=== PATIENT | female | born 1965 | race Caucasian/White ===

== ENCOUNTER 2019-07-21 07:40 | Outpatient (CLI) | payer OTHER, SELFPAY ==
[2019-07-21 08:31] LABS: Basophils Percent Auto 0.5 % (0.2-1.2); Eosinophils Absolute Auto 0.3 K/mm3 (0-0.3); Eosinophils Percent Auto 5.2 % (0-4.4); Hematocrit 37.4 % (37.0-47.0); Hemoglobin 12.2 g/dL (12.0-15.0); Immature Granulocyte Absolute 0.01 K/mm3 (0.00-0.031); Immature Granulocyte Percent A 0.2 % (0-0.5); Lymphocytes Absolute Auto 1.69 K/mm3 (0.9-3.2); Lymphocytes Percent Auto 25.9 % (18.3-44.2); Mean Corpuscular HGB Conc 32.6 g/dl (32-36); Mean Corpuscular Hemoglobin 31.2 pg (26-34); Mean Corpuscular Volume 95.7 fl (80-100); Mean Platelet Volume 10.3 fl (7.4-10.4); Monocytes Absolute Auto 0.5 K/mm3 (0.1-0.6); Monocytes Percent Auto 7.5 % (2.6-8.5); Neutrophils Percent Auto 60.7 % (45.5-73.1); Platelet Count Result 235 k/mm3 (150-375); Red Blood Count 3.91 M/mm3 (4.2-5.4); Red Cell Distribution Width 13.1 % (11.5-14.5); White Blood Count 6.5 K/mm3 (4.5-10.0)
[2019-07-21 08:37] LABS: Add Urine Microscopic? YES; Appearance Urine Cloudy (Clear); Bacteria Urine Trace /hpf; Bilirubin Urine Negative (Negative); Blood Urine Negative (Negative); Color Urine Straw (Yellow); Glucose Urine UA Negative (Negative); Ketones Urine Negative (Negative); Leukocyte Esterase Ur Trace LEU/UL (Negative); Nitrate Urine Negative (Negative); Protein Urine Negative (Negative); Squamous Epithelial Cell Urine Many /hpf (Few); Urobilinogen Urine Negative mg/dL (<2.0)
[2019-07-21 08:40] LABS: Hemoglobin A1C 5.8 % (<5.7)
[2019-07-21 08:45] LABS: Rheumatoid Factor < 8.6 IU/ML (<12)
[2019-07-21 08:49] LABS: Alanine Aminotransferase 16 U/L (4-35); Albumin Level 4.4 g/dL (3.5-5.1); Alkaline Phosphatase 70 U/L (38-126); Aspartate Amino Transferase 31 U/L (14-36); Bilirubin,Total 0.4 mg/dL (0.2-1.3); Blood Urea Nitrogen 24 mg/dL (7-17); CRP < 0.5 mg/dL (<1.0); Calcium 8.8 mg/dL (8.4-10.2); Carbon Dioxide 29 mmol/L (22-30); Chloride 99 mmol/L (98-107); Cholesterol 225 mg/dL (0-200); Estimated Glomerular Filt Rate > 60; Glucose 97 mg/dL (65-105); HDL Direct 69 mg/dL; Sodium 133 mmol/L (137-145); Triglycerides 69 mg/dL (<150); Uric Acid 4.3 mg/dL (2.5-7.5)
[2019-07-21 08:54] LABS: LDL Cholesterol Direct 139 mg/dL
[2019-07-21 08:55] LABS: Specific Grav Ur 1.004 (1.001-1.035)
[2019-07-21 09:13] LABS: Thyroid Stimulating Hormone 0.027 uIU/mL (0.465-4.680); Total Triiodothyronine (T3) 1.04 NG/ML (0.97-1.69)
[2019-07-21 10:02] LABS: Erythrocyte Sedimentation Rate 33 mm/hr (0-20)
[2019-07-23 10:31] LABS: Anti Cyclic Citrullinated Pept <16 Units (<20)
== END 2019-07-21 07:41 | disposition home or self-care (01) ==
PROVIDERS: PCP Physician Assistant; Visit Provider Physician Assistant
DX: E03.8 Other specified hypothyroidism (principal); M25.50 Pain in unspecified joint; Z78.0 Asymptomatic menopausal state; Z79.899 Other long term (current) drug therapy; Z13.220 Encounter for screening for lipoid disorders; Z13.1 Encounter for screening for diabetes mellitus
CPT/HCPCS: 36415; 80053; 80061; 81001; 82306; 83036; 84439; 84443; 84480; 84550; 85025; 85652; 86038; 86140; 86200; 86430

== ENCOUNTER 2019-09-09 09:08 | Outpatient (CLI) | payer OTHER, SELFPAY ==
[2019-09-09 09:40] LABS: Anion Gap 11.9 mmol/L (7-16); Blood Urea Nitrogen 20 mg/dL (7-17); Calcium 9.2 mg/dL (8.4-10.2); Carbon Dioxide 26 mmol/L (22-30); Chloride 102 mmol/L (98-107); Estimated Glomerular Filt Rate > 60; Glucose 107 mg/dL (65-105); Potassium 4.9 mmol/L (3.4-5.0); Sodium 135 mmol/L (137-145)
== END 2019-09-09 09:09 | disposition home or self-care (01) ==
PROVIDERS: PCP Physician Assistant; Visit Provider Physician Assistant
DX: E87.1 Hypo-osmolality and hyponatremia (principal)
CPT/HCPCS: 36415; 80048

== ENCOUNTER 2020-02-17 06:42 | Outpatient (CLI) | payer OTHER, SELFPAY ==
[2020-02-17 07:32] LABS: Basophils Percent Auto 0.4 % (0.2-1.2); Eosinophils Absolute Auto 0.2 K/mm3 (0-0.3); Eosinophils Percent Auto 4.6 % (0-4.4); Hematocrit 32.7 % (37.0-47.0); Hemoglobin 10.8 g/dL (12.0-15.0); Immature Granulocyte Absolute 0.01 K/mm3 (0.00-0.031); Immature Granulocyte Percent A 0.2 % (0-0.5); Lymphocytes Absolute Auto 1.44 K/mm3 (0.9-3.2); Lymphocytes Percent Auto 27.6 % (18.3-44.2); Mean Corpuscular Hemoglobin 31.9 pg (26-34); Mean Corpuscular Volume 96.5 fl (80-100); Mean Platelet Volume 9.8 fl (7.4-10.4); Monocytes Absolute Auto 0.4 K/mm3 (0.1-0.6); Neutrophils Absolute Auto 3.1 K/mm3 (1.3-6.7); Neutrophils Percent Auto 59.2 % (45.5-73.1); Platelet Count Result 224 k/mm3 (150-375); Red Blood Count 3.39 M/mm3 (4.2-5.4); Red Cell Distribution Width 13.1 % (11.5-14.5); White Blood Count 5.2 K/mm3 (4.5-10.0)
[2020-02-17 07:53] LABS: Alanine Aminotransferase 26 U/L (4-35); Albumin Level 3.9 g/dL (3.5-5.1); Alkaline Phosphatase 68 U/L (38-126); Anion Gap 5 mmol/L (8-16); Aspartate Amino Transferase 37 U/L (14-36); Bilirubin,Total 0.4 mg/dL (0.2-1.3); Blood Urea Nitrogen 16 mg/dL (7-17); CRP < 0.5 mg/dL (<1.0); Calcium 8.9 mg/dL (8.4-10.2); Carbon Dioxide 28 mmol/L (22-30); Chloride 104 mmol/L (98-107); Cholesterol 206 mg/dL (0-200); Estimated Glomerular Filt Rate > 60; Glucose 93 mg/dL (65-105); HDL Direct 58 mg/dL; Potassium 4.2 mmol/L (3.4-5.0); Sodium 137 mmol/L (137-145); Triglycerides 93 mg/dL (<150)
[2020-02-17 07:54] LABS: Hemoglobin A1C 5.3 % (<5.7)
[2020-02-17 07:57] LABS: Rheumatoid Factor < 8.6 IU/ML (<12)
[2020-02-17 08:02] LABS: LDL Cholesterol Direct 126 mg/dL
[2020-02-17 08:21] LABS: Free T4 Free Thyroxine 1.93 ng/mL (0.78-2.19); Thyroid Stimulating Hormone < 0.015 uIU/mL (0.465-4.680)
[2020-02-17 08:23] LABS: Erythrocyte Sedimentation Rate 45 mm/hr (0-20); Iron 59 ug/dL (37-170); Percent Iron Saturation 20 % (20-50)
[2020-02-19 13:30] LABS: Thyroid Stimulating Immunoglob <89 % baseline (<140)
[2020-02-20 02:12] LABS: Insulin Level Total 3.2 uIU/mL (<=19.6); Thyroid Peroxidase Antibodies 1 IU/mL (<9)
[2020-02-20 09:36] LABS: Anti Cyclic Citrullinated Pept <16 Units (<20)
[2020-02-20 14:57] LABS: DHEA-Sulfate 106 mcg/dL (8-188)
[2020-02-21 12:00] LABS: Testosterone Free 0.9 pg/mL (0.1-6.4); Testosterone Total 11 ng/dL (2-45)
[2020-02-21 12:21] LABS: Anti Nuclear Antibody Titer 1:40 (Negative)
== END 2020-02-17 06:43 | disposition home or self-care (01) ==
PROVIDERS: PCP Physician Assistant; Visit Provider Internal Medicine Endocrinology, Diabetes & Metabolism
DX: E06.3 Autoimmune thyroiditis (principal); R73.01 Impaired fasting glucose; L65.9 Nonscarring hair loss, unspecified; M19.90 Unspecified osteoarthritis, unspecified site
CPT/HCPCS: 36415; 80053; 80061; 82607; 82627; 82728; 82746; 83036; 83525; 83540; 83550; 84402; 84403; 84439; 84443; 84445; 84481; 85025; 85652; 86038; 86039; 86140; 86200; 86376; 86430

== ENCOUNTER 2020-02-18 06:45 | Outpatient (CLI) | payer OTHER, SELFPAY ==
[2020-02-18 08:56] LABS: Cortisol Random 0.91 ug/dL
== END 2020-02-18 06:46 | disposition home or self-care (01) ==
PROVIDERS: PCP Physician Assistant; Visit Provider Internal Medicine Endocrinology, Diabetes & Metabolism
DX: R63.5 Abnormal weight gain (principal)
CPT/HCPCS: 36415; 82533

== ENCOUNTER 2020-07-23 10:01 | Outpatient (CLI) | payer OTHER, SELFPAY ==
[2020-07-23 11:55] LABS: Alanine Aminotransferase 16 U/L (4-35); Albumin Level 4.4 g/dL (3.5-5.1); Alkaline Phosphatase 66 U/L (38-126); Anion Gap 8 mmol/L (8-16); Aspartate Amino Transferase 29 U/L (14-36); Bilirubin,Total 0.2 mg/dL (0.2-1.3); Blood Urea Nitrogen 21 mg/dL (7-17); Calcium 9.5 mg/dL (8.4-10.2); Carbon Dioxide 28 mmol/L (22-30); Chloride 104 mmol/L (98-107); Estimated Glomerular Filt Rate 58; Glucose 82 mg/dL (65-105); Potassium 4.8 mmol/L (3.4-5.0); Sodium 140 mmol/L (137-145)
[2020-07-23 12:51] LABS: Thyroid Stimulating Hormone < 0.015 uIU/mL (0.465-4.680)
[2020-07-23 13:25] LABS: Folic Acid 5.8 ng/mL (2.76->20)
[2020-07-23 14:27] LABS: Free T4 Free Thyroxine 1.78 ng/mL (0.78-2.19)
[2020-07-26 01:33] LABS: Thyroid Peroxidase Antibodies 2 IU/mL (<9)
[2020-07-27 20:53] LABS: Triiodothyronine T3 Free 2.9 pg/mL (2.3-4.2)
[2020-07-30 12:33] LABS: T3 Reverse 31 ng/dL (8-25)
== END 2020-07-23 10:02 | disposition home or self-care (01) ==
PROVIDERS: Internal Medicine Endocrinology, Diabetes & Metabolism; PCP Physician Assistant; Visit Provider Physician Assistant
DX: E06.3 Autoimmune thyroiditis (principal)
CPT/HCPCS: 36415; 80053; 82607; 82746; 84439; 84443; 84481; 84482; 86376

== ENCOUNTER 2020-12-29 06:53 | Outpatient (CLI) | payer OTHER, SELFPAY ==
[2020-12-29 07:38] LABS: Basophils Percent Auto 0.6 % (0.2-1.2); Eosinophils Absolute Auto 0.2 K/mm3 (0-0.3); Eosinophils Percent Auto 3.6 % (0-4.4); Hematocrit 34.3 % (37.0-47.0); Hemoglobin 11.5 g/dL (12.0-15.0); Immature Granulocyte Absolute 0.01 K/mm3 (0.00-0.031); Immature Granulocyte Percent A 0.2 % (0-0.5); Lymphocytes Absolute Auto 1.51 K/mm3 (0.9-3.2); Lymphocytes Percent Auto 31.7 % (18.3-44.2); Mean Corpuscular HGB Conc 33.5 g/dl (32-36); Mean Corpuscular Hemoglobin 31.3 pg (26-34); Mean Corpuscular Volume 93.5 fl (80-100); Mean Platelet Volume 10.1 fl (7.4-10.4); Monocytes Absolute Auto 0.4 K/mm3 (0.1-0.6); Neutrophils Absolute Auto 2.6 K/mm3 (1.3-6.7); Neutrophils Percent Auto 54.9 % (45.5-73.1); Platelet Count Result 252 k/mm3 (150-375); Red Blood Count 3.67 M/mm3 (4.2-5.4); Red Cell Distribution Width 13.2 % (11.5-14.5); White Blood Count 4.8 K/mm3 (4.5-10.0)
[2020-12-29 07:52] LABS: Alanine Aminotransferase 20 U/L (4-35); Albumin Level 4.3 g/dL (3.5-5.1); Alkaline Phosphatase 77 U/L (38-126); Anion Gap 10 mmol/L (8-16); Aspartate Amino Transferase 30 U/L (14-36); Bilirubin,Total 0.4 mg/dL (0.2-1.3); Blood Urea Nitrogen 22 mg/dL (7-17); Calcium 9.2 mg/dL (8.4-10.2); Carbon Dioxide 24 mmol/L (22-30); Chloride 105 mmol/L (98-107); Cholesterol 207 mg/dL (0-200); Estimated Glomerular Filt Rate 52; Glucose 108 mg/dL (65-110); HDL Direct 59 mg/dL; Potassium 4.6 mmol/L (3.4-5.0); Sodium 139 mmol/L (137-145); Triglycerides 96 mg/dL (<150)
[2020-12-29 07:54] LABS: Add Urine Microscopic? YES; Appearance Urine Cloudy (Clear); Bilirubin Urine Negative (Negative); Blood Urine Negative (Negative); Color Urine Yellow (Yellow); Glucose Urine UA Negative (Negative); Ketones Urine Negative (Negative); Leukocyte Esterase Ur Negative LEU/UL (Negative); Mucus Urine Few /lpf; Nitrate Urine Negative (Negative); Protein Urine Negative (Negative); RBC Urine 0-2 /hpf (0-2); Specific Grav Ur 1.025 (1.001-1.035); Squamous Epithelial Cell Urine Many /hpf (Few); Urobilinogen Urine Negative mg/dL (<2.0); WBC Urine 0-3 /hpf
[2020-12-29 08:03] LABS: LDL Cholesterol Direct 125 mg/dL
[2020-12-29 08:20] LABS: Thyroid Stimulating Hormone 0.058 uIU/mL (0.465-4.680)
[2020-12-29 08:55] LABS: Hemoglobin A1C 5.5 % (<5.7)
[2020-12-29 09:27] LABS: Free T4 Free Thyroxine 1.35 ng/mL (0.78-2.19)
[2020-12-31 05:41] LABS: Insulin Level Total 10.2 uIU/mL (<=19.6)
[2021-01-01 15:54] LABS: Triiodothyronine T3 Free 3.3 pg/mL (2.3-4.2)
[2021-01-01 19:21] LABS: Testosterone Free 1.8 pg/mL (0.1-6.4); Testosterone Total 12 ng/dL (2-45)
[2021-01-07 09:26] LABS: DHEA-Sulfate 100 mcg/dL (8-188)
== END 2020-12-29 06:54 | disposition home or self-care (01) ==
PROVIDERS: PCP Physician Assistant; Referring Provider Physician Assistant; Visit Provider Internal Medicine Endocrinology, Diabetes & Metabolism
DX: R73.01 Impaired fasting glucose (principal); Z13.220 Encounter for screening for lipoid disorders; Z13.1 Encounter for screening for diabetes mellitus; Z51.81 Encounter for therapeutic drug level monitoring; Z79.899 Other long term (current) drug therapy; L68.0 Hirsutism; E89.0 Postprocedural hypothyroidism
CPT/HCPCS: 36415; 80053; 80061; 81001; 82627; 83036; 83525; 84402; 84403; 84439; 84443; 84481; 85025

== ENCOUNTER 2021-02-02 00:21 | Day surgery (SDC) | payer OTHER, SELFPAY ==
[2021-01-20 14:23] VITALS: BMI 40.9
--- NOTE | 2021-02-01 13:18 | PM.HPGS ---
History of Present Illness History of Present Illness Consent: Risks, benefits, and alternatives have been discussed and questions answered. Patient agrees to proceed with procedure. Chief complaint: neoplasm screening Narrative: Kristel Conner is a 55 year old female who was referred for colon cancer screening Review of Systems Review of Systems: All systems reviewed & are unremarkable except as noted in HPI and below PMFSH Social History Social History Smoking status: Former smoker Tobacco type: cigarettes Drinks per week: 2 Substance use: never Substance use type: does not use Living arrangements: with family Spiritual care concerns: No Meds Home Medications and Allergies Home Medications Medication Instructions Recorded Confirmed Type alprazolam 0.5 mg PO DAILY 01/20/21 01/20/21 History levothyroxine 125 mcg PO DAILY 01/20/21 01/20/21 History lisinopril 20 mg PO DAILY 01/20/21 01/20/21 History metoprolol tartrate 25 mg PO BID 01/20/21 01/20/21 History Allergies Allergy/AdvReac Type Severity Reaction Status Date / Time epinephrine Allergy Severe VOMITING, Verified 02/02/21 07:19 SYNCOPE Sulfa (Sulfonamide Allergy Mild TONGUE Verified 02/02/21 07:19 Antibiotics) SWELLS,CAN'T BREATH codeine Allergy Unknown NAUSEA,TING Verified 02/02/21 07:19 LING,HEADAC HE NSAIDS (Non-Steroidal Allergy Unknown Other Verified 02/02/21 07:19 Anti-Inflamma Exam Const: General: alert Orientation/consciousness: patient oriented x3 Resp: Auscultation: clear to auscultation bilaterally Cardio: Rhythm: regular rhythm GI: GI Palp: Yes Soft to palpation and No Tenderness to palpation present (GI) Neuro: General: patient oriented x3 Assessment and Plan Assessment and plan (1) Colon cancer screening: Code(s): Z12.11 - Encounter for screening for malignant neoplasm of colon Status: Acute Assessment and Plan: Colonoscopy with possible biopsy or polypectomy or cautery or injection of substances.
[2021-02-02 07:20] VITALS: BP 152/100; PULSE 99; RESP 18; TEMP 36.2; O2SAT 97
[2021-02-02] MEDS: LACTATED RINGERS 1,000 ML 150 ML IV CONT (07:39)
--- NOTE | 2021-02-02 07:59 | P.PNAN_ITS ---
Anes - Initial Pre Proc Eval Procedure: Operation Date: 02/02/21 08:30 Proposed Procedures p Screening Colonoscopy - Indio Pereyra MD Date/Time: 02/02/21 07:59 Surgeon: Indio Pereyra MD Pre Op Diagnosis: neoplasm screening Patient Data Age: 55 Gender: F Height: 1.78 m Weight: 136 kg Last Vital Signs Temp 97.2 F L 02/02/21 07:20 Pulse 99 02/02/21 07:20 Resp 18 02/02/21 07:20 BP 152/100 H 02/02/21 07:20 Pulse Ox 97 02/02/21 07:20 Allergies Allergy/AdvReac Type Severity Reaction Status Date / Time epinephrine Allergy Severe VOMITING, Verified 02/02/21 07:19 SYNCOPE Sulfa (Sulfonamide Allergy Mild TONGUE Verified 02/02/21 07:19 Antibiotics) SWELLS,CAN'T BREATH codeine Allergy Unknown NAUSEA,TING Verified 02/02/21 07:19 LING,HEADAC HE NSAIDS (Non-Steroidal Allergy Unknown Other Verified 02/02/21 07:19 Anti-Inflamma Home Medications Medication Instructions Recorded Confirmed Type alprazolam 0.5 mg PO DAILY 01/20/21 01/20/21 History levothyroxine 125 mcg PO DAILY 01/20/21 01/20/21 History lisinopril 20 mg PO DAILY 01/20/21 01/20/21 History metoprolol tartrate 25 mg PO BID 01/20/21 01/20/21 History Patient hx anesthesia problems: none Family hx anesthesia problems: none Results Review: All pre-operative results and documents have been reviewed as part of the pre-operative evaluation. [facility] Social History Social History (System 06/19/19 @ 11:54 by Breonna Grimaldo) Smoking status: Former smoker Tobacco type: cigarettes Drinks per week: 2 Substance use: never Substance use type: does not use Living arrangements: with family Spiritual care concerns: No Anes - Eval Final PreProcedure Day of Procedure 02/02/21 07:59 Patient weight: morbidly obese Heart: regular rate and rhythm Lungs: clear to auscultation Airway: Mallampati scale class III Neurological: alert and oriented Last oral intake: >/= 8 hours ASA classification: III Emergent: no Anesthetic plan: proceed Anesthesia type and monitoring: general GIVS and standard monitoring Results Review: All pre-operative results and documents have been reviewed as part of the pre-operative evaluation. Informed Consent: The patient's anesthetic plan and its attendant risks and benefits were discussed with the patient/family/POA. Questions were solicited and answers provided to the satisfaction of the patient/family/POA.
[2021-02-02] MEDS: SIMETHICONE ORAL SUSPENSION 20 MG/0.3 ML 30 ML BOTTLE 0.6 ML IRRIGATION (08:36)
[2021-02-02 08:45] VITALS: BP 88/49; PULSE 62; RESP 15; O2SAT 95
[2021-02-02 08:55] VITALS: BP 100/67; PULSE 60; RESP 19; O2SAT 98
[2021-02-02 09:05] VITALS: BP 118/68; PULSE 61; RESP 22; O2SAT 100
== END 2021-02-02 09:15 | disposition home or self-care (01) ==
PROVIDERS: PCP Physician Assistant; Visit Provider Internal Medicine Gastroenterology
PROC: 0DJD8ZZ Inspection of Lower Intestinal Tract, Via Natural or Artificial Opening Endoscopic (ICD-10-PCS; CPT 45378; principal; 2021-02-02 08:30)
DX: Z12.11 Encounter for screening for malignant neoplasm of colon (principal); K57.30 Diverticulosis of large intestine without perforation or abscess without bleeding
CPT/HCPCS: 45378; J2704; J7120

== ENCOUNTER 2021-02-08 14:10 | Outpatient (CLI) | payer OTHER, SELFPAY ==
--- NOTE | ~2021-02-08 | MM_ITS ---
EXAMINATION: MM screening pili BI w iliana HISTORY: Screening TECHNIQUE: Craniocaudal and mediolateral oblique 3-D tomosynthesis images were obtained and synthetic 2-D images were generated. CAD analysis was submitted and interpreted. COMPARISON: No prior mammogram is available for comparison at this institution. BREAST PARENCHYMAL COMPOSITION: There are scattered areas of fibroglandular density. FINDINGS: There is no evidence of suspicious mass, calcification, or architectural distortion to sugg est malignancy in either breast. There has been no suspicious interval change. IMPRESSION: 1. No mammographic evidence of malignancy. 2. Recommend routine screening mammography in one year. BI-RADS Category 1: Negative Reviewed, dictated and finalized at location A. S HANDLER
== END 2021-02-08 14:11 | disposition home or self-care (01) ==
LOC: ANHIMG 14:13
PROVIDERS: PCP Physician Assistant; Visit Provider Physician Assistant
DX: Z12.31 Encounter for screening mammogram for malignant neoplasm of breast (principal)
CPT/HCPCS: 77063; 77067

== ENCOUNTER 2022-01-11 11:14 | Emergency (ER) | payer OTHER, SELFPAY ==
[2022-01-11] VITALS (7 sets, daily range): BP systolic 105–143; BP diastolic 50–84; PULSE 77–94; RESP 16–20; TEMP 36.7–37.1; O2SAT 98–99
--- NOTE | ~2022-01-11 | CT_ITS ---
EXAMINATION: CTA chest PE protocol DATE: 01/11/2022 16:38 INDICATION: Shortness of breath, pleuritic chest pain. Superficial vein clot left lower extremity. TECHNIQUE: Computed tomography angiography (CTA) of the chest was performed with 100 mL Omnipaque-350 intravenous contrast timed to evaluate the pulmonary arteries. Coronal maximum intensity projection 3D-reconstructions were created by the technologist. Automated exposure control and iterative reconst ruction technique were employed. Exam dose: 1026.33 mGy-cm total exam DLP. COMPARISON: None. FINDINGS: There is diagnostic contrast enhancement of the pulmonary arteries and no evidence of pulmo nary embolism. No thoracic aortic aneurysm or dissection. Normal heart size. No hilar or mediastinal mass lesion or lymphadenopathy. Normal heart size. No pericardial or pleural effusion. No pulmonary infiltrate or consolidation or pulmonary mass lesion. Small soft tissue mass of each limb of the right adrenal gland, likely a small adrenal adenomas. Status post cholecystectomy. Included skeletal structures are unremarkable other than degenerative disc disease in the lower cervi sheri spine.. IMPRESSION: No evidence of pulmonary embolism Reviewed, dictated and finalized at Location [facility]. Reviewed, dictated and finalized at location A. ROAD CAR INSPECTOR
--- NOTE | ~2022-01-11 | XR_ITS ---
EXAMINATION: XR chest 1V 01/11/2022 13:03 INDICATION: Redness of breath PROCEDURE: AP view of the chest COMPARISON: Comparison to multiple prior studies sequentially, with oldest reviewed study dated 04/2008. FINDINGS: The lungs are clear. The cardiomediastinal silhouette is within normal limits. There are no pleural effusions. There is no pneumothorax suspected. IMPRESSION: 1: NO ACUTE CARDIOPULMONARY DISEASE. Reviewed, dictated and finalized at location A. ATIONS AND INTELLIGENCE ASSISTANT
--- NOTE | ~2022-01-11 | US_ITS ---
EXAMINATION: US venous doppler [facility] DATE: 01/11/2022 15:40 INDICATION: LLE PAIN AND SWELLING X 4DAYS . TECHNIQUE: Grayscale images without and with compression and Doppler images of the left lower extremi ty veins were obtained. COMPARISON: None FINDINGS: The distal greater saphenous vein below the level of the knee is dilated, noncompressible, and contai ns no flow. The left common femoral vein, profunda femoral vein, femoral vein, popliteal vein, perone al vein, posterior tibial veins, and gastrocnemius vein are patent. IMPRESSION: 1. Superficial venous thrombosis involving the distal greater saphenous vein, below the level of the knee. 2. No other areas thrombosis detected in the left lower extremity. Results reported telephonically to STEPHAN Guo by Dr. Draper at 3:45 PM on 01/11/2022. Reviewed, dictated and finalized at location K. LOGY PROFESSOR
--- NOTE | 2022-01-11 12:11 | ECG_ITS ---
Measurements Intervals [place] Rate: 81 P: 62 MD: 194 QRS: 36 QRSD: 95 T: 33 QT: 359 QTc: 419 Interpretive Statements SINUS RHYTHM LOW QRS VOLTAGE IN PRECORDIAL LEADS INCOMPLETE RIGHT BUNDLE BRANCH BLOCK CANNOT RULE OUT SEPTAL INFARCT, AGE INDETERMINATE BORDERLINE ST-T WAVE ABNORMALITY- INFERIOR LEADS ABNORMAL ECG NO PREVIOUS ECG AVAILABLE FOR COMPARISON Electronically Signed On 01-11-2022 12:41:02 ANIMAL CARE SPECIALIST by Uvaldo Torres D.O.
[2022-01-11 12:44] LABS: Basophils Percent Auto 0.3 % (0.2-1.2); Eosinophils Absolute Auto 0.1 K/mm3 (0-0.3); Eosinophils Percent Auto 1.2 % (0-4.4); Hematocrit 36.4 % (37.0-47.0); Hemoglobin 12.1 g/dL (12.0-15.0); Immature Granulocyte Absolute 0.02 K/mm3 (0.00-0.031); Immature Granulocyte Percent A 0.3 % (0-0.5); Lymphocytes Absolute Auto 0.93 K/mm3 (0.9-3.2); Lymphocytes Percent Auto 14.3 % (18.3-44.2); Mean Corpuscular HGB Conc 33.2 g/dl (32-36); Mean Corpuscular Hemoglobin 32.2 pg (26-34); Mean Corpuscular Volume 96.8 fl (80-100); Mean Platelet Volume 9.7 fl (7.4-10.4); Monocytes Absolute Auto 0.8 K/mm3 (0.1-0.6); Monocytes Percent Auto 12.5 % (2.6-8.5); Neutrophils Absolute Auto 4.6 K/mm3 (1.3-6.7); Neutrophils Percent Auto 71.4 % (45.5-73.1); Platelet Count Result 262 k/mm3 (150-375); Red Blood Count 3.76 M/mm3 (4.2-5.4); Red Cell Distribution Width 13.2 % (11.5-14.5); White Blood Count 6.5 K/mm3 (4.5-10.0)
[2022-01-11 12:50] LABS: Alanine Aminotransferase 24 U/L (6-35); Albumin Level 4.5 g/dL (3.5-5.1); Alkaline Phosphatase 84 U/L (38-126); Anion Gap 9 mmol/L (8-16); Aspartate Amino Transferase 33 U/L (14-36); Bilirubin,Total 0.7 mg/dL (0.2-1.3); Blood Urea Nitrogen 19 mg/dL (7-17); Calcium 9.2 mg/dL (8.4-10.2); Carbon Dioxide 23 mmol/L (22-30); Chloride 101 mmol/L (98-107); Estimated CRCL calculation 81 ml/min; Estimated Glomerular Filt Rate 51; Glucose 114 mg/dL (65-110); Potassium 3.9 mmol/L (3.4-5.0); Sodium 133 mmol/L (137-145)
[2022-01-11 13:16] LABS: Influenza A QL RT-PCR Negative (Negative); Influenza B QL RT-PCR Negative (Negative); RSV RNA, RT-PCR Negative (Negative); SARS-CoV-2 RNA PCR Negative
[2022-01-11] MEDS: ONDANSETRON INJ 4 MG/2 ML VIAL IV PUSH (16:17)
[2022-01-11] MEDS: SODIUM CHLORIDE 0.9% IV 1,000 ML 999 ML IV CONT (16:18)
--- NOTE | 2022-01-11 16:25 | ED.EXTPRO ---
HPI - Extremity Problem General Chief complaint: Extremity Problem,Nontraumatic Stated complaint: Left leg swelling/pain/numbness Time Seen by Provider: 01/11/22 14:45 Source: patient Mode of arrival: ambulatory Limitations: no limitations History of Present Illness HPI Narrative: Patient is a 56-year-old female who presents the ED with multiple complaints. Patient reports she woke up day morning with several symptoms, including pain, swelling, and redness to her LLE, medial knee, as well as mild SOB, pain in midsternal chest with deep breaths, muscle aches, headaches, nausea, decreased appetite, cough, congestion, subjective fevers. She denies history of similar symptoms. She denies sick contacts. Denies recent long distance travel, hormonal control use, history of blood clots, CP at rest. No abdominal pain, vomiting, diarrhea, urinary sx's. Related Data Home Medications Medication Instructions Recorded Confirmed alprazolam 0.5 mg tablet 0.5 mg PO DAILY 01/20/21 01/20/21 levothyroxine 150 mcg tablet 125 mcg PO DAILY 01/20/21 01/20/21 lisinopril 20 mg tablet 20 mg PO DAILY 01/20/21 01/20/21 metoprolol tartrate 25 mg tablet 25 mg PO BID 01/20/21 01/20/21 Allergies Allergy/AdvReac Type Severity Reaction Status Date / Time epinephrine Allergy Severe VOMITING, Verified 02/02/21 07:19 SYNCOPE Sulfa (Sulfonamide Allergy Mild TONGUE Verified 02/02/21 07:19 Antibiotics) SWELLS,CAN'T BREATH codeine Allergy Unknown NAUSEA,TING Verified 02/02/21 07:19 LING,HEADAC HE NSAIDS (Non-Steroidal Allergy Unknown Other Verified 02/02/21 07:19 Anti-Inflamma Review of Systems Review of Systems: CONSTITUTIONAL: Reports subjective fevers, decreased appetite. ENT: Reports congestion. CARDIOVASCULAR: Reports CP with deep breathing. Denies palpitations. RESPIRATORY: Reports cough, dyspnea. GASTROINTESTINAL: Reports nausea. Denies abdominal pain, vomiting, or diarrhea. GENITOURINARY: Denies dysuria or hematuria. SKIN: Reports redness and swelling to left lower extremity. MUSCULOSKELETAL: Reports left lower extremity pain, myalgias. NEUROLOGIC: Reports headache. Denies numbness or weakness. All systems reviewed & are unremarkable except as noted in HPI and below PMFSH Past Medical History Medical History Anxiety HTN (hypertension) Hypothyroidism Psoriatic arthritis Surgical History Surgical History History of colonoscopy Social History Social History Smoking status: Former smoker Tobacco type: cigarettes Drinks per week: 2 Substance use: never Substance use type: does not use Spiritual care concerns: No Exam Narrative: GENERAL: Well appearing, morbidly obese, non-toxic, in no acute distress. HEAD: Normocephalic, atraumatic. EENT: PERRLA/EOMI, conjunctiva clear, minimal posterior pharynx erythema, no tonsillar hypertrophy or exudate. Uvula midline. Maintaining secretions. NECK: Supple. No adenopathy, no masses. RESPIRATORY: Airway patent, respirations nonlabored. Clear to auscultation bilaterally, no rales, rhonchi, wheezing. CARDIOVASCULAR: Regular rate and rhythm without murmurs, rubs, or gallops. Pedal pulses 2+ and equal bilaterally. ABDOMINAL: Soft, no appreciable tenderness to palpation. Nondistended, no hepatosplenomegaly. Normoactive BS. MUSCULOSKELETAL: Moves all extremities. Strength/ROM intact without gross deformities. SKIN: Warm, dry, normal color. No rashes. Patient with hand sized area of redness, warmth, tenderness to palpation to left medial lower leg, just below level of knee joint. No tenderness, warmth, or redness of anterior knee. NEURO: A&O X3. Speech clear. Cranial nerves II-XII grossly intact. No ataxic movements. PSYCHIATRIC: Appropriate mood and affect. Normal interaction. Co
[2022-01-11 16:30] LABS: Appearance Urine Cloudy (Clear); Bilirubin Urine 2+ (Negative); Blood Urine Negative (Negative); Color Urine Amber (Yellow); Glucose Urine UA Negative (Negative); Ketones Urine Trace mg/dL (Negative); Leukocyte Esterase Ur 1+ LEU/UL (Negative); Nitrate Urine Negative (Negative); Protein Urine 2+ mg/dL (Negative); Specific Grav Ur >= 1.030 (1.001-1.035)
[2022-01-11 16:33] LABS: Bacteria Urine Trace /hpf; Mucus Urine Heavy /lpf; Squamous Epithelial Cell Urine Many /hpf (Few); WBC Urine 0-3 /hpf
[2022-01-11 16:47] LABS: Prothrombin Time 13.2 Seconds (11.1-14.7)
[2022-01-11 16:48] LABS: Partial Thromboplastin Time 29.7 SECONDS (22.3-36.8)
[2022-01-11 17:11] LABS: Troponin I < 0.012 ng/mL (0.000-0.034)
[2022-01-11 17:27] LABS: Add Urine Microscopic? YES
--- NOTE | 2022-01-11 19:12 | PC.NURSE ---
no iv fluids d/t infiltrated iv
== END 2022-01-11 19:14 | disposition home or self-care (01) ==
PROVIDERS: Emergency Medicine; Emergency Provider Physician Assistant; PCP Physician Assistant
DX: J06.9 Acute upper respiratory infection, unspecified (principal); I82.812 Embolism and thrombosis of superficial veins of left lower extremity; E86.0 Dehydration; I45.10 Unspecified right bundle-branch block; Z20.822 Contact with and (suspected) exposure to COVID-19; F41.9 Anxiety disorder, unspecified; I10 Essential (primary) hypertension; E03.9 Hypothyroidism, unspecified; L40.50 Arthropathic psoriasis, unspecified
CPT/HCPCS: 36415; 71045; 71275; 80053; 81001; 81025; 84484; 85025; 85610; 85730; 87086; 87088; 87637; 93005; 93971; 96361; 96374; 99284; J2405; J7030; Q9967

== ENCOUNTER 2022-01-16 15:30 | Outpatient (CLI) | payer OTHER, SELFPAY ==
[2022-01-16 16:26] LABS: Hematocrit 33.3 % (37.0-47.0); Hemoglobin 11.3 g/dL (12.0-15.0); Mean Corpuscular HGB Conc 33.9 g/dl (32-36); Mean Corpuscular Hemoglobin 32.4 pg (26-34); Mean Corpuscular Volume 95.4 fl (80-100); Mean Platelet Volume 9.7 fl (7.4-10.4); Platelet Count Result 302 k/mm3 (150-375); Red Blood Count 3.49 M/mm3 (4.2-5.4); White Blood Count 6.3 K/mm3 (4.5-10.0)
[2022-01-16 16:48] LABS: Alanine Aminotransferase 27 U/L (6-35); Albumin Level 4.4 g/dL (3.5-5.1); Alkaline Phosphatase 80 U/L (38-126); Anion Gap 12 mmol/L (8-16); Aspartate Amino Transferase 36 U/L (14-36); Bilirubin,Total 0.6 mg/dL (0.2-1.3); Blood Urea Nitrogen 13 mg/dL (7-17); Calcium 8.6 mg/dL (8.4-10.2); Carbon Dioxide 24 mmol/L (22-30); Chloride 101 mmol/L (98-107); Cholesterol 232 mg/dL (0-200); Estimated Glomerular Filt Rate 51; Glucose 98 mg/dL (65-110); HDL Direct 44 mg/dL; Potassium 3.8 mmol/L (3.4-5.0); Sodium 137 mmol/L (137-145); Triglycerides 95 mg/dL (<150)
[2022-01-16 17:00] LABS: LDL Cholesterol Direct 131 mg/dL
[2022-01-16 17:57] LABS: Hemoglobin A1C 5.6 % (<5.7)
[2022-01-16 18:23] LABS: Free T4 Free Thyroxine 1.17 ng/mL (0.78-2.19)
[2022-01-16 18:43] LABS: Folic Acid 5.6 ng/mL (2.76->20)
[2022-01-19 12:41] LABS: Insulin Level Total 11.7 uIU/mL (<=19.6)
[2022-01-20 05:51] LABS: Triiodothyronine T3 Free 1.4 pg/mL (2.3-4.2)
== END 2022-01-16 15:31 | disposition home or self-care (01) ==
LOC: ANHLAB 15:35
PROVIDERS: PCP Physician Assistant; Visit Provider Physician Assistant
DX: E03.9 Hypothyroidism, unspecified (principal); R73.03 Prediabetes; E78.5 Hyperlipidemia, unspecified; Z79.899 Other long term (current) drug therapy; Z68.42 Body mass index [BMI] 45.0-49.9, adult
CPT/HCPCS: 36415; 80053; 80061; 82607; 82746; 83036; 83525; 84439; 84443; 84481; 85027

== ENCOUNTER 2022-01-19 10:42 | Emergency (ER) | payer OTHER, SELFPAY ==
[2022-01-19] VITALS (37 sets, daily range): BP systolic 98–139; BP diastolic 53–83; PULSE 76–98; RESP 12–21; TEMP 36.6; O2SAT 95–100
--- NOTE | 2022-01-19 12:47 | ECG_ITS ---
Measurements Intervals [place] Rate: 80 P: 55 DE: 199 QRS: 41 QRSD: 95 T: -2 QT: 358 QTc: 415 Interpretive Statements SINUS RHYTHM LOW QRS VOLTAGE IN PRECORDIAL LEADS [QRS DEFLECTION < 1.0 mV IN CHEST LEADS] NONSPECIFIC T-WAVE ABNORMALITY ANTEROSEPTAL MYOCARDIAL INFARCTION , OLD COMPARED TO ECG 01/11/2022 12:17:08 NO SIGNIFICANT CHANGES Electronically Signed On 01-20-2022 7:39:17 WEB OPERATIONS SPECIALIST by Nikhil Martinez M.D.
[2022-01-19 14:02] LABS: Basophils Percent Auto 0.2 % (0.2-1.2); Eosinophils Percent Auto 0.1 % (0-4.4); Hematocrit 35.1 % (37.0-47.0); Hemoglobin 11.5 g/dL (12.0-15.0); Immature Granulocyte Absolute 0.06 K/mm3 (0.00-0.031); Immature Granulocyte Percent A 0.7 % (0-0.5); Lymphocytes Percent Auto 8.8 % (18.3-44.2); Mean Corpuscular HGB Conc 32.8 g/dl (32-36); Mean Corpuscular Hemoglobin 31.5 pg (26-34); Mean Corpuscular Volume 96.2 fl (80-100); Mean Platelet Volume 9.9 fl (7.4-10.4); Monocytes Absolute Auto 1.2 K/mm3 (0.1-0.6); Monocytes Percent Auto 13.1 % (2.6-8.5); Neutrophils Absolute Auto 7.1 K/mm3 (1.3-6.7); Neutrophils Percent Auto 77.1 % (45.5-73.1); Platelet Count Result 311 k/mm3 (150-375); Red Blood Count 3.65 M/mm3 (4.2-5.4); Red Cell Distribution Width 13.2 % (11.5-14.5); White Blood Count 9.1 K/mm3 (4.5-10.0)
[2022-01-19 14:17] LABS: Alanine Aminotransferase 31 U/L (6-35); Albumin Level 4.6 g/dL (3.5-5.1); Alkaline Phosphatase 78 U/L (38-126); Anion Gap 10 mmol/L (8-16); Aspartate Amino Transferase 45 U/L (14-36); Bilirubin,Total 0.8 mg/dL (0.2-1.3); Blood Urea Nitrogen 12 mg/dL (7-17); Calcium 8.9 mg/dL (8.4-10.2); Carbon Dioxide 27 mmol/L (22-30); Chloride 95 mmol/L (98-107); Estimated CRCL calculation 98 ml/min; Estimated Glomerular Filt Rate > 60; Glucose 116 mg/dL (65-110); Potassium 4.2 mmol/L (3.4-5.0); Sodium 132 mmol/L (137-145)
[2022-01-19 14:28] LABS: Troponin I < 0.012 ng/mL (0.000-0.034)
--- NOTE | 2022-01-19 15:25 | ED.GENADULT ---
HPI - General Adult General Chief complaint: Extremity Problem,Nontraumatic Stated complaint: L LEG PAIN, DIZZINESS Time Seen by Provider: 01/19/22 12:08 Source: patient Mode of arrival: wheelchair Limitations: no limitations History of Present Illness HPI narrative: 56-year-old with a history of hypertension, anxiety, psoriatic arthritis here with complaints of passing out spells. Patient states that she has been having near syncopal episodes every time she stands for long period of time. She states that she was scheduled to get a Holter monitor this morning was on her way to the cardiology office passed out. She also complains of left leg pain and swelling. Patient was here in the ER few days ago had an ultrasound which showed superficial thrombophlebitis she also complains of numbness to the right leg. She denies any palpitations or chest pain prior to the event. Has constant headache. No history of nausea or vomiting. Onset (ago): month(s) Relieving factors: rest Exacerbating factors: other (Prolonged standing) Associated symptoms: denies other symptoms Related Data Home Medications Medication Instructions Recorded Confirmed alprazolam 0.5 mg tablet 0.5 mg PO DAILY 01/20/21 01/20/21 levothyroxine 150 mcg tablet 125 mcg PO DAILY 01/20/21 01/20/21 lisinopril 20 mg tablet 20 mg PO DAILY 01/20/21 01/20/21 metoprolol tartrate 25 mg tablet 25 mg PO BID 01/20/21 01/20/21 Allergies Allergy/AdvReac Type Severity Reaction Status Date / Time epinephrine Allergy Severe VOMITING, Verified 02/02/21 07:19 SYNCOPE Sulfa (Sulfonamide Allergy Mild TONGUE Verified 02/02/21 07:19 Antibiotics) SWELLS,CAN'T BREATH codeine Allergy Unknown NAUSEA,TING Verified 02/02/21 07:19 LING,HEADAC HE NSAIDS (Non-Steroidal Allergy Unknown Other Verified 02/02/21 07:19 Anti-Inflamma Review of Systems Review of Systems: All systems reviewed & are unremarkable except as noted in HPI and below Constitutional: Constitutional: Reports no additional constitutional complaints Eyes: Eyes: Reports no additional eye complaints ENT: Reports system reviewed and no additional complaints, except as documented Cardiovascular: Cardiovascular: Reports as per HPI Respiratory: Respiratory: Reports no additional respiratory complaints Gastrointestinal: Gastrointestinal: Reports no additional gastrointestinal complaints Musculoskeletal: Musculoskeletal: Reports no additional musculoskeletal complaints Integumentary/Breasts: Skin/Breast: Reports system reviewed and no additional complaints, except as docu Neurologic: Reports as per [facility] Past Medical History Medical History Anxiety HTN (hypertension) Hypothyroidism Psoriatic arthritis Surgical History Surgical History History of colonoscopy Social History Social History Smoking status: Former smoker Tobacco type: cigarettes Drinks per week: 2 Substance use: never Substance use type: does not use Spiritual care concerns: No Exam Narrative: GENERAL: Well-appearing, well-nourished, and in no acute distress. HEAD: Normocephalic, atraumatic. EYES: PERRLA and EOMI. NECK: Supple. CHEST: Clear to auscultation. No respiratory distress. HEART: Regular rate and rhythm. No murmur heard. Normal peripheral pulses. ABDOMEN: Soft, nontender, nondistended, normal active bowel sounds. EXTREMITIES: Normal range of motion. No edema. SKIN: Warm, dry, no rash. NEURO: No focal deficits. Alert and oriented x3. PSYCH: Normal mood and affect. Course Course Emergency Course: Patient is not orthostatic here in the ER. Do EKG and cardiac work-up both were normal. Recommended her to follow-up with line tester. Discussed findings with patient and family Vital Signs Vital signs: Vital Signs Temperature
== END 2022-01-19 15:35 | disposition home or self-care (01) ==
PROVIDERS: Emergency Provider Family Medicine; PCP Physician Assistant
DX: R55 Syncope and collapse (principal); R42 Dizziness and giddiness; I10 Essential (primary) hypertension; L40.50 Arthropathic psoriasis, unspecified; E03.9 Hypothyroidism, unspecified; F41.9 Anxiety disorder, unspecified; Z87.891 Personal history of nicotine dependence; R94.31 Abnormal electrocardiogram [ECG] [EKG]
CPT/HCPCS: 36415; 80053; 84484; 85025; 93005; 99284

== ENCOUNTER 2022-01-23 10:49 | Inpatient (IN) | payer OTHER, SELFPAY ==
[2022-01-23] VITALS (7 sets, daily range): BP systolic 85–146; BP diastolic 54–78; PULSE 82–100; RESP 18–20; TEMP 36.6–37.1; O2SAT 96–99; BMI 47.8
--- NOTE | ~2022-01-23 | US_ITS ---
EXAMINATION: US renal BI DATE: 01/24/2022 09:46 INDICATION: Renal insufficiency TECHNIQUE: Multiple ultrasound grayscale images of the kidneys were obtained. COMPARISON: None. FINDINGS: The right kidney measures 11.6 x 4.9 x 5.4 cm. The left kidney measures 11.0 x 6.0 x 5.9 cm. The kidn eys demonstrate normal echogenicity. There is no hydronephrosis in either kidney. No stones identifi ed. The bladder is normal. IMPRESSION: 1. Normal kidneys without hydronephrosis. Reviewed, dictated and finalized at location A. FINISHER TAILOR
--- NOTE | ~2022-01-23 | US_ITS ---
EXAMINATION: US carotid duplex BI DATE: 01/24/2022 12:01 INDICATION: Syncope TECHNIQUE: Grayscale, color Doppler, and pulsed Doppler images of the cervical carotid arteries were obtained. The degree of vessel stenosis is placed in one of the following categories: normal, <50%, 5 0-69%, >=70% but less than near-occlusion, near-occlusion, or total occlusion. Note that percent sten osis relative to normal distal artery lumen diameter is indirectly measured from velocity measurement s as described by Alexander, et al. Radiology 2003; [id number]:[id number]. COMPARISON: None. FINDINGS: RIGHT: The right common carotid artery (CCA) peak systolic velocity (PSV) is 82 cm/s. The right internal car otid artery (ICA) PSV is 88 cm/s. The right ICA end-diastolic velocity (EDV) is 35 cm/s. The right IC A/CCA PSV ratio is 1.1. Grayscale and color Doppler images yield an estimate of <50% diameter reducti on from plaque in the ICA. The external carotid artery (ECA) PSV is 65 cm/s. There is antegrade flow in the right vertebral artery. LEFT: The left CCA PSV is 84 cm/s. The left ICA PSV is 66 cm/s. The left ICA EDV is 77 cm/s. The left ICA/C CA PSV ratio is 0.8. Grayscale and color Doppler images yield an estimate of <50% diameter reduction from plaque in the ICA. The ECA PSV is 77 cm/s. There is antegrade flow in the left vertebral artery. IMPRESSION: 1. <50% stenosis in the right internal carotid artery. 2. <50% stenosis in the left internal carotid artery. Reviewed, dictated and finalized at location A. K REPAIR WORKER
--- NOTE | ~2022-01-23 | NM_ITS ---
EXAMINATION: NM pulmonary perfusion DATE: 01/23/2022 15:48 INDICATION: Excessive deep venous thrombosis TECHNIQUE: 5.5 mCi Tc-99m MAA by intravenous route. Scintigraphic images of the chest were obtained. COMPARISON: 01/11/2022 FINDINGS: There are couple small perfusion defects along the right lung base. Large perfusion defect involving the anteromedial basal segment of the left lower lobe There is relatively homogeneous perfusion throu ghout the lungs. No discrete ventilation and perfusion mismatch is identified. IMPRESSION: 1. Intermediate probability for pulmonary embolism. Reviewed, dictated and finalized at location A. FORM SOFTWARE ENGINEER
--- NOTE | ~2022-01-23 | XR_ITS ---
EXAMINATION: XR chest 2V Exam Date/Time: 01/23/2022 15:45 SAUSAGE TIER HISTORY: for VQ study, HX HTN Comparison: 01/11/2022. RESULT: Lines, tubes, and devices: An electronic device overlies the chest. Lungs and pleura: Clear. Cardiomediastinal silhouette: Stable. Other: No acute osseous or upper abdominal finding. IMPRESSION: No acute cardiopulmonary process. Reviewed, dictated and finalized at location K. AGE TIER
--- NOTE | ~2022-01-23 | US_ITS ---
EXAMINATION: US venous doppler [facility] DATE: 01/23/2022 13:46 INDICATION: Left lower limb pain and swelling TECHNIQUE: Grayscale ultrasound images without and with compression and Doppler ultrasound images of the left lower extremity veins were obtained. COMPARISON: 01/11/2022 FINDINGS: There is new extensive noncompressible deep venous thrombosis beginning approximately at the left com mon femoral vein and extending more distally in the visualized portions of the left profunda (deep) f emoral vein, femoral vein, popliteal vein, peroneal veins, posterior tibial veins, lesser saphenous v ein and greater saphenous vein outflow are patent. IMPRESSION: 1. Extensive deep venous thrombosis throughout the veins of the left lower limb beginning distally a t the posterior tibial and peroneal veins at the calf extending proximally to the left common femoral vein. Reviewed, dictated and finalized at location A. IONEER AUTOMOBILE IMPRESSION: 1. Extensive deep venous thrombosis throughout the veins of the left lower mckeon b beginning distally at the posterior tibial and peroneal veins at the calf ext ending proximally to the left common femoral vein.
--- NOTE | 2022-01-23 12:04 | ED.EXTPRO ---
HPI - Extremity Problem General Chief complaint: Extremity Problem,Nontraumatic Stated complaint: leg swelling/cellulitis Time Seen by Provider: 01/23/22 11:25 History of Present Illness HPI Narrative: 56-year-old female presented to the emergency department for evaluation of worsening left lower leg swelling. Patient states when she was here on the for lower leg pain and was found to have a superficial venous thrombosis. Patient then had onset of lower leg swelling and presented to the ed on 01/19. Return to the ED today for further evaluation due to worsening leg pain and swelling. Patient states that when she ambulates the pain is a 7 out of 10. At rest she denies any significant pain. Patient states she has also been having time for frequent episodes of syncope. Related Data Home Medications Medication Instructions Recorded Confirmed alprazolam 0.5 mg tablet 0.5 mg PO DAILY 01/20/21 01/20/21 levothyroxine 150 mcg tablet 125 mcg PO DAILY 01/20/21 01/20/21 lisinopril 20 mg tablet 20 mg PO DAILY 01/20/21 01/20/21 metoprolol tartrate 25 mg tablet 25 mg PO BID 01/20/21 01/20/21 Allergies Allergy/AdvReac Type Severity Reaction Status Date / Time epinephrine Allergy Severe VOMITING, Verified 01/23/22 11:37 SYNCOPE Sulfa (Sulfonamide Allergy Mild TONGUE Verified 01/23/22 11:37 Antibiotics) SWELLS,CAN'T BREATH codeine Allergy Unknown NAUSEA,TING Verified 01/23/22 11:37 LING,HEADAC HE NSAIDS (Non-Steroidal Allergy Unknown Other Verified 01/23/22 11:37 Anti-Inflamma Review of Systems Review of Systems: CONSTITUTIONAL: Denies fever, chills, or sweats. EYES: Denies visual changes, redness, or discharge. ENT: Denies rhinorrhea, congestion, sore throat, or otalgia. CARDIOVASCULAR: See HPI RESPIRATORY: Denies cough or dyspnea. GASTROINTESTINAL: Denies abdominal pain, nausea, vomiting, or diarrhea. GENITOURINARY: Denies dysuria or hematuria. SKIN: Denies rash or itching. MUSCULOSKELETAL: See HPI NEUROLOGIC: Denies headache, numbness, or weakness. [facility] Past Medical History Medical History Anxiety HTN (hypertension) Hypothyroidism Psoriatic arthritis Surgical History Surgical History History of colonoscopy Social History Social History Smoking status: Former smoker Tobacco type: cigarettes Drinks per week: 2 Substance use: never Substance use type: does not use Spiritual care concerns: No Exam Narrative: APPEARANCE: Well appearing, no pain, no distress, well-nourished. HEAD: normocephalic, atraumatic. EYES: PERRLA/EOMI, conjunctivae clear. NOSE: Normal no drainage NECK: Supple. No adenopathy, no masses. RESPIRATORY: Airway patent, respirations nonlabored. Clear to auscultation bilaterally, no rales, rhonchi, wheezing. CARDIOVASCULAR: Regular rate and rhythm without murmurs rubs or gallops. ABDOMINAL: Soft, nontender, nondistended, normal bowel sounds MUSCULOSKELETAL: Palpable pulse on the left lower extremity. Patient does have popliteal tenderness and left-sided medial thigh tenderness on the affected leg. NEURO: Alert. Cranial nerves II through XII intact. Grossly intact SKIN: Warm, dry. Normal Color Course Course Emergency Course: Ultrasound showed extensive DVT of the left lower extremity. Patient reports a adverse reaction to IV contrast and patient declined the CT scan. VQ scan was ordered. Due to the extensive nature of the DVT and her pain along with her reports of intermittent syncope patient was started on heparin bolus and infusion and admitted. Case was discussed with the hospitalist and patient was stable at time of admission. VQ scan showed intermittent probability for PE Vital Signs Vital signs: Vital Signs Temperature 97.8 F 01/23/22 11:31 Pulse Rate 82 01/23/22 11:31 Respir
[2022-01-23 12:46] LABS: INR 1.1
[2022-01-23 12:47] LABS: Partial Thromboplastin Time 25.7 SECONDS (22.3-36.8)
[2022-01-23] MEDS: fentaNYL CITRATE INJ (*CRX) 100 MCG/2 ML VIAL 50 MCG IV PUSH ×2 (12:50→18:49)
[2022-01-23 14:47] LABS: Basophils Percent Auto 0.3 % (0.2-1.2); Eosinophils Absolute Auto 0.3 K/mm3 (0-0.3); Eosinophils Percent Auto 2.6 % (0-4.4); Hematocrit 30.8 % (37.0-47.0); Hemoglobin 10.1 g/dL (12.0-15.0); Immature Granulocyte Absolute 0.17 K/mm3 (0.00-0.031); Immature Granulocyte Percent A 1.4 % (0-0.5); Lymphocytes Absolute Auto 1.37 K/mm3 (0.9-3.2); Lymphocytes Percent Auto 10.9 % (18.3-44.2); Mean Corpuscular HGB Conc 32.8 g/dl (32-36); Mean Corpuscular Hemoglobin 32.1 pg (26-34); Mean Corpuscular Volume 97.8 fl (80-100); Mean Platelet Volume 9.5 fl (7.4-10.4); Monocytes Absolute Auto 1.6 K/mm3 (0.1-0.6); Monocytes Percent Auto 12.8 % (2.6-8.5); Platelet Count Result 343 k/mm3 (150-375); Red Blood Count 3.15 M/mm3 (4.2-5.4); Red Cell Distribution Width 13.8 % (11.5-14.5); White Blood Count 12.5 K/mm3 (4.5-10.0)
[2022-01-23 14:58] LABS: Anion Gap 8 mmol/L (8-16); Blood Urea Nitrogen 23 mg/dL (7-17); Calcium 8.7 mg/dL (8.4-10.2); Carbon Dioxide 30 mmol/L (22-30); Chloride 93 mmol/L (98-107); Estimated CRCL calculation 82 ml/min; Estimated Glomerular Filt Rate 51; Glucose 96 mg/dL (65-110); Potassium 3.7 mmol/L (3.4-5.0); Sodium 131 mmol/L (137-145)
[2022-01-23 16:46] LABS: Influenza A QL RT-PCR Negative (Negative); Influenza B QL RT-PCR Negative (Negative); SARS-CoV-2 RNA PCR Negative
[2022-01-23] MEDS: HEPARIN SOD/D5W 100 UNITS/ML 25,000 UNITS/250 ML BAG 15 UNITS IV CONT (16:55)
[2022-01-23] MEDS: HEPARIN SODIUM 5,000 UNITS/ML VIAL 8000 UNITS IV PUSH (16:56)
--- NOTE | 2022-01-23 17:14 | PC.NURSE ---
heart healthy dinner tray ordered
--- NOTE | 2022-01-23 18:33 | PC.NURSE ---
This patient, Kristel Conner, was admitted to IMU Room 206-02. Patient/family oriented to hospital policies and general routines including ID bracelet, bed and alarms, visiting hours, pain management, procedures, bathroom and other care routines, personal items, smoking policy, room service/diet, and visiting hours. Information on how to activate the Rapid Response Team has been discussed. Patient/Family are encouraged to report perceived risks to care and to ask questions if they do not understand what they are told or what they should do.
--- NOTE | 2022-01-23 20:00 | PM.IMHP ---
H&P: HPI History of Present Illness Date/Time: 01/23/22 20:00 Chief Complaint: Left leg swelling. Narrative: This is a pleasant 56-year-old female with psoriatic arthritis, hypertension, hypothyroidism, depression, and anxiety who presented to the emergency department for evaluation of left leg pain. She was seen emergency department on 01/11/2022 for evaluation of pain and swelling to the left lower leg and mild shortness of breath with pleuritic pain. Left lower extremity venous Doppler ultrasound showed a superficial venous thrombosis involving the distal greater saphenous vein with no other areas of thrombosis detected. Chest CTA was negative for pulmonary embolism. She was discharged home with instructions to trial NSAIDs and use warm compresses. She was also encouraged to elevate the affected extremity and wear compression stockings as needed. She continued to have increasing pain and swelling in that left leg and she was re-evaluated in the ER on 01/19/2022 for evaluation of near-syncope and syncope. She was diagnosed with postural dizziness with near-syncope and followed up with her primary care provider; she is now being evaluated for possible POTS and has an event monitor in place. She was not reimaged at that time. She returns to the ER today for worsening swelling and pain and continued near syncopal episodes. Repeat venous Doppler ultrasound showed an extensive DVT throughout the veins of the left lower limb beginning distally at the posterior tibial and peroneal veins at the calf and extending proximally to the left common femoral vein. Patient declined repeat CTA of the chest as she had flushing and nausea with the contrast media. V/Q scan was ordered and was read as intermediate probability. She is being admitted in this setting to IMU for close monitoring and she has been started on a heparin drip. She has no prior history of blood clots but reports that her mother has had several DVTs. She is not on hormones and has no known history of malignancy. No recent travel. Lifestyle is sedentary; she spends 8 to 11 hours a day at a desk while at work. Review of Systems Review of Systems: Twelve systems were reviewed. She has a history of falls, as some which seems to be related to near-syncope or syncopal episodes. Likely she has not sustained any injuries. She is currently wearing an event monitor as detailed above. She has not had chest pain. She does frequently get lightheaded and feelings of racing heart. Except as documented, all other systems were reviewed and are negative. [facility] Past Medical History Medical History (Updated 01/23/22 @ 23:51 by Sharyn Alatorre PA-C) Anxiety Chronic anemia Graves disease Status post radioactive iodine ablation. Hypertension Hypothyroidism Psoriatic arthritis Surgical History Surgical History (Updated 01/23/22 @ 23:46 by Sharyn Alatorre PA-C) History of colonoscopy History of laparoscopic cholecystectomy Family History Family History (Updated 01/23/22 @ 23:46 by Sharyn Alatorre PA-C) Mother Deep venous thrombosis Social History Social History (Updated 01/23/22 @ 23:47 by Sharyn Alatorre PA-C) Social History: Surrogate medical decision maker: Roddy Conner, spouse. Code status: Full code. Smoking status: Never smoker Tobacco type: cigarettes Second hand tobacco smoke exposure: No Alcohol intake: current Drinks per week: 5 Substance use: current Substance use type: marijuana Last use: 01/22/22 Lack of Transportation: No Lack of Food: Never True Current Housing: I Have Housing Concerned About Future Housing: No Difficulty Paying Gas/Electric Bills: No Difficulty Paying for Meds: No Currently Unemployed: No Education: High School Diploma/GED Difficulty w/ Childcare or Family Care: No Additional living arrangements comments: Lives in [place] with spouse. 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
[2022-01-23 23:10] LABS: Partial Thromboplastin Time 68.1 SECONDS (22.3-36.8)
[2022-01-23] MEDS: HEPARIN SODIUM 5,000 UNITS/ML VIAL 4000 UNITS IV PUSH (23:24)
[2022-01-24] VITALS (16 sets, daily range): BP systolic 103–130; BP diastolic 61–81; PULSE 72–95; RESP 12–20; TEMP 36.3–37.1; O2SAT 96–100
[2022-01-24] MEDS: METOPROLOL TARTRATE 25 MG TABLET PO ×3 (00:13→21:35)
[2022-01-24] MEDS: ALPRAZolam (*CRX) 0.5 MG TABLET PO ×2 (00:14→21:35)
[2022-01-24] MEDS: ACETAMINOPHEN 325 MG TABLET 650 MG PO ×3 (03:05→19:13)
[2022-01-24 03:10] LABS: Creatinine Urine 77.9 mg/dL
[2022-01-24 03:14] LABS: Sodium Urine Random 13 meq/L
[2022-01-24 05:49] LABS: Basophils Percent Auto 0.3 % (0.2-1.2); Eosinophils Absolute Auto 0.4 K/mm3 (0-0.3); Eosinophils Percent Auto 3.3 % (0-4.4); Hematocrit 28.7 % (37.0-47.0); Hemoglobin 9.6 g/dL (12.0-15.0); Immature Granulocyte Percent A 1.7 % (0-0.5); Lymphocytes Absolute Auto 2.24 K/mm3 (0.9-3.2); Lymphocytes Percent Auto 18.9 % (18.3-44.2); Mean Corpuscular HGB Conc 33.4 g/dl (32-36); Mean Corpuscular Hemoglobin 32.4 pg (26-34); Mean Platelet Volume 9.7 fl (7.4-10.4); Monocytes Absolute Auto 1.7 K/mm3 (0.1-0.6); Monocytes Percent Auto 14.6 % (2.6-8.5); Neutrophils Absolute Auto 7.3 K/mm3 (1.3-6.7); Neutrophils Percent Auto 61.2 % (45.5-73.1); Platelet Count Result 366 k/mm3 (150-375); Red Blood Count 2.96 M/mm3 (4.2-5.4); Red Cell Distribution Width 13.8 % (11.5-14.5); White Blood Count 11.9 K/mm3 (4.5-10.0)
[2022-01-24 05:56] LABS: Partial Thromboplastin Time 68.8 SECONDS (22.3-36.8)
[2022-01-24 06:02] LABS: Alanine Aminotransferase 30 U/L (6-35); Albumin Level 3.5 g/dL (3.5-5.1); Alkaline Phosphatase 95 U/L (38-126); Anion Gap 9 mmol/L (8-16); Aspartate Amino Transferase 38 U/L (14-36); Bilirubin,Total 0.6 mg/dL (0.2-1.3); Blood Urea Nitrogen 19 mg/dL (7-17); Calcium 8.3 mg/dL (8.4-10.2); Carbon Dioxide 27 mmol/L (22-30); Chloride 98 mmol/L (98-107); Estimated CRCL calculation 98 ml/min; Estimated Glomerular Filt Rate > 60; Glucose 113 mg/dL (65-110); Magnesium 2.2 mg/dL (1.6-2.3); Potassium 3.7 mmol/L (3.4-5.0); Sodium 134 mmol/L (137-145)
[2022-01-24] MEDS: HEPARIN SODIUM 5,000 UNITS/ML VIAL 4000 UNITS IV PUSH (06:23)
[2022-01-24] MEDS: LEVOTHYROXINE SODIUM 125 MCG TABLET PO (06:24)
[2022-01-24 06:50] LABS: Free T4 Free Thyroxine Reflex 1.63 ng/dL (0.78-2.19)
[2022-01-24 07:40] LABS: Total Triiodothyronine (T3) 0.55 NG/ML (0.97-1.69)
[2022-01-24] MEDS: HEPARIN SOD/D5W 100 UNITS/ML 25,000 UNITS/250 ML BAG 19 UNITS IV CONT (08:35)
[2022-01-24] MEDS: VENLAFAXINE HCL XR 37.5 MG CAP PO (08:40)
[2022-01-24] MEDS: lisinopriL 20 MG TABLET PO (08:40)
--- NOTE | 2022-01-24 09:56 | PM.IMPN ---
Progress Note: A&P Assessment and Plan (1) Left leg DVT: Code(s): I82.402 - Acute embolism and thrombosis of unspecified deep veins of left lower extremity Status: Acute Assessment and Plan: Venous Doppler: Extensive DVT throughout the veins of the left lower limb beginning distally at the posterior tibial and peroneal veins at the calf extending proximally to the left common femoral vein V/Q scan: Intermediate probability for PE Chest x-ray: No acute cardiopulmonary process Patient unable to have CTA conducted changed patient's anticoagulant to Eliquis 10 b.i.d. Bedrest Fall precautions PT/OT consulted Analgesics given for pain. (2) Near syncope: Code(s): R55 - Syncope and collapse Status: Acute Assessment and Plan: Echocardiogram ordered Ultrasound carotid bilateral: Less than 50% stenosis bilaterally Orthostatics q.d. (3) Renal insufficiency: Code(s): N28.9 - Disorder of kidney and ureter, unspecified Status: Acute Assessment and Plan: Renal function elevated but stable on admission Renal ultrasound: Normal kidneys without hydronephrosis or stones. BUN and creatinine levels are trending down (4) Hyponatremia: Code(s): E87.1 - Hypo-osmolality and hyponatremia Status: Acute Assessment and Plan: Patient has been hyponatremic in the past. TSH, urine and serum osmolalities, urine creatinine and urine sodium have been ordered. FENA is 0.1% (5) Hypothyroidism: Code(s): E03.9 - Hypothyroidism, unspecified Status: Acute Assessment and Plan: Continue Synthroid (6) Hypertension: Code(s): I10 - Essential (primary) hypertension Status: Acute Assessment and Plan: Continue home meds Time Spent With Patient Time with patient: Greater than 35 minutes Subjective Date/time seen: 01/24/22 09:56 Interval history: 57-year-old female with a history of hypertension and hypothyroidism. Patient diagnosed with left lower extremity DVT. Patient is still having pain behind her knee associated with the DVT. Patient states that she has been feeling faint more frequently and this is been going on for couple months. Patient is also receiving workup for syncope. 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 Patient denies shortness of breath, chest pain, fever, nausea, vomiting, cough and urinary symptoms. Review of Systems Review of Systems: All systems reviewed & are unremarkable except as noted in HPI and below Exam Narrative: GENERAL: Comfortable, no acute distress, obese HENMT: moist mucous membranes EYES: EOM intact b/l NECK: no lymphadenopathy RESPIRATORY: clear to auscultation CARDIO: RRR GI: soft, nontender, bowel sounds present SKIN: no rashes EXTREMITIES: Left lower extremity edema, mild bruising behind/to the side of left knee, no redness or pallor posterior tibial and dorsalis pedis pulses +2 bilaterally Objective Data Vital Signs Vital Signs: Vital Signs - 24 hr 01/23/22 11:31 01/23/22 12:45 01/23/22 17:36 Temperature 97.8 F Pulse Rate 82 82 82 Respiratory Rate 18 18 18 Blood Pressure 85/54 L 120/63 127/72 Pulse Oximetry 98 99 99 Oxygen Delivery Room Air 01/23/22 20:19 01/23/22 20:00 01/23/22 20:00 Temperature 98.8 F Pulse Rate 100 100 96 Respiratory Rate 20 20 Blood Pressure 146/78 H Pulse Oximetry 97 97 Oxygen Delivery Room Air 01/23/22 22:00 01/23/22 23:45 01/24/22 00:13 Temperature 98.5 F Pulse Rate 90 84 90 Respiratory Rate 19 Blood Pressure 128/71 Pulse Oximetry 96 Oxygen Delivery 01/24/22 00:00 01/24/22 00:00 01/24/22 02:00 Temperature Pulse Rate 91 91 78 Respiratory Rate 18 Blood Pressure Pulse Oximetry 97 Oxygen Delivery Room Air 01/24/22 04:00 01/24/22 04:00 01/24/22 05:14 Temperature 98.5 F Pulse Rate 87 75 Respiratory Rate 20 Blood Pressure 130/74 Pulse Oximetry 100 Oxygen Delivery Room Air 01/24
[2022-01-24] MEDS: PANTOPRAZOLE 40 MG TABLET PO ×2 (11:20→21:35)
[2022-01-24] MEDS: ONDANSETRON INJ 4 MG/2 ML VIAL IV PUSH (12:29)
[2022-01-24 12:38] LABS: Partial Thromboplastin Time 99.3 SECONDS (22.3-36.8)
[2022-01-24] MEDS: PERFLUTREN LIPID MICROSPHERES 1.5 ML VIAL DILUTED TO 10 ML TOTAL VOLUME IV PUSH (14:30)
[2022-01-24] MEDS: APIXABAN 5 MG TABLET 10 MG PO (21:36)
--- NOTE | 2022-01-24 23:55 | ECHO_ITS ---
Patient Info Name: Kristel Conner Age: 56 years : 1965 Gender: Female Ht: 70 in Wt: 333 lbs BSA: 2.81 m2 HR: 87 bpm BP: 130 / 74 mmHg Heart Rhythm: Sinus Rhythm Technical Quality: Fair Exam Date: 01/24/2022 1:31 PM Exam Location: [facility] Pulmonary Patient Status: Inpatient Admit Date: 01/23/2022 Staff Ordering Physician: Sharyn Alatorre PA-C Mangle Operator Garments: Frida Rushing RDCS Attending Provider: Marion Bustos MD Referring Physician: Landry SALAS; Exam Type: CA echo dop bubble study w con Study Info Indications - near syncope R00.0 - Tachycardia, unspecified R55 - Syncope and collapse - PE, Complete two-dimentional, color flow and Doppler transthoracic echocardiogram is performed with agitated saline and with contrast to opacify the left ventricle and to improve the delineation of the left ventricle endocardial borders. Contrast/Agitated Saline Contrast/Ag. Saline: Definity Amount: 3.00 ml Administered By: Allegra Bustos RDCS Existing IV Access: Yes IV Access Condition: patent with no signs of infiltration Contrast/Ag. Saline: Agitated Saline Amount: 20.00 ml Administered By: Allegra Bustos RDCS Existing IV Access: Yes IV Access Condition: patent with no signs of infiltration Summary 1. Left ventricular systolic function is normal, estimated at 65-70%. 2. Right ventricular systolic function is normal. 3. Intact interatrial septum visualized by color flow and agitated saline imaging. Negative Bubble study. 4. No significant valvular disease. Left Ventricle Left ventricular chamber dimension is normal. Left ventricular systolic function is normal, estimated at 65-70%. There is no increased left ventricular wall thickness. The left ventricular diastolic function is normal. Right Ventricle Right ventricular chamber dimension is normal. Right ventricular systolic function is normal. Left Atria Left atrial chamber dimension is normal. Right Atria Right atrial chamber dimension is normal. Atrial Septum Intact interatrial septum visualized by color flow and agitated saline imaging. Negative Bubble study. Aortic Valve The aortic valve is probable trileaflet. There is no aortic valve stenosis. There is no aortic valve regurgitation. Pulmonic Valve The pulmonic valve is not well visualized. Mitral Valve The mitral valve has normal leaflets. There is no mitral valve stenosis. There is trace mitral valve regurgitation. Tricuspid Valve The tricuspid valve leaflets are normal. There is trace tricuspid valve regurgitation. Pericardium/Pleural There is no pericardial effusion. Aorta The aortic root size at the sinus of Valsalva is normal. Left Ventricular Outflow Tract Name Value Normal LVOT 2D LVOT Diameter 2.1 cm LVOT Doppler LVOT Peak Gradient 3 mmHg LVOT Mean Gradient 2 mmHg LVOT VTI 13 cm LVOT VTI/AV VTI Ratio 0
[2022-01-25] VITALS (12 sets, daily range): BP systolic 108–127; BP diastolic 48–64; PULSE 74–100; RESP 12–18; TEMP 36.1–37.1; O2SAT 95–98
[2022-01-25] MEDS: ACETAMINOPHEN 325 MG TABLET 650 MG PO ×2 (04:31→11:29)
[2022-01-25 04:33] LABS: Hematocrit 29.1 % (37.0-47.0); Hemoglobin 9.4 g/dL (12.0-15.0); Mean Corpuscular HGB Conc 32.3 g/dl (32-36); Mean Corpuscular Hemoglobin 31.6 pg (26-34); Mean Platelet Volume 9.6 fl (7.4-10.4); Platelet Count Result 379 k/mm3 (150-375); Red Blood Count 2.97 M/mm3 (4.2-5.4); White Blood Count 8.5 K/mm3 (4.5-10.0)
[2022-01-25] MEDS: LEVOTHYROXINE SODIUM 125 MCG TABLET PO (04:38)
[2022-01-25 04:54] LABS: Alanine Aminotransferase 29 U/L (6-35); Albumin Level 3.5 g/dL (3.5-5.1); Alkaline Phosphatase 86 U/L (38-126); Anion Gap 6 mmol/L (8-16); Aspartate Amino Transferase 39 U/L (14-36); Bilirubin,Total 0.4 mg/dL (0.2-1.3); Blood Urea Nitrogen 15 mg/dL (7-17); Calcium 8.3 mg/dL (8.4-10.2); Carbon Dioxide 30 mmol/L (22-30); Chloride 97 mmol/L (98-107); Estimated CRCL calculation 98 ml/min; Estimated Glomerular Filt Rate > 60; Glucose 106 mg/dL (65-110); Potassium 3.7 mmol/L (3.4-5.0); Sodium 133 mmol/L (137-145)
[2022-01-25] MEDS: METOPROLOL TARTRATE 25 MG TABLET PO ×2 (08:32→21:00)
[2022-01-25] MEDS: APIXABAN 5 MG TABLET 10 MG PO ×2 (08:32→22:20)
[2022-01-25] MEDS: lisinopriL 20 MG TABLET PO (08:32)
[2022-01-25] MEDS: VENLAFAXINE HCL XR 37.5 MG CAP PO (08:32)
--- NOTE | 2022-01-25 10:45 | PM.IMPN ---
Progress Note: A&P Assessment and Plan (1) Left leg DVT: Qualifiers: Affected thrombotic vein of extremity: unspecified lower extremity proximal vein Code(s): I82.402 - Acute embolism and thrombosis of unspecified deep veins of left lower extremity Status: Acute Assessment and Plan: Patient presented to the emergency with complaints of left lower extremity pain and swelling. Venous Doppler: Extensive DVT throughout the veins of the left lower limb beginning distally at the posterior tibial and peroneal veins at the calf extending proximally to the left common femoral vein V/Q scan: Intermediate probability for PE. Patient unable to have CTA conducted due to allergy Chest x-ray: No acute cardiopulmonary process Started on heparin drip on admission transitioned to Eliquis 10 mg b.i.d. x7 days then transition to 5 mg b.i.d. started 01/24 2100 Patient has been on anticoagulation since 01/23 and will begin to mobilize Fall precautions PT/OT consulted for safety evaluation Analgesics given for pain. Ensure cancer screening is up-to-date. Mammogram 02/08/2021 birads 1. Colonoscopy 02/02/2021 with evidence of diverticulosis but no polyps. Patient does have family member with prior history of DVT. Will check hypercoagulation panel - protein C & S, antithrombin III, factor V leiden, and prothrombin gene analysis). (2) Near syncope: Code(s): R55 - Syncope and collapse Status: Acute Assessment and Plan: Echocardiogram with normal LV systolic and diastolic function, EF 65%, negative bubble study. Ultrasound carotid bilateral: Less than 50% stenosis bilaterally Orthostatics q.d. - pending Outpatient POTS work up in process. Fall precautions. (3) Renal insufficiency: Code(s): N28.9 - Disorder of kidney and ureter, unspecified Status: Acute Assessment and Plan: Renal function- BUN 23, creatinine 1.1. GFR 51; likely secondary to NSAID use. Renal ultrasound: Normal kidneys without hydronephrosis or stones. BUN and creatinine within normal limits (4) Hyponatremia: Code(s): E87.1 - Hypo-osmolality and hyponatremia Status: Acute Assessment and Plan: Patient has been hyponatremic in the past. TSH, urine and serum osmolalities, urine creatinine and urine sodium have been ordered. FENA is 0.1% Sodium 133 currently. Neuro intact. (5) Hypothyroidism: Qualifiers: Hypothyroidism type: other Qualified Code(s): E03.8 - Other specified hypothyroidism Code(s): E03.9 - Hypothyroidism, unspecified Status: Chronic Assessment and Plan: History of Graves disease status post radioactive iodine ablation. TSH 7, free T4 within limits. Continue Synthroid at current dose (6) Hypertension: Qualifiers: Hypertension type: primary hypertension Qualified Code(s): I10 - Essential (primary) hypertension Code(s): I10 - Essential (primary) hypertension Status: Chronic Assessment and Plan: Chronic, BP 109/48. Continue home meds with hold parameters (7) Anxiety: Code(s): F41.9 - Anxiety disorder, unspecified Status: Chronic Assessment and Plan: chronic, continue venlafaxine and alprazolam at HS (8) Psoriatic arthritis: Code(s): L40.50 - Arthropathic psoriasis, unspecified Status: Chronic Assessment and Plan: Chronic, psoriasis patch noted left plantar surface. Start Eucerin cream b.i.d. Plan Code status: full code Disposition: Inpatient, Med/surg with telemetry Discharge plan: home when medically stable. Time Spent With Patient Time with patient: 25 - 35 minutes Subjective Date/time seen: 01/25/22 10:45 Reports persistent pain and swelling to left leg. She has tried to elevate her leg but has intermittent tingling to her feet. No chest pain, SOB or palpitations. She has not had a BM since prior to admission. No epistaxis, hemoptysis or hemateme
[2022-01-25] MEDS: SENNA/DOCUSATE SODIUM TABLET 1 TAB PO (13:11)
[2022-01-25] MEDS: EUCERIN CREAM 120 GM JAR 1 APPLIC TOPICAL (13:11)
[2022-01-25] MEDS: HYDROcodone/acetaminophen (*CRX) 5-325 MG TABLET 1 TAB PO ×2 (17:17→22:19)
[2022-01-25] MEDS: PANTOPRAZOLE 40 MG TABLET PO (20:51)
[2022-01-25] MEDS: ALPRAZolam (*CRX) 0.5 MG TABLET PO (22:20)
--- NOTE | 2022-01-25 23:20 | PC.NURSE ---
This patient, Kristel Conner, was transferred to [[id number]] on 01/25/22 at 2320. Personal belongings sent with patient. Report given to [Pedro]. Appropriate documentation sent with patient.
[2022-01-26 06:42] LABS: Hematocrit 29.6 % (37.0-47.0); Hemoglobin 9.4 g/dL (12.0-15.0); Mean Corpuscular HGB Conc 31.8 g/dl (32-36); Mean Corpuscular Hemoglobin 32.4 pg (26-34); Mean Corpuscular Volume 102.1 fl (80-100); Mean Platelet Volume 10.1 fl (7.4-10.4); Platelet Count Result 366 k/mm3 (150-375)
[2022-01-26] MEDS: LEVOTHYROXINE SODIUM 125 MCG TABLET PO (06:46)
[2022-01-26 06:56] LABS: Anion Gap 4 mmol/L (8-16); Blood Urea Nitrogen 12 mg/dL (7-17); Calcium 8.1 mg/dL (8.4-10.2); Carbon Dioxide 31 mmol/L (22-30); Chloride 95 mmol/L (98-107); Estimated CRCL calculation 110 ml/min; Estimated Glomerular Filt Rate > 60; Glucose 100 mg/dL (65-110); Potassium 3.8 mmol/L (3.4-5.0); Sodium 130 mmol/L (137-145)
[2022-01-26 07:03] VITALS: BP 129/64; PULSE 86; RESP 16; TEMP 35.8; O2SAT 94
[2022-01-26 07:57] LABS: Iron 25 ug/dL (37-170)
[2022-01-26 08:06] LABS: Percent Iron Saturation 14 % (20-50)
[2022-01-26] MEDS: HYDROcodone/acetaminophen (*CRX) 5-325 MG TABLET 1 TAB PO (08:10)
[2022-01-26] MEDS: APIXABAN 5 MG TABLET 10 MG PO (08:13)
[2022-01-26] MEDS: SENNA/DOCUSATE SODIUM TABLET 1 TAB PO (08:13)
[2022-01-26 08:14] VITALS: PULSE 86
[2022-01-26] MEDS: METOPROLOL TARTRATE 25 MG TABLET PO (08:14)
[2022-01-26] MEDS: lisinopriL 20 MG TABLET PO (08:14)
[2022-01-26] MEDS: PANTOPRAZOLE 40 MG TABLET PO (08:14)
[2022-01-26] MEDS: EUCERIN CREAM 120 GM JAR 1 APPLIC TOPICAL (08:14)
[2022-01-26] MEDS: VENLAFAXINE HCL XR 37.5 MG CAP PO (08:14)
[2022-01-26 12:43] LABS: IFOB Positive Control Positive; Immunochemical Fecal Occult Bl Negative (N)
--- NOTE | 2022-01-26 13:08 | PM.DS ---
DS: Admitting Diagnosis Discharge Date 01/26/2022 1308 Admitting Diagnosis Left leg DVT Near syncope Chronic anemia History of falling Renal insufficiency Hyponatremia Hypothyroidism, chronic Psoriatic arthritis, chronic Anxiety, chronic Hypertension, chronic DS: Discharge Diagnosis Discharge Diagnosis (1) Left leg DVT: Qualifiers: Affected thrombotic vein of extremity: unspecified lower extremity proximal vein Code(s): I82.402 - Acute embolism and thrombosis of unspecified deep veins of left lower extremity Status: Acute Assessment and Plan: Patient presented to the emergency with complaints of left lower extremity pain and swelling. Venous Doppler: Extensive DVT throughout the veins of the left lower limb beginning distally at the posterior tibial and peroneal veins at the calf extending proximally to the left common femoral vein V/Q scan: Intermediate probability for PE. Patient unable to have CTA conducted due to allergy and did not want to undergo premedication for contrast exposure. Chest x-ray: No acute cardiopulmonary process Treated with heparin drip on admission transitioned to Eliquis 10 mg b.i.d. x7 days started 01/24 2100 [place] PO analgesics PRN for pain Fall precautions. PT/OT consulted for safety evaluation cancer screening is up-to-date. Mammogram 02/08/2021 birads 1. Colonoscopy 02/02/2021 with evidence of diverticulosis but no polyps. Patient does have family member with prior history of DVT. hypercoagulation panel pending - protein C & S, antithrombin III, factor V leiden, and prothrombin gene analysis). (2) Near syncope: Code(s): R55 - Syncope and collapse Status: Acute Assessment and Plan: Echocardiogram with normal LV systolic and diastolic function, EF 65%, negative bubble study. Ultrasound carotid bilateral: Less than 50% stenosis bilaterally Ambulating without dizziness. Outpatient POTS work up in process. Fall precautions. (3) Renal insufficiency: Code(s): N28.9 - Disorder of kidney and ureter, unspecified Status: Acute Assessment and Plan: Renal function- BUN 23, creatinine 1.1. GFR 51; likely secondary to NSAID use. Renal ultrasound: Normal kidneys without hydronephrosis or stones. BUN and creatinine within normal limits (4) Hyponatremia: Code(s): E87.1 - Hypo-osmolality and hyponatremia Status: Acute Assessment and Plan: Patient has been hyponatremic in the past. TSH, urine and serum osmolalities, urine creatinine and urine sodium have been ordered. FENA is 0.1% Sodium 130. Neuro intact. Patient is drinking plenty of fluids to assist with constipation (5) Hypothyroidism: Qualifiers: Hypothyroidism type: other Qualified Code(s): E03.8 - Other specified hypothyroidism Code(s): E03.9 - Hypothyroidism, unspecified Status: Chronic Assessment and Plan: History of Graves disease status post radioactive iodine ablation. TSH 7, free T4 within limits. Continue Synthroid at current dose (6) Hypertension: Qualifiers: Hypertension type: primary hypertension Qualified Code(s): I10 - Essential (primary) hypertension Code(s): I10 - Essential (primary) hypertension Status: Chronic Assessment and Plan: Chronic, BP 109/48. Continue home meds with hold parameters (7) Anxiety: Code(s): F41.9 - Anxiety disorder, unspecified Status: Chronic Assessment and Plan: chronic, continue venlafaxine and alprazolam at HS (8) Psoriatic arthritis: Code(s): L40.50 - Arthropathic psoriasis, unspecified Status: Chronic Assessment and Plan: Chronic, psoriasis patch noted left plantar surface. treated with Eucerin cream b.i.d. DS: Summary Hospital Course Reason for hospitalization: left leg swelling and pain Hospital Course: Kristel Conner is a 56-year-old female with psoriatic arthritis, hyp
[2022-01-27 23:02] LABS: Osmolality, Urine 327 mOsm/kg (50-1200)
[2022-01-28 20:44] LABS: Antithrombin III Activity 71 % normal (80-135)
[2022-02-02 19:27] LABS: Factor V (Leiden) Mutation POSITIVE
== END 2022-01-26 14:00 | disposition home or self-care (01) | DRG 300 ==
LOC: ANHED 14:36 → ANHIMU 17:25 → ANH3MEDSUR 01-26 09:57 → ANHIMU 01-27 12:27
PROVIDERS: Internal Medicine Critical Care Medicine; Physician Assistant; Admitting Provider Family Medicine; Emergency Provider Emergency Medicine; PCP Physician Assistant; Visit Provider Nurse Practitioner Family
DX: I82.412 Acute embolism and thrombosis of left femoral vein (principal); E87.1 Hypo-osmolality and hyponatremia; Z68.42 Body mass index [BMI] 45.0-49.9, adult; I82.442 Acute embolism and thrombosis of left tibial vein; I82.452 Acute embolism and thrombosis of left peroneal vein; D64.9 Anemia, unspecified; E66.9 Obesity, unspecified; E03.9 Hypothyroidism, unspecified; E05.00 Thyrotoxicosis with diffuse goiter without thyrotoxic crisis or storm; F41.9 Anxiety disorder, unspecified; F32.A Depression, unspecified; I10 Essential (primary) hypertension; K59.00 Constipation, unspecified; L40.50 Arthropathic psoriasis, unspecified; N28.9 Disorder of kidney and ureter, unspecified; R55 Syncope and collapse; Z87.891 Personal history of nicotine dependence; Z90.49 Acquired absence of other specified parts of digestive tract; Z20.822 Contact with and (suspected) exposure to COVID-19; Z91.81 History of falling
CPT/HCPCS: 36415; 71046; 76775; 78580; 80048; 80053; 81240; 81241; 82274; 82570; 83540; 83550; 83735; 83930; 83935; 84300; 84439; 84443; 84480; 85025; 85027; 85300; 85303; 85306; 85610; 85730; 87636; 93880; 93971; 96365; 96366; 96374; 96375; 96376; 97161; 97165; 99285; A9270; A9540; C8929; G0378; J1644; J2405; J3010; Q9957

== ENCOUNTER 2022-02-11 11:41 | Outpatient (CLI) | payer OTHER, SELFPAY ==
[2022-02-11 11:58] LABS: Basophils Percent Auto 0.2 % (0.2-1.2); Eosinophils Absolute Auto 0.1 K/mm3 (0-0.3); Eosinophils Percent Auto 2.3 % (0-4.4); Hematocrit 31.8 % (37.0-47.0); Hemoglobin 10.1 g/dL (12.0-15.0); Immature Granulocyte Absolute 0.01 K/mm3 (0.00-0.031); Immature Granulocyte Percent A 0.2 % (0-0.5); Lymphocytes Absolute Auto 1.55 K/mm3 (0.9-3.2); Mean Corpuscular HGB Conc 31.8 g/dl (32-36); Mean Corpuscular Hemoglobin 30.6 pg (26-34); Mean Corpuscular Volume 96.4 fl (80-100); Mean Platelet Volume 9.4 fl (7.4-10.4); Monocytes Absolute Auto 0.5 K/mm3 (0.1-0.6); Monocytes Percent Auto 10.9 % (2.6-8.5); Neutrophils Absolute Auto 2.5 K/mm3 (1.3-6.7); Neutrophils Percent Auto 53.4 % (45.5-73.1); Platelet Count Result 310 k/mm3 (150-375); Red Cell Distribution Width 14.6 % (11.5-14.5); White Blood Count 4.7 K/mm3 (4.5-10.0)
[2022-02-11 12:10] LABS: Alanine Aminotransferase 24 U/L (6-35); Albumin Level 4.2 g/dL (3.5-5.1); Alkaline Phosphatase 82 U/L (38-126); Anion Gap 8 mmol/L (8-16); Aspartate Amino Transferase 29 U/L (14-36); Bilirubin,Total 0.6 mg/dL (0.2-1.3); Blood Urea Nitrogen 10 mg/dL (7-17); Calcium 8.6 mg/dL (8.4-10.2); Carbon Dioxide 26 mmol/L (22-30); Chloride 106 mmol/L (98-107); Estimated Glomerular Filt Rate > 60; Glucose 115 mg/dL (65-110); Potassium 4.4 mmol/L (3.4-5.0); Sodium 140 mmol/L (137-145)
[2022-02-11 12:40] LABS: Thyroid Stimulating Hormone 0.791 uIU/mL (0.465-4.680)
[2022-02-11 13:18] LABS: Free T4 Free Thyroxine 1.85 ng/mL (0.78-2.19)
== END 2022-02-11 11:42 | disposition home or self-care (01) ==
LOC: ANHLAB 11:44
PROVIDERS: PCP Physician Assistant; Visit Provider Physician Assistant
DX: E03.9 Hypothyroidism, unspecified (principal); Z79.899 Other long term (current) drug therapy
CPT/HCPCS: 36415; 80053; 84439; 84443; 85025

== ENCOUNTER 2022-03-06 14:46 | Outpatient (CLI) | payer OTHER, SELFPAY ==
--- NOTE | ~2022-03-06 | MR_ITS ---
EXAMINATION: MR brain/brain stem wo/w con DATE: 03/06/2022 15:46 INDICATION: Near syncope. Migraine headache. TECHNIQUE: Magnetic resonance imaging (MRI) of the brain and brainstem was performed without and with 20 mL MultiHance intravenous contrast. COMPARISON: Brain MRI 05/24/2011, head CT 02/04/2007 FINDINGS: There are scattered areas of nonspecific increased T2-weighted signal intensity in the cere bral white matter, which is within normal limits for the patient's age. The ventricles are normal in size. There is mild mucosal thickening in the paranasal sinuses. The orbits are normal. The mastoid a ir cells are normal. IMPRESSION: 1. Normal aging brain. Reviewed, dictated and finalized at location A. ANT POWDER SUPERVISOR IMPRESSION: 1. Normal aging brain.
== END 2022-03-06 14:47 | disposition home or self-care (01) ==
PROVIDERS: PCP Physician Assistant; Visit Provider Physician Assistant
DX: R55 Syncope and collapse (principal)
CPT/HCPCS: 70553; A9577

== ENCOUNTER 2022-03-15 14:26 | Outpatient (CLI) | payer OTHER, SELFPAY ==
--- NOTE | ~2022-03-15 | US_ITS ---
EXAMINATION: US venous doppler [facility] DATE: 03/15/2022 15:14 INDICATION: Lower extremity pain and swelling. TECHNIQUE: Grayscale images without and with compression and Doppler images of the left lower extremi ty veins were obtained. COMPARISON: None FINDINGS: The left common femoral vein, profunda femoral vein, femoral vein, popliteal vein, posterior tibial v eins, gastrocnemius vein, and greater saphenous vein are patent. IMPRESSION: Peroneal veins not visualized, otherwise patent left lower extremity veins. No evidence of deep venou s thrombosis. Reviewed, dictated and finalized at location K. WORKING [employer]T [employer]ANDER IMPRESSION: Peroneal veins not visualized, otherwise patent left lower extremity veins. No evidence of deep venous thrombosis.
== END 2022-03-15 14:27 | disposition home or self-care (01) ==
PROVIDERS: PCP Physician Assistant; Visit Provider Physician Assistant
DX: I82.402 Acute embolism and thrombosis of unspecified deep veins of left lower extremity (principal)
CPT/HCPCS: 93971

== ENCOUNTER 2022-04-07 09:00 | Outpatient (RCR) | payer OTHER, SELFPAY | END 2022-06-21 12:42 | disposition home or self-care (01) | LOC: ANHPT 09:00 | PROVIDERS: PCP Physician Assistant; Visit Provider Physician Assistant | DX: I89.0 Lymphedema, not elsewhere classified (principal) | CPT/HCPCS: 99199 ==

== ENCOUNTER 2022-09-07 08:59 | Outpatient (CLI) | payer OTHER, SELFPAY ==
[2022-09-07 09:32] LABS: Basophils Percent Auto 0.4 % (0.2-1.2); Eosinophils Absolute Auto 0.2 K/mm3 (0-0.3); Eosinophils Percent Auto 3.3 % (0-4.4); Hematocrit 36.3 % (37.0-47.0); Hemoglobin 11.8 g/dL (12.0-15.0); Immature Granulocyte Absolute 0.01 K/mm3 (0.00-0.031); Immature Granulocyte Percent A 0.2 % (0-0.5); Lymphocytes Absolute Auto 1.45 K/mm3 (0.9-3.2); Lymphocytes Percent Auto 32.2 % (18.3-44.2); Mean Corpuscular HGB Conc 32.5 g/dl (32-36); Mean Corpuscular Hemoglobin 31.1 pg (26-34); Mean Corpuscular Volume 95.8 fl (80-100); Mean Platelet Volume 9.5 fl (7.4-10.4); Monocytes Absolute Auto 0.6 K/mm3 (0.1-0.6); Monocytes Percent Auto 12.2 % (2.6-8.5); Neutrophils Absolute Auto 2.3 K/mm3 (1.3-6.7); Neutrophils Percent Auto 51.7 % (45.5-73.1); Platelet Count Result 219 k/mm3 (150-375); Red Blood Count 3.79 M/mm3 (4.2-5.4); Red Cell Distribution Width 14.3 % (11.5-14.5); White Blood Count 4.5 K/mm3 (4.5-10.0)
[2022-09-07 09:43] LABS: Anion Gap 8 mmol/L (8-16); Blood Urea Nitrogen 17 mg/dL (7-17); Calcium 9.4 mg/dL (8.4-10.2); Carbon Dioxide 26 mmol/L (22-30); Chloride 102 mmol/L (98-107); Cholesterol 235 mg/dL (0-200); Estimated Glomerular Filt Rate 51; Glucose 99 mg/dL (65-110); HDL Direct 58 mg/dL; Potassium 4.7 mmol/L (3.4-5.0); Sodium 136 mmol/L (137-145); Triglycerides 105 mg/dL (<150)
[2022-09-07 09:55] LABS: LDL Cholesterol Direct 145 mg/dL
[2022-09-07 10:14] LABS: Thyroid Stimulating Hormone 0.282 uIU/mL (0.465-4.680)
[2022-09-07 10:33] LABS: Iron 66 ug/dL (37-170)
[2022-09-07 10:35] LABS: Hemoglobin A1C 5.8 % (<5.7)
[2022-09-07 10:44] LABS: Percent Iron Saturation 20 % (20-50)
[2022-09-07 10:49] LABS: Free T4 Free Thyroxine 1.93 ng/mL (0.78-2.19)
[2022-09-13 13:55] LABS: Thyroid Stimulating Immunoglob 104 % baseline (<140)
[2022-09-14 03:53] LABS: Thyroid Peroxidase Antibodies 1 IU/mL (<9)
== END 2022-09-07 09:00 | disposition home or self-care (01) ==
LOC: ANHLAB 09:01
PROVIDERS: PCP Nurse Practitioner Family; Visit Provider Internal Medicine
DX: D64.9 Anemia, unspecified (principal); I10 Essential (primary) hypertension; R73.09 Other abnormal glucose; Z13.6 Encounter for screening for cardiovascular disorders; E66.9 Obesity, unspecified; E03.9 Hypothyroidism, unspecified
CPT/HCPCS: 36415; 80048; 80061; 82728; 83036; 83540; 83550; 84439; 84443; 84445; 85025; 86376

== ENCOUNTER 2023-03-12 13:32 | Outpatient (CLI) | payer OTHER, SELFPAY ==
[2023-03-12 15:39] LABS: Free T4 Free Thyroxine 1.74 ng/mL (0.78-2.19)
== END 2023-03-12 13:33 | disposition home or self-care (01) ==
PROVIDERS: PCP Nurse Practitioner Family; Visit Provider Internal Medicine
DX: E03.8 Other specified hypothyroidism (principal)
CPT/HCPCS: 36415; 84439; 84443

== ENCOUNTER 2023-05-29 14:30 | Outpatient (RCR) | payer OTHER, SELFPAY ==
--- NOTE | 2023-04-11 16:21 | OPREHPOC ---
Outpatient Therapy Plan of Care This is a Multidisciplinary Plan of Care that may contain components documented by all disciplines (PT, OT, and ST.) PT Problem 1 PT Problem #1 Knowledge Deficit PT Goal 1 Goal 1* indep with HEP 2* education for compression garments and wearing schedule. PT Problem 2 PT Problem #2 Pain PT Goal 1 Goal 1* pt report pain rating at worst of 7/10 L LE 2* measure pt and work with pt to determine most appropriate compression garment, to assist to decrease L LE pain PT Problem 3 PT Problem #3 Impaired Strength PT Goal 1 Goal increase strength of LE's, to improve mobility skills: 1* pt perform mat exercises on R and L LE x 20 reps PT Problem 4 PT Problem #4 Impaired Functional Mobil PT Goal 1 Goal improve gait and balance skills: 1* 5 reps sit/stand time of 16 seconds with use of 1 UE and control motions 2* 2 minute walking test distance of 460' 3* no pain increase reported with 2 minute walking test
--- NOTE | 2023-04-11 16:22 | PTOPEVAL1 ---
Assessment and note entered by Татьяна Nobles, PT Evaluation Information Assessment Status Evaluation Diagnosis pain in joints/ legs, weakness Onset Jan 2022 Subjective Information hospitalized Jan 2022 due to blood clots in L LE and off work ~ 2 months due to pain/swelling; have had pain in L leg and numbness in toes; swelling in L leg; saw vascular surgeon -- was only told to wear compression socks, did not do any testing; have 15 -20 mmHg knee high socks; due to pain in leg, is not able to walk and fitness exercises, prior to DVTs, was walking up to 5 miles/day; history of L ankle pain and swelling- psoriatic arthritis and fell Nov 2021, due to POTS, carrying groceries; 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, 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, gets up from chair only to go to bathroom; at home--pain limits mobility and walking, home tasks; Reported Pain Level Pain Score Self Report Additional Pain Score Comments pain range in the past week 3-10/10; heavy entire leg, ache in leg; burning in feet; stabbing, excruciating pain; most pain ankle and toes increase pain: sit to stand, moving leg when on back in bed- most pain, knee hurts; decrease pain: change positions, heating pad not taking meds regularly, tylenol PRN; sleeping is disrupted due to overall body pain and joint pain; have pain in hips swelling of legs comes and goes; Assessment PT Clinical Summary Kristel has the diagnosis of joint pain and weakness. She reports most issues with pain in her legs and problems with walking, onset after having blood clots in L leg and swelling in L leg. 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 With the evaluation: most
--- NOTE | 2023-05-22 13:02 | PCPTNOTE ---
Pt canceled today due to dizziness.
--- NOTE | 2023-05-29 15:06 | PTOPDC ---
Assessment and note entered by Татьяна Nobles, PT Discharge Information Assessment Status Discharge Diagnosis pain in joints/ legs, weakness Onset Jan 2022 Subjective Information hospitalized Jan 2022 due to blood clots in L LE and off work ~ 2 months due to pain/swelling; have had pain in L leg and numbness in toes; swelling in L leg; saw vascular surgeon -- was only told to wear compression socks, did not do any testing; have 15 -20 mmHg knee high socks; due to pain in leg, is not able to walk and fitness exercises, prior to DVTs, was walking up to 5 miles/day; history of L ankle pain and swelling- psoriatic arthritis and fell Nov 2021, due to POTS, carrying groceries; 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 She called and canceled 1 appointment. Compared to the initial evaluation: pain from 3-10/10 to 2-7/10 in L leg; 2 minute walking test distance from 410' to 450', with reported increase in L LE pain; increase strength with sit/stand without use of UE's and time for 5 reps increase 1 second; increase strength of LE's with mat exercises. Education completed for HEP. The goals were partially met. Discharge PT services. She is to continue to increase activity and LE strength as tolerated. Plan of Care PT Services Indicated No
== END 2023-05-29 16:10 | disposition home or self-care (01) ==
LOC: ANHPT 14:30
PROVIDERS: PCP Nurse Practitioner Family; Visit Provider Nurse Practitioner Family
DX: M25.50 Pain in unspecified joint (principal); R53.1 Weakness
CPT/HCPCS: 97014; 97022; 97110; 97162; 97530; G0283

== ENCOUNTER 2023-07-11 06:13 | Outpatient (CLI) | payer OTHER, SELFPAY ==
[2023-07-11 09:05] LABS: Basophils Percent Auto 0.2 % (0.2-1.2); Eosinophils Absolute Auto 0.2 K/mm3 (0-0.3); Eosinophils Percent Auto 4.8 % (0-4.4); Immature Granulocyte Absolute 0.03 K/mm3 (0.00-0.031); Immature Granulocyte Percent A 0.7 % (0-0.5); Lymphocytes Absolute Auto 1.24 K/mm3 (0.9-3.2); Lymphocytes Percent Auto 28.6 % (18.3-44.2); Mean Corpuscular HGB Conc 32.4 g/dl (32-36); Mean Corpuscular Hemoglobin 31.3 pg (26-34); Mean Corpuscular Volume 96.6 fl (80-100); Mean Platelet Volume 10.4 fl (7.4-10.4); Monocytes Absolute Auto 0.6 K/mm3 (0.1-0.6); Monocytes Percent Auto 12.9 % (2.6-8.5); Neutrophils Absolute Auto 2.3 K/mm3 (1.3-6.7); Neutrophils Percent Auto 52.8 % (45.5-73.1); Platelet Count Result 214 k/mm3 (150-375); Red Blood Count 3.83 M/mm3 (4.2-5.4); Red Cell Distribution Width 13.4 % (11.5-14.5); White Blood Count 4.3 K/mm3 (4.5-10.0)
[2023-07-11 09:19] LABS: Iron 70 ug/dL (37-170)
[2023-07-11 09:20] LABS: Anion Gap 4 mmol/L (4-12); Blood Urea Nitrogen 15 mg/dL (7-17); Calcium 8.8 mg/dL (8.4-10.2); Carbon Dioxide 27 mmol/L (22-30); Chloride 106 mmol/L (98-107); Estimated Glomerular Filt Rate 57; Glucose 104 mg/dL (65-110); Hemoglobin A1C 5.6 % (<5.7); Potassium 4.3 mmol/L (3.4-5.0); Sodium 137 mmol/L (137-145); Uric Acid 6.2 mg/dL (2.5-7.5)
[2023-07-11 09:23] LABS: Appearance Urine Turbid (Clear); Bacteria Urine 4+ /hpf; Bilirubin Urine Negative (Negative); Blood Urine Negative (Negative); Color Urine Yellow (Yellow); Glucose Urine UA Negative (Negative); Ketones Urine Negative (Negative); Leukocyte Esterase Ur 3+ LEU/UL (Negative); Need Manual Microscopic Reviewed; Nitrate Urine Negative (Negative); Protein Urine Trace mg/dL (Negative); RBC Urine 0-2 /hpf (0-2); Specific Grav Ur 1.021 (1.001-1.035); Squamous Epithelial Cell Urine Many /hpf (Few); Urobilinogen Urine 0.2 mg/dL (<2.0); WBC Urine 21-50 /hpf (0-3); pH Urine 5.5 (5.0-9.0)
[2023-07-11 09:27] LABS: Add Urine Microscopic? YES
[2023-07-11 09:30] LABS: Percent Iron Saturation 24 % (20-50)
[2023-07-11 09:39] LABS: Free T4 Free Thyroxine 1.36 ng/mL (0.78-2.19)
[2023-07-11 09:54] LABS: Thyroid Stimulating Hormone 0.683 uIU/mL (0.465-4.680)
== END 2023-07-11 06:14 | disposition home or self-care (01) ==
PROVIDERS: Internal Medicine; PCP Nurse Practitioner Family; Visit Provider Nurse Practitioner Family
DX: D64.9 Anemia, unspecified (principal); R20.2 Paresthesia of skin; I10 Essential (primary) hypertension; R73.03 Prediabetes; E03.9 Hypothyroidism, unspecified
CPT/HCPCS: 36415; 80048; 81001; 82607; 82728; 83036; 83540; 83550; 84439; 84443; 84550; 85025

== ENCOUNTER 2023-09-17 14:16 | Outpatient (CLI) | payer OTHER, SELFPAY ==
--- NOTE | ~2023-09-17 | US_ITS ---
EXAMINATION: US venous doppler [facility] DATE: 09/17/2023 15:57 INDICATION: Left lower limb localized edema. TECHNIQUE: Grayscale ultrasound images without and with compression and Doppler ultrasound images of the left lower extremity veins were obtained. COMPARISON: Ultrasound 03/15/2022 FINDINGS: The visualized portions of left common femoral vein, profunda (deep) femoral vein, femoral vein, popl iteal vein, peroneal veins, posterior tibial veins, and greater saphenous vein outflow are patent. IMPRESSION: 1. No deep venous thrombosis. Reviewed, dictated and finalized at location A.
== END 2023-09-17 14:17 | disposition home or self-care (01) ==
PROVIDERS: PCP Nurse Practitioner Family; Visit Provider Nurse Practitioner Family
DX: R60.0 Localized edema (principal)
CPT/HCPCS: 93971

== ENCOUNTER 2023-10-24 12:36 | Outpatient (CLI) | payer OTHER, SELFPAY ==
[2023-10-24 13:16] LABS: Basophils Percent Auto 0.5 % (0.2-1.2); Eosinophils Absolute Auto 0.1 K/mm3 (0-0.3); Eosinophils Percent Auto 2.3 % (0-4.4); Hematocrit 35.9 % (37.0-47.0); Hemoglobin 11.7 g/dL (12.0-15.0); Immature Granulocyte Absolute 0.05 K/mm3 (0.00-0.031); Immature Granulocyte Percent A 1.2 % (0-0.5); Lymphocytes Absolute Auto 1.58 K/mm3 (0.9-3.2); Lymphocytes Percent Auto 37.1 % (18.3-44.2); Mean Corpuscular HGB Conc 32.6 g/dl (32-36); Mean Corpuscular Hemoglobin 30.5 pg (26-34); Mean Corpuscular Volume 93.7 fl (80-100); Mean Platelet Volume 9.8 fl (7.4-10.4); Monocytes Absolute Auto 0.7 K/mm3 (0.1-0.6); Monocytes Percent Auto 15.3 % (2.6-8.5); Neutrophils Absolute Auto 1.9 K/mm3 (1.3-6.7); Neutrophils Percent Auto 43.6 % (45.5-73.1); Platelet Count Result 216 k/mm3 (150-375); Red Blood Count 3.83 M/mm3 (4.2-5.4); Red Cell Distribution Width 13.6 % (11.5-14.5); White Blood Count 4.3 K/mm3 (4.5-10.0)
[2023-10-24 13:29] LABS: Alanine Aminotransferase 21 U/L (6-35); Albumin Level 4.5 g/dL (3.5-5.1); Alkaline Phosphatase 70 U/L (38-126); Anion Gap 11 mmol/L (4-12); Aspartate Amino Transferase 33 U/L (14-36); Bilirubin,Total 0.5 mg/dL (0.2-1.3); Blood Urea Nitrogen 11 mg/dL (7-17); Calcium 9.2 mg/dL (8.4-10.2); Carbon Dioxide 26 mmol/L (22-30); Chloride 101 mmol/L (98-107); Cholesterol 219 mg/dL (0-200); Estimated Glomerular Filt Rate 57; Glucose 94 mg/dL (65-110); HDL Direct 50 mg/dL; Sodium 138 mmol/L (137-145); Triglycerides 110 mg/dL (<150)
[2023-10-24 13:41] LABS: LDL Cholesterol Direct 132 mg/dL
[2023-10-24 14:10] LABS: Hepatitis B Surface Antigen Negative (Negative)
[2023-10-24 14:28] LABS: Hepatitis B Surface Anti Res Negative; Hepatitis C Virus Antibody Negative (Negative)
[2023-10-25 11:38] LABS: Hepatitis B Core Ab Total NON-REACTIVE (NON-REACTIVE)
[2023-10-26 18:53] LABS: NIL 0.01 IU/mL; Quantiferon TB Plus, 1T NEGATIVE (NEGATIVE); TB1-NIL 0.01 IU/mL
== END 2023-10-24 12:37 | disposition home or self-care (01) ==
LOC: ANHLAB 12:38
PROVIDERS: PCP Nurse Practitioner Family; Visit Provider Registered Nurse
DX: L40.0 Psoriasis vulgaris (principal)
CPT/HCPCS: 36415; 80048; 80061; 80076; 85025; 86480; 86704; 86706; 86803; 87340

== ENCOUNTER 2023-12-12 05:44 | Emergency (ER) | payer OTHER, SELFPAY ==
[2023-12-12] VITALS (14 sets, daily range): BP systolic 107–135; BP diastolic 62–91; PULSE 54–78; RESP 12–19; TEMP 36.3–36.4; O2SAT 98–100
--- NOTE | ~2023-12-12 | XR_ITS ---
Clinical Indication: Syncope, weakness PA and lateral views of the chest: Comparison: 01/23/2022 Findings: The lungs are clear, without evidence of focal consolidation or pleural effusion. Cardiome diastinal silhouette is within normal limits. Bones and soft tissues are unremarkable. Impression: Normal chest. Reviewed, dictated and finalized at [facility]. Impression: Normal chest.
--- NOTE | 2023-12-12 05:53 | ECG_ITS ---
Test Date: 2023-12-12 05:55:13 Measurements Intervals [place] Rate: 65 P: 55 OR: 228 QRS: 38 QRSD: 94 T: 10 QT: 398 QTc: 416 Interpretive Statements SINUS RHYTHM WITH FIRST DEGREE AV BLOCK LOW QRS VOLTAGE IN PRECORDIAL LEADS [QRS DEFLECTION < 1.0 mV IN CHEST LEADS] POSSIBLE RIGHT VENTRICULAR CONDUCTION DELAY [RSR (QR) IN V1/V2] SEPTAL MYOCARDIAL INFARCTION , PROBABLY OLD [40+ ms Q WAVE IN V1/V2] No previous ECG available for comparison Electronically Signed On 12-12-2023 14:44:13 CDT by Harinder Ram M.D.
[2023-12-12 06:20] LABS: Basophils Percent Auto 0.3 % (0.2-1.2); Eosinophils Absolute Auto 0.2 K/mm3 (0-0.3); Eosinophils Percent Auto 2.5 % (0-4.4); Hematocrit 38.4 % (37.0-47.0); Hemoglobin 12.9 g/dL (12.0-15.0); Immature Granulocyte Absolute 0.05 K/mm3 (0.00-0.031); Immature Granulocyte Percent A 0.8 % (0-0.5); Lymphocytes Absolute Auto 2.06 K/mm3 (0.9-3.2); Lymphocytes Percent Auto 34.4 % (18.3-44.2); Mean Corpuscular HGB Conc 33.6 g/dl (32-36); Mean Corpuscular Hemoglobin 30.7 pg (26-34); Mean Corpuscular Volume 91.4 fl (80-100); Monocytes Absolute Auto 0.9 K/mm3 (0.1-0.6); Neutrophils Absolute Auto 2.8 K/mm3 (1.3-6.7); Platelet Count Result 286 k/mm3 (150-375)
[2023-12-12 06:31] LABS: Alanine Aminotransferase 22 U/L (6-35); Albumin Level 4.6 g/dL (3.5-5.1); Alkaline Phosphatase 77 U/L (38-126); Anion Gap 13 mmol/L (4-12); Aspartate Amino Transferase 31 U/L (14-36); Bilirubin,Total 0.6 mg/dL (0.2-1.3); Blood Urea Nitrogen 13 mg/dL (7-17); Calcium 9.2 mg/dL (8.4-10.2); Carbon Dioxide 23 mmol/L (22-30); Chloride 104 mmol/L (98-107); Estimated CRCL calculation 70 ml/min; Estimated Glomerular Filt Rate 46; Glucose 131 mg/dL (65-110); Potassium 3.6 mmol/L (3.4-5.0); Sodium 140 mmol/L (137-145)
[2023-12-12] MEDS: SODIUM CHLORIDE 0.9% IV 1,000 ML 999 ML IV CONT (07:33)
--- NOTE | 2023-12-12 07:44 | ED_ITS ---
HPI - General Adult General Chief complaint: Syncope Stated complaint: Passing out Time Seen by Provider: 12/12/23 07:02 History of Present Illness HPI narrative: 58-year-old female present to the emergency department for evaluation after having a syncopal episode today. Patient reports he does have history of POTS and does have multiple near syncopal episodes. Patient is also recovering from COVID. Patient states that today is her 1st day back to work. Patient did have a feeling of lightheaded dizziness and did rest her head on her desk. She states after a few seconds a co-worker woke her up and said that she needed to get into the wheelchair. Patient is unsure if she had loss of conscious but states that she did not fall from her desk. At time of evaluation the emergency department patient denies any chest pain or shortness of breath states she does feel back at her baseline. Patient denies any current complaints at this time. Related Data Home Medications Medication Instructions Recorded Confirmed acetaminophen 500 mg tablet 1,000 mg PO DAILY 01/23/22 10/16/23 risankizumab-rzaa [Skyrizi] subcut 12/07/23 Allergies Allergy/AdvReac Type Severity Reaction Status Date / Time epinephrine Allergy Severe VOMITING, Verified 12/12/23 07:32 SYNCOPE Sulfa (Sulfonamide Allergy Mild TONGUE Verified 12/12/23 07:32 Antibiotics) SWELLS,CAN'T BREATH codeine Allergy Unknown NAUSEA,TING Verified 12/12/23 07:32 LING,HEADAC HE NSAIDS (Non-Steroidal Allergy Unknown Other Verified 12/12/23 07:32 Anti-Inflamma Review of Systems Review of Systems: All systems reviewed & are unremarkable except as noted in HPI and below PMFSH Past Medical History Medical History (Updated 12/12/23 @ 08:58 by Alonzo Johnson MD) Anemia Anxiety Bilateral leg paresthesia Cellulitis Chronic anemia Depression Edema of left lower leg Elevated glucose Encounter to establish care Eye pain Factor V Leiden mutation Generalized weakness Graves disease Status post radioactive iodine ablation. Hypertension Hypothyroidism Lesion of ear Loss of vision Multiple joint pain Pain in left lower leg Psoriasis Psoriatic arthritis Rash and nonspecific skin eruption Surgical History Surgical History History of colonoscopy History of laparoscopic cholecystectomy Family History Family History Mother Deep venous thrombosis Hypertension Anxiety Depression Cerebrovascular accident Heart disease Grandparent Diabetes mellitus Sibling Hypertension Depression Anxiety Heart disease Cerebrovascular accident Social History Social History Social History: Surrogate medical decision maker: Roddy Conner, spouse. Code status: Full code. Smoking status: Former smoker Second hand tobacco smoke exposure: No Alcohol intake: current Drinks per week: 5 Substance use: never Substance use type: does not use Last use: 01/22/22 Lack of Transportation: No Lack of Food: Never True Current Housing: I Have Housing Concerned About Future Housing: No Difficulty Paying Gas/Electric Bills: No Difficulty Paying for Meds: No Currently Unemployed: No Education: High School Diploma/GED Difficulty w/ Childcare or Family Care: No Living arrangements: with family Additional living arrangements comments: Lives in [place] with spouse. Additional occupation/education comments: Works in [employer] at [employer]. Spiritual care concerns: No Exam Narrative: APPEARANCE: Well appearing, no pain, no distress, well-nourished. HEAD: normocephalic, atraumatic. EYES: PERRLA/EOMI, conjunctivae clear. NOSE: Normal no drainage EARS:TMS clear with good light reflex. THROAT: Pharynx clear, no exudate. NECK: Supple. No adenopathy, no masses. RESPIRATORY: Airway patent, respirations nonlabored. Clear to auscultation bilaterally, no rales, rhonchi, wheezing. CARDIOVASCULAR: Regular rate and rhythm without murmurs rubs or gallops. ABDOMINAL: Soft, nontender, nondistended, normal bowel sounds MUSCULOSKELETAL: Moves all extremities. Strength/ROM intact, No edema, No calf tenderness. NEURO: Alert. Cranial nerves II through XII intact. Good gait. Good coordination SKIN: Warm, dry. Normal Color Course Course Emergency Course: Patient did feel improved and was discharged to home. Vital Signs Vital signs: Vital Signs Temperature 97.5 F L 12/12/23 05:48 Pulse Rate 71 12/12/23 05:48 Respiratory Rate 19 12/12/23 05:48 Blood Pressure 126/91 H 12/12/23 05:48 Pulse Oximetry 98 12/12/23 05:48 Oxygen Delivery Room Air 12/12/23 05:48 Temperature 97.4 F L 12/12/23 09:17 Pulse Rate 57 L 12/12/23 09:17 Respiratory Rate 14 12/12/23 09:17 Blood Pressure 133/68 12/12/23 09:17 Pulse Oximetry 100 12/12/23 09:17 Oxygen Delivery Room Air 12/12/23 05:48 Medical Decision Making MDM Narrative Medical decision making narrative: 50-year-old female presenting to the emergency department for evaluation for a syncopal episode. Patient does have history of POTS. Patient states she felt like she was going to pass out was unsure if she actually had loss of consciousness. At time of initial evaluation patient states that she did feel improved at time of repeat evaluation patient states he does feel back to her baseline. Patient is afebrile with no leukocytosis and hemoglobin of 12.9. No acute electrolyte abnormalities. Patient was treated with IV fluids. Chest x- ray shows no acute cardiopulmonary abnormality. EKG showed sinus arrhythmia. Patient is back to her baseline. Patient had no fall or injury from the episode today. Patient was encouraged close follow-up with her primary care physician. Differential Diagnosis Differential Diagnosis: Hypotension, syncope, near-syncope, pots Vital Signs Vital Signs: Vital Signs Temperature 97.5 F L 12/12/23 05:48 Pulse Rate 71 12/12/23 05:48 Respiratory Rate 19 12/12/23 05:48 Blood Pressure 126/91 H 12/12/23 05:48 Pulse Oximetry 98 12/12/23 05:48 Oxygen Delivery Room Air 12/12/23 05:48 Temperature 97.4 F L 12/12/23 09:17 Pulse Rate 57 L 12/12/23 09:17 Respiratory Rate 14 12/12/23 09:17 Blood Pressure 133/68 12/12/23 09:17 Pulse Oximetry 100 12/12/23 09:17 Oxygen Delivery Room Air 12/12/23 05:48 Lab Data Lab results reviewed: Yes I reviewed the patient's lab results. 12/12/23 05:56 12/12/23 05:56 Labs: Lab Results 12/12/23 Range/Units 05:56 WBC 6.0 (4.5-10.0) K/mm3 RBC 4.20 (4.2-5.4) M/mm3 Hgb 12.9 (12.0-15.0) g/dL Hct 38.4 (37.0-47.0) % MCV 91.4 (80-100) fl MCH 30.7 (26-34) pg MCHC 33.6 (32-36) g/dl RDW 13.0 (11.5-14.5) % Plt Count 286 (150-375) k/mm3 MPV 10.0 (7.4-10.4) fl Immature Gran % (Auto) 0.8 H (0-0.5) % Neut % (Auto) 47.0 (45.5-73.1) % Lymph % (Auto) 34.4 (18.3-44.2) % [place] % (Auto) 15.0 H (2.6-8.5) % Eos % (Auto) 2.5 (0-4.4) % Baso % (Auto) 0.3 (0.2-1.2) % Lymph # (Auto) 2.06 (0.9-3.2) K/mm3 [place] # (Auto) 0.9 H (0.1-0.6) K/mm3 Eos # (Auto) 0.2 (0-0.3) K/mm3 Baso # (Auto) 0.0 (0.0-0.1) K/mm3 Abs Immat Gran (auto) 0.05 H (0.00-0.031) K/mm3 Absolute Neuts (auto) 2.8 (1.3-6.7) K/mm3 Absolute Nucleated RBC 0.000 (0.0-0.012) K/mm3 Nucleated RBC % 0.0 (0.0-0.2) % Sodium 140 (137-145) mmol/L Potassium 3.6 (3.4-5.0) mmol/L Chloride 104 (98-107) mmol/L Carbon Dioxide 23 (22-30) mmol/L Anion Gap 13 H (4-12) mmol/L BUN 13 (7-17) mg/dL Creatinine 1.20 H (0.7-1.0) mg/dL Estim Creat Clear Calc 70 ml/min Estimated GFR 46 L (59 - ) Glucose 131 H (65-110) mg/dL Calcium 9.2 (8.4-10.2) mg/dL Total Bilirubin 0.6 (0.2-1.3) mg/dL AST 31 (14-36) U/L ALT 22 (6-35) U/L Alkaline Phosphatase 77 (38-126) U/L Total Protein 9.0 H (6.3-8.2) g/dL Albumin 4.6 (3.5-5.1) g/dL Imaging Data Radiologist's impression: Impressions Chest X-Ray 12/12/23 06:27 Impression: Normal chest. ECG Data EKG #1: EKG Interpretation: normal rate, sinus rhythm, no ectopy, non-specific ST changes, normal QRS and normal QT Discharge Plan Discharge Clinical Impression: Near syncope Patient Disposition: Home, Self-Care Condition: Stable Instructions: Antibiotic Form, Syncope (ED) Additional Instructions: Have close follow-up with your primary care physician. If you have any worsening symptoms then please call or return to the emergency department. Prescriptions: No Action clobetasol 0.05 % cream 1 applic topical BID Qty: 60 2RF acetaminophen 500 mg Tablet 1,000 mg PO DAILY ondansetron 4 mg tablet,disintegrating 4 mg PO Q8H PRN (Reason: nausea and vomiting) Qty: 20 0RF venlafaxine 37.5 mg capsule,extended release 24hr 37.5 mg PO DAILY Qty: 30 11RF lisinopril 20 mg tablet 20 mg PO DAILY Qty: 90 3RF metoprolol tartrate 50 mg tablet 50 mg PO Q12H Qty: 180 3RF liothyronine 5 mcg tablet 2.5 mcg PO BID Qty: 90 0RF Rx Instructions: 2.5 mcg twice daily levothyroxine [Tirosint] 125 mcg capsule 125 mcg PO DAILY Qty: 90 0RF alprazolam 0.5 mg tablet 0.5 mg PO HS Qty: 30 5RF Rx Instructions: takes at bedtime Eliquis 5 mg tablet See Rx Instructions .ROUTE .COMPLEX 30 Days Qty: 70 11RF Rx Instructions: Take 10 mg (2 tablets) by mouth twice daily for 5 more days (total 10 doses), then start 5 mg by mouth twice daily until stopped by your health care provider. Next dose 01/26/22 at 9 pm. risankizumab-rzaa [Skyrizi] subcut Follow-up/Referrals: Shiela Sneed NP [Primary Care Provider] - Stand Alone Forms: Work/School Release IP
== END 2023-12-12 09:19 | disposition home or self-care (01) ==
PROVIDERS: Emergency Medicine; Emergency Provider Emergency Medicine; PCP Nurse Practitioner Family
DX: R55 Syncope and collapse (principal); F41.8 Other specified anxiety disorders; I10 Essential (primary) hypertension; E03.9 Hypothyroidism, unspecified; E05.00 Thyrotoxicosis with diffuse goiter without thyrotoxic crisis or storm; D68.51 Activated protein C resistance; Z87.891 Personal history of nicotine dependence
CPT/HCPCS: 36415; 71046; 80053; 85025; 93005; 96360; 99284; J7030

== ENCOUNTER 2023-12-20 06:59 | Outpatient (CLI) | payer OTHER, SELFPAY ==
[2023-12-20 08:43] LABS: Cortisol Baseline 6.86 ug/dL
[2023-12-20 09:52] LABS: Free T4 Free Thyroxine 1.81 ng/mL (0.78-2.19)
== END 2023-12-20 07:00 | disposition home or self-care (01) ==
PROVIDERS: PCP Nurse Practitioner Family
DX: E03.9 Hypothyroidism, unspecified (principal)
CPT/HCPCS: 36415; 82533; 84439; 84443

== ENCOUNTER 2024-06-18 08:50 | Outpatient (CLI) | payer OTHER, SELFPAY ==
--- OUTSIDE RECORDS SUMMARY | 2024-06-18 09:06 | XMS_ITS | Encounter Summary ---
Author Organization [facility] Address [address] [place] [address] Care Team Providers Care Recruiting And Selection Consultant Name Role Phone Jhonny Garrett MD Primary Care Provider [phone] Encounter Details Date Type Department Care Team (Late st Contact Info) Description 10/05/1997 Outpatient Historical [facility] Alcocer Social History Tobacco Use Types Packs/Day Years Used Date Smoking Tobacco: Never Assessed Comments Unknown Sex and Gender Information Value Date Recorded Sex Assigned at Not on file Legal Sex Female 2:48 AM [employer] Gender Identity Not on file Sexual Orientation Not on file documented as of this encounter Plan of Treatment Not on file documented as of this encounter Visit Diagnoses Not on filedocumented in this encounter Care Teams Recruiting And Selection Consultant Relationship Specialty Start Date End Date Jhonny Garrett MD [address] [place] [id number] PCP - General Family Practice 03/12/23 documented as of this encounter
--- OUTSIDE RECORDS SUMMARY | 2024-06-18 09:06 | XMS_ITS | Patient Health Record ---
Author Organization [facility] Address [address] [facility] [address] [address] Care Team Providers Care Endoscopic Technician Name Role Phone LOUIE MENDENHALL Unavailable [phone] Allergies Allergen (clinical drug ingredient) Drug/Non Drug Allergy documented on EMR Reaction Allergy Type Onset Date Status Contrast Allergy PreMed Pack Unknown Drug Allergy Active Reason For Referral No Information Medications Medication SIG (Take, Route, Frequency, Duration) Notes Start Date End Date Status Lisinopril 20 MG Oral for 30 Days Active Venlafaxine HCl ER 37.5 MG Oral for 30 Days Active Semaglutide-Weight Management 1 MG/0.5ML 1 mg Subcutaneous weekly for [address] hamlin,deliver to pts home,2 cc of semaglutide,1 mg qweek 03/24/2024 Active Metoprolol Tartrate 50 MG Oral for 30 Days Active Xanax 0.5 MG 1 tablet Orally Twic e a day Active Levothyroxine Sodium 125 MCG Oral for 30 Days Active Eliquis 5 MG Oral for 30 Days Active Liothyronine Sodium 5 MCG Oral for 30 Days Active Problems Problem Type SNOMED Code ICD Code Onset Dates Problem Status W/U Status Risk Notes Problem Morbid obesity (disorder) (497405379) Morbid (severe) obesity due to excess calories (E66.01) Active confirmed Problem Phlebitis and thrombophlebitis of iliac vein, 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) Active confirmed Vital Signs Heart Rate 73 /min 2024 Respiratory Rate 16 /min 2024 Blood pressure diastolic 67 mm Hg 2024 Height 70 in 2024 Blood pressure systolic 132 mm Hg 2024 Weight 276.4 lbs 2024 BMI 39.65 kg/m2 2024 Encounters Encounter Location Date Provider Diagnosis [facility] [address] [facility] [address] [place] [address] 01/09/2024 LOUIE ZA [facility] [address] [place], [place] [id number] 02/04/2024 LOUIE ZA [address] [address] 02/15/2024 LOUIE ZA [address] [id number] 03/16/2024 LOUIE ZA [facility] [address] [facility] [address] [place] [id number] 06/16/2024 LOUIE ZA [address] [id number] 09/24/2023 LOUIE ZA Morbid (severe) obesity due to excess calories E66.01 ; Pain in leg, unspecified M79.606 and Phlebitis and thrombophlebitis of iliac vein, bilateral I80.[address] [address] 11/26/2023 LOUIE ZA Phlebitis and thrombophlebitis of iliac vein, bilateral I80.213 and Morbid (severe) obesity due to excess calories E66.[address] [address] 12/14/2023 LOUIE ZA Phlebitis and thrombophlebitis of iliac vein, bilateral I80.213 and Morbid (severe) obesity due to excess calories E66.[address] [address] 01/07/2024 LOUIE ZA Phlebitis and thrombophlebitis of iliac vein, bilateral I80.213 and Morbid (severe) obesity due to excess calories E66.[address] [address] 02/15/2024 LOUIE ZA Phlebitis and thrombophlebitis of iliac vein, bilateral I80.213 and Morbid (severe) obesity due to excess calories E66.[address] [address] 03/24/2024 LOUIE ZA Phlebitis and thrombophlebitis of iliac vein, bilateral I80.213 ; Morbid (severe) obesity due to excess calories E66.01 and Lymphedema of both lower extremities I89.[address] [id number] 2024 LOUIE ZA Phlebitis and thrombophlebitis of iliac vein, bilateral I80.213 ; Morbid (severe) obesity due to excess calories E66.01 and Lymphedema of both lower extremities I89.0 [facility] [address] [place] [address] [place] [address] 2024 LOUIE ZA [facility] [address] [place] [address] [place] [phone] 09/24/2023 LOUIE ZA [facility] [address] [address] 09/24/2023 LOUIE ZA Phlebitis and thrombophlebitis of iliac vein, bilateral I80.213 [facility] [address] [address] 11/05/2023 LOUIE ZA [facility] [address] [place] [address] [place] [phone] 11/26/2023 LOUIE ZA [address] [id number] 12/10/2023 LOUIE ZA [address] [id number] 12/19/2023 LOUIE ZA [facility] [address] [address] 01/07/2024 LOUIE ZA [facility] [address] [place] [address] [place] [phone] 01/07/2024 LOUIE ZA [facility] [address] [address] 01/26/2024 LOUIE ZA [facility] [address] [address] 02/15/2024 LOUIE ZA [facility] [address] [address] 02/29/2024 LOUIE MENDENHALL [facility] [address] [address] 02/29/2024 LOUIE MENDENHALL [facility] [address] [address] 03/24/2024 LOUIE MENDENHALL [facility] [address] [address] 2024 LOUIE MENDENHALL Assessments Encounter Date Diagnosis (ICD Code) Assessment Notes Treatment Notes Treatment Clinical Notes Section Notes 09/24/2023 Pain in leg, unspecified (ICD-10 - M79.606) 09/24/2023 Phlebitis and thrombophlebitis of iliac vein, bilateral (ICD-10 - I80.213) 11/26/2023 Morbid (severe) obesity due to excess calories (ICD-10 - E66.01) Will benefit from weight loss Patient has failed to achieve desired weight loss (2.5% in one month or 5% in 6months) with the following medications. Maximize pharmacological therapy as well as maintain lifestyle modifications for weight loss. Increase activity to 150min/week. Protein 0.6-0.7gm per pound of ideal body weight. Patient should notify the office of lump or swelling in the neck, trouble swallowing, shortness of breath or new abdominal pain.Will start wegovy samples 11/26/2023 Phlebitis and thrombophlebitis of iliac vein, bilateral (ICD-10 - I80.213) There is no iliac vein obstruction, Recommend use of 20-30mmhg graduated compression stockings today. Will continue with all conservative measures, including compression stockings, leg elevation, exercise, and NSAID-s. Will schedule for VRS of BLE to better understand patient's venous disease. Further recommendations will follow.Has factor 5 anomaly/thrombophi juventino 09/24/2023 Morbid (severe) obesity due to excess calories (ICD-10 - E66.01) Will need weight loss program,but could not tolerate GLP 1a,,will need more activity/diet controll,is at high risk to develope lymphedema,weight loss,compression can help to prevent it 12/14/2023 Phlebitis and thrombophlebitis of iliac vein, bilateral (ICD-10 - I80.213) suspect lymphedema developing,will increase compression/weight loss 02/15/2024 Phlebitis and thrombophlebitis of iliac vein, bilateral (ICD-10 - I80.213) Venous reflux studies demonstrate significant venous reflux disease in lower extremities. Will start conservative therapy with compression stockings, leg elevation, exercise and NSAID-s. Further recommendations will follow.Will try more med rx,specially weight loss 03/24/2024 Morbid (severe) obesity due to excess calories (ICD-10 - E66.01) 03/24/2024 Phlebitis and thrombophlebitis of iliac vein, bilateral (ICD-10 - I80.213) 01/07/2024 Phlebitis and thrombophlebitis of iliac vein, bilateral (ICD-10 - I80.213) Recommend use of 20-30mmhg graduated compression stockings today. Will continue with all conservative measures, including compression stockings, leg elevation, exercise, and NSAID-s. Will schedule for VRS of BLE to better understand patient's venous disease. Further recommendations will follow. 2024 Phlebitis and thrombophlebitis of iliac vein, bilateral (ICD-10 - I80.213) Today's venous reflux studies demonstrate significant venous reflux disease in lower extremities. Patient is failing conservative measures with compression stockings, leg elevation, exercise and NSAID's. Will benefit from ablation procedure. Will schedule for left gsv rfa/varithena__ in near future. Meanwhile will continue conservative therapy. 02/15/2024 Morbid (severe) obesity due to excess calories (ICD-10 - E66.01) Loosing weight, Continue current therapy,samples given for semaglutide 0.25 mg q week 03/24/2024 Lymphedema of both lower extremities (ICD-10 - I89.0) Edema better 2024 Morbid (severe) obesity due to excess calories (ICD-10 - E66.01) Doing ok,doing 63 units[close to 1.7 mg semaglutide] weekly,doing well,no se 01/07/2024 Morbid (severe) obesity due to excess calories (ICD-10 - E66.01) Cont with Semaglutide 0.25 mg qweek since she is loosing, Continue current therapy 09/24/2023 Phlebitis and thrombophlebitis of iliac vein, bilateral (ICD-10 - I80.213) Has venous claudication type pains,need to ro iliac compression,will need MR venogram,has allergy to contrast 12/14/2023 Morbid (severe) obesity due to excess calories (ICD-10 - E66.01) Aggressive weight loss. Patient has failed to achieve desired weight loss (2.5% in one month or 5% in 6months) with medications.Maximi ze pharmacological therapy as well as maintain lifestyle modifications for weight loss. Increase activity to 150min/week. Protein 0.6-0.7gm per pound of ideal body weight. Patient should notify the office of lump or swelling in the neck, trouble swallowing, shortness of breath or new abdominal pain.Will start Wegovy 0.25 mg qw 2024 Lymphedema of both lower extremities (ICD-10 - I89.0) Leg Measurements: Left Calf:16 inch Left Ankle:13 Right Calf:14 Right Ankle:11 This case of Lymphedema is caused by: _X_ Stage II Lymphedema, not elsewhere classified [I89.0] SYMPTOMS DESPITE CONSERVATIVE THERAPY: ___ Hyperkeratosis/ fibrosis _X_ Hyperplasia _X_ Hyperpigmentation ___ Skin breakdown with lymphorrhea (skin weeping) ___ Papillomatosis ___ Recurrent cellulitis ___ Elephantiasis ___ Progressive edema _X_ Truncal/abdominal lymphedema ___ Genital swelling _X_ Unable to control swelling _X_ Impaired ROM _X_ Impaired mobility ___ Pain CONSERVATIVE TREATMENT: Patient has tried the following conservative treatments swelling remains. _X_ Compression garments: >4 WEEKS _X_ Elevation: >4 WEEKS _X_ Exercise: >4 WEEKS PNEUMATIC COMPRESSION DEVICE EVALUATION: Patient has tried an E0651 basic pneumatic compression device? [YES or NO]will need le pump-pt-ot Plan Of Treatment Pending Test Test Name Order Date MRA/MRV Pelvis W and W/O Contrast 2023 Next Appt Details Provider Name:LOUIE MCWILLIAMS, 06/23/2024 11:30:00 AM, [address] [place] [address], [place], [place], [id number], Insurance Providers Payer Name Payer Address Payer Phone Subscriber Number Group Number Insured Name Patient Relationship to Insured Coverage Start Date Coverage End Date [facility] [address] [place] [address] [phone] [id number] Kristel Conner Self - patient is the insured Medical (General) History Medical History History ICD Code pots obesity htn dvt
--- OUTSIDE RECORDS SUMMARY | 2024-06-18 09:06 | XMS_ITS | Encounter Summary ---
Author Organization [employer] Address [address] [place] [address] Care Team Providers Care Drywall Carrier Name Role Phone Jhonny Garrett MD Primary Care Provider [phone] Encounter Details Date Type Department Care Team (Late st Contact Info) Description 11/15/1999 Outpatient Historical [facility] J[facility] MCLEAN, & Indio Hudson MD Social History Tobacco Use Types Packs/Day Years Used Date Smoking Tobacco: Never Assessed Comments Unknown Sex and Gender Information Value Date Recorded Sex Assigned at Not on file Legal Sex Female 2:48 AM HEEL SPRAYER FIRST Gender Identity Not on file Sexual Orientation Not on file documented as of this encounter Plan of Treatment Not on file documented as of this encounter Visit Diagnoses Not on filedocumented in this encounter Care Teams Drywall Carrier Relationship Specialty Start Date End Date Jhonny Garrett MD [address] [place] [phone] PCP - General Family Practice 03/12/23 documented as of this encounter
--- OUTSIDE RECORDS SUMMARY | 2024-06-18 09:06 | XMS_ITS | Encounter Summary ---
Author Organization [employer] Address [address] [place] [address] Care Team Providers Care Derrick Helper Name Role Phone Jhonny Garrett MD Primary Care Provider [phone] Encounter Details Date Type Department Care Team (Late st Contact Info) Description 05/20/1999 Outpatient Historical [facility] JANI MCLEAN, & Indio Hudson MD Social History Tobacco Use Types Packs/Day Years Used Date Smoking Tobacco: Never Assessed Comments Unknown Sex and Gender Information Value Date Recorded Sex Assigned at Not on file Legal Sex Female 2:48 AM PUBLIC SERVICE ADMINISTRATOR Gender Identity Not on file Sexual Orientation Not on file documented as of this encounter Plan of Treatment Not on file documented as of this encounter Visit Diagnoses Not on filedocumented in this encounter Care Teams Derrick Helper Relationship Specialty Start Date End Date Jhonny Garrett MD [address] [place] [phone] PCP - General Family Practice 03/12/23 documented as of this encounter
--- OUTSIDE RECORDS SUMMARY | 2024-06-18 09:06 | XMS_ITS | Encounter Summary ---
Author Organization [employer] Address [address] [place] [address] Care Team Providers Care Bottle Labeler Name Role Phone Jhonny Garrett MD Primary Care Provider [phone] Encounter Details Date Type Department Care Team (Late st Contact Info) Description 03/19/1998 Outpatient Historical [facility] JANI MCLEAN, & Indio Hudson MD Social History Tobacco Use Types Packs/Day Years Used Date Smoking Tobacco: Never Assessed Comments Unknown Sex and Gender Information Value Date Recorded Sex Assigned at Not on file Legal Sex Female 2:48 AM SIGN FABRICATOR Gender Identity Not on file Sexual Orientation Not on file documented as of this encounter Plan of Treatment Not on file documented as of this encounter Visit Diagnoses Not on filedocumented in this encounter Care Teams Bottle Labeler Relationship Specialty Start Date End Date Jhonny Garrett MD [address] [place] [phone] PCP - General Family Practice 03/12/23 documented as of this encounter
--- OUTSIDE RECORDS SUMMARY | 2024-06-18 09:06 | XMS_ITS | Clinical Summary ---
Author Organization [facility] [address] [facility] [address] [place] [address] Care Team Providers Care Bowling Floor Desk Clerk Name Role Phone Zehra Sneed Primary Care Provider Unavailabl e Indio Bellamy MD Unavailable [phone] Jhonny Garrett MD Unavailable Allergies Active Allergy Reactions Criticality Noted Date Comments Codeine Itching Reaction: Itching, Epinephrine Epinephrine Headache Low 03/10/2022 Nsaids (Non-Steroidal Anti-Inflammatory Drug) Palpitations Low 03/10/2022 Sulfa (Sulfonamide Antibiotics) Angioedema Reaction: Angioedema, Sulfa (Sulfonamide Antibiotics) Swelling Medium 03/10/2022 Sulfamethoxazole Sulfamethoxazole-Trimetho prim Other (See comments),Redness,Swe lling Medium 05/24/2022 Trimethoprim Medications lisinopriL (PRINIVIL,ZESTRIL) 20 mg tablet Take 0.5 tablets (10 mg total) by mouth daily 3 Active levothyroxine (SYNTHROID) 125 mcg tablet 3 Active ALPRAZolam (XANAX) 0.5 mg tablet 3 Active venlafaxine XR (EFFEXOR-XR) 37.5 mg 24 hr capsule 3 Active Eliquis 5 mg tablet TAKE 1 TABLET BY MOUTH TWICE DAILY UNTIL STOPPED BY PROVIDER 3 Active ondansetron ODT (ZOFRAN-ODT) 4 mg disintegrating tablet DISSOLVE 1 TABLET ON THE TONGUE EVERY 8 HOURS NEEDED FOR NAUSEA OR VOMITING 2 Active metoprolol tartrate (LOPRESSOR) 50 mg immediate release tablet Take 1 tablet (50 mg total) by mouth 2 (two) times a day 180 tablet 3 3 Active albuterol HFA (PROVENTIL HFA,VENTOLIN HFA,PROAIR HFA) 90 mcg/actuation inhaler 2 Active Skyrizi 150 mg/mL pen injector 4 Active liothyronine (CYTOMEL) 5 mcg tablet 4 Active semaglutide (Wegovy) 0.25 mg/0.5 mL auto-injector Inject 0.5 mL (0.25 mg total) under the skin every 7 days Active Active Problems Problem Noted Date Diagnosed Date Syncope and collapse 03/10/2022 Other fatigue 03/10/2022 DVT (deep venous thrombosis) 03/10/2022 Hypothyroidism 03/10/2022 Morbid obesity 03/10/2022 Postablative hypothyroidism 06/28/2013 Overview (05/19/2016): POSTABLAT HYPOTHYR NEC Surgical History Surgery Date Site/Laterality Comments OTHER SURGICAL HISTORY cholecysectomy CHOLECYSTECTOMY Medical History Medical History Date Comments Hx Other Medical ocular migraine s Hx Other Medical graves disease/ hypothyriodism Hypertension Hypertension Depression Depression Adiposity Obesity DVT (deep venous thrombosis) (HCC) Hypertension Family History Medical History Relation Name Comments Lung cancer Father Diabetes Maternal Grandmother Hypertension Mother Stroke Mother Coronary artery disease Other 1 Fami ly history of Coronary artery disease; Hyperlipidemia Other 2 Family histor y of Hyperlipidemia; Stroke Other 3 Family history of Stroke; Other Other 4 No family histo ry of Diabetes mellitus; Hypertension Other 5 Family history of Hypertension; Other Other 6 No family histo ry of Renal disease; Heart attack Sister Rheum arthritis Sister Relation Name Status Comments Father Maternal Grandmother Mother Other 1 Other 2 Other 3 Other 4 Other 5 Other 6 Sister Social History Tobacco Use Types Packs/Day Years Used Date Smoking Tobacco: Never Smokeless Tobacco: Never Tobacco Cessation:Counseling Given: Not Answered Alcohol Use Standard Drinks/Week Comments Yes 0 (1 standard drink = 0.6 oz pur e alcohol) Comments Unknown Sex and Gender Information Value Date Recorded Sex Assigned at Not on file Legal Sex Female 10:34 AM CAREER TECHNICAL SUPERVISOR Gender Identity Not on file Sexual Orientation Not on file Obstetrics History Last Filed Vital Signs Vital Sign Reading Time Taken Comments Blood Pressure 125/80 12/19/2023 9:01 AM CAREER TECHNICAL SUPERVISOR Pulse 89 12/19/2023 9:01 AM CAREER TECHNICAL SUPERVISOR Temperature 36.7 C (98.1 F) 12/19/2023 9:01 AM CAREER TECHNICAL SUPERVISOR Respiratory Rate - - Oxygen Saturation 95% 03/10/2022 11: 01 AM CAREER TECHNICAL SUPERVISOR Inhaled Oxygen Concentration - - Weight 141.2 kg (311 lb 3.2 oz) 12/19/2023 9:01 AM CAREER TECHNICAL SUPERVISOR Height 177.8 cm (5' 10 ) 12/19/2023 9:01 AM CAREER TECHNICAL SUPERVISOR Body Mass Index 44.65 12/19/2023 9:01 AM CAREER TECHNICAL SUPERVISOR Plan of Treatment Health Maintenance Due Date Last Done Comments Breast Cancer Screening-Mammogram 1965 Cervical Cancer Screening 1965 Colon Cancer Screening-Colonoscopy 1965 Depression Screening 1965 Hepatitis C Screening 1965 DTaP/Tdap/Td Vaccine (1 - Tdap) 1976 Hepatitis B Screening 05/06/1983 Regular Well Visit/Exam 18-64 05/06/1983 Zoster Vaccine (1 of 2) 05/06/2015 Covid-19 Vaccine (4 - 2023-2 5 season) 2023 11/19/2020, 02/20/2020, 01/30/2020 Influenza Vaccine (Season Ended) 2024 Pneumococcal vaccine <65 Aged Out No longer eligible based on patient's age to complete this topic Insurance [facility] Care Teams Bowling Floor Desk Clerk Relationship Specialty Start Date End Date Zehra Sneed PCP - General Pediatric Cardiology 10/24/23 Indio Bellamy MD [address] [address] 01/18/22 Jhonny Garrett MD [address] [address] Referring Physician Family Medicine 06/01/22
--- OUTSIDE RECORDS SUMMARY | 2024-06-18 09:06 | XMS_ITS | Clinical Summary ---
Author Organization [facility] Address [address] [place] [address] Care Team Providers Care Artificial Stone Setter Name Role Phone Jhonny Garrett MD Primary Care Provider [phone] Allergies Active Allergy Reactions Criticality Noted Date Comments Epinephrine Other (See Comments),Palpitations Low 05/24/2022 Nsaids (Non-Steroidal Anti-Inflammatory Drug) Palpitations,Other (See Comments) Low 05/24/2022 Sulfamethoxazole-Trimethopri m Other (See Comments),Swelling Low 05/24/2022 Medications apixaban (Eliquis) 5 mg tablet TAKE 1 TABLET BY MOUTH TWICE DAILY UNTIL STOPPED BY PROVIDER 03/20/2022 Active levothyroxine 125 mcg tablet 03/24/2022 Acti ve lisinopriL (PRINIVIL) 10 mg tablet 04/26/2022 Active metoprolol tartrate (LOPRESSOR) 50 mg tablet 03/30/2022 Active venlafaxine (EFFEXOR XR) 37.5 mg Extended Release 24 hour capsule 03/24/2022 Active ALPRAZolam (XANAX) 0.5 mg tablet 03/31/2022 Active Active Problems No known active problems Family History Medical History Relation Name Comments Lung Cancer Father Heart Disease Sister 1 Relation Name Status Comments Daughter Alive Father Mother Sister 1 Alive Sister 2 Alive Social History Tobacco Use Types Packs/Day Years Used Date Smoking Tobacco: Former Cigarettes Smokeless Tobacco: Never Tobacco Cessation:Counseling Given: Not Answered Alcohol Use Standard Drinks/Week Comments Yes 0 (1 standard drink = 0.6 oz pur e alcohol) Comments Unknown Sex and Gender Information Value Date Recorded Sex Assigned at Not on file Legal Sex Female 2:48 AM WIRE FRAME MAKER Gender Identity Not on file Sexual Orientation Not on file Last Filed Vital Signs Vital Sign Reading Time Taken Comments Blood Pressure 156/93 03/12/2023 3:15 PM WIRE FRAME MAKER Pulse 60 03/12/2023 3:11 PM WIRE FRAME MAKER Temperature 36.2 C (97.2 F) 03/12/2023 3:11 PM WIRE FRAME MAKER Respiratory Rate 10 03/12/2023 3:11 PM WIRE FRAME MAKER Oxygen Saturation 95% 03/12/2023 3:11 PM WIRE FRAME MAKER Inhaled Oxygen Concentration - - Weight 152.4 kg (336 lb) 03/12/2023 3:11 PM WIRE FRAME MAKER Height 177.8 cm (5' 10 ) 03/12/2023 3:11 PM WIRE FRAME MAKER Body Mass Index 48.21 03/12/2023 3:11 PM WIRE FRAME MAKER Plan of Treatment Health Maintenance Due Date Last Done Comments DTAP/TDAP/TD VACCINES (1 - Tdap) 1984 HEPATITIS B VACCINES (1 of 3 - 19+ 3-dose series) 04/13 HPV/Cotest (21-29) 1986 CERVICAL CANCER SCREENING 05/06/1995 HPV/Cotest (30-65) 05/06/1995 PAP SMEAR 05/06/1995 BREAST CANCER SCREENING 2005 COLORECTAL SCREENING 2010 Colorectal Cancer Screening 2010 FIT-DNA Q 3 years 2010 FIT/FOBT Q 1 year 2010 Flex Sig/CT Colonography Q 5 years 2010 ZOSTER VACCINE (1 of 2) 05/06/2015 INFLUENZA VACCINE (#1) 2023 Insurance DUAL COMPLETE HMO [facility] [id number] Care Teams Artificial Stone Setter Relationship Specialty Start Date End Date Jhonny Garrett MD [address] [place] [phone] PCP - General Family Practice 03/12/23
--- OUTSIDE RECORDS SUMMARY | 2024-06-18 09:06 | XMS_ITS | Encounter Summary ---
Author Organization [employer] Address [address] [place] [address] Care Team Providers Care Packaging Design Engineer Name Role Phone Jhonny Garrett MD Primary Care Provider [phone] Encounter Details Date Type Department Care Team (Late st Contact Info) Description 08/30/1999 Outpatient Historical [facility] AJNI MCLEAN, & Indio Hudson MD Social History Tobacco Use Types Packs/Day Years Used Date Smoking Tobacco: Never Assessed Comments Unknown Sex and Gender Information Value Date Recorded Sex Assigned at Not on file Legal Sex Female 2:48 AM TECHNICAL SERVICES ASSISTANT Gender Identity Not on file Sexual Orientation Not on file documented as of this encounter Plan of Treatment Not on file documented as of this encounter Visit Diagnoses Not on filedocumented in this encounter Care Teams Packaging Design Engineer Relationship Specialty Start Date End Date Jhonny Garrett MD [address] [place] [phone] PCP - General Family Practice 03/12/23 documented as of this encounter
--- OUTSIDE RECORDS SUMMARY | 2024-06-18 09:06 | XMS_ITS | Encounter Summary ---
Author Organization [employer] Address [address] [place] [address] Care Team Providers Care Edge Banding Machine Offbearer Name Role Phone Jhonny Garrett MD Primary Care Provider [phone] Encounter Details Date Type Department Care Team (Late st Contact Info) Description 10/20/1997 Outpatient Historical [facility] Al[facility]er Social History Tobacco Use Types Packs/Day Years Used Date Smoking Tobacco: Never Assessed Comments Unknown Sex and Gender Information Value Date Recorded Sex Assigned at Not on file Legal Sex Female 2:48 AM WAGON DRILL OPERATOR Gender Identity Not on file Sexual Orientation Not on file documented as of this encounter Plan of Treatment Not on file documented as of this encounter Visit Diagnoses Not on filedocumented in this encounter Care Teams Edge Banding Machine Offbearer Relationship Specialty Start Date End Date Jhonny Garrett MD [address] [place] [address] PCP - General Family Practice 03/12/23 documented as of this encounter
--- OUTSIDE RECORDS SUMMARY | 2024-06-18 09:06 | XMS_ITS | Encounter Summary ---
Author Organization [employer] Address [address] [place] [address] Care Team Providers Care Collection Development Librarian Name Role Phone Jhonny Garrett MD Primary Care Provider [phone] Encounter Details Date Type Department Care Team (Late st Contact Info) Description 11/02/1997 Outpatient Historical [facility] Bryant Alcocer Social History Tobacco Use Types Packs/Day Years Used Date Smoking Tobacco: Never Assessed Comments Unknown Sex and Gender Information Value Date Recorded Sex Assigned at Not on file Legal Sex Female 2:48 AM SENIOR INVESTMENT ANALYST Gender Identity Not on file Sexual Orientation Not on file documented as of this encounter Plan of Treatment Not on file documented as of this encounter Visit Diagnoses Not on filedocumented in this encounter Care Teams Collection Development Librarian Relationship Specialty Start Date End Date Jhonny Garrett MD [address] [place] [address] PCP - General Family Practice 03/12/23 documented as of this encounter
--- OUTSIDE RECORDS SUMMARY | 2024-06-18 09:06 | XMS_ITS ---
Author Organization [facility] Address [address] [facility] [address] [place] [address] Care Team Providers Care Tube Pusher Name Role Phone LOUIE MENDENHALL Unavailable [phone] REASON FOR VISIT pre cert left varithena Encounters Encounter Location Date Provider Diagnosis [facility] [address] [facility] [address] [place] [address] 2024 LOUIE MENDENHALL Plan Of Treatment Next Appt Details Provider Name:LOUIE MCWILLIAMS, 06/23/2024 11:30:00 AM, [address] [place] [address], [id number], Progress Notes * Kristel CONNERDOB:1965 (59 yo F)Acc No.[id number]:2024 Patient: Em BOBO, Kristel :1965 A ge:59 Y S ex:Female Address:[address] [place] [address] * * Date:
--- OUTSIDE RECORDS SUMMARY | 2024-06-18 09:06 | XMS_ITS | Clinical Summary ---
Author Organization [facility] Address [address] [place] [address] Care Team Providers Care Crusher Foreman Name Role Phone Esha Julio Primary Care Provider [phone] Allergies Active Allergy Reactions Criticality Noted Date Comments Epinephrine Other (see comment),Palpitations,Tac hycardia Low 05/24/2022 Nsaids Palpitations,Tachycardia Low 05/24/2022 Sulfamethoxazole-Trimethopri m Redness,Swelling 05/24/2022 Medications albuterol sulfate HFA 108 (90 Base) MCG/ACT inhaler 06/28/2021 Act ric ALPRAZolam (XANAX) 0.5 MG tablet 03/31/2022 Active ELIQUIS 5 MG tablet TAKE 1 TABLET BY MOUTH TWICE DAILY UNTIL STOPPED BY PROVIDER 03/20/2022 Active levothyroxine (SYNTHROID) 125 MCG tablet 03/24/2022 Active metoprolol tartrate (LOPRESSOR) 50 MG tablet 03/30/2022 Active venlafaxine XR (EFFEXOR-XR) 37.5 MG 24 hr capsule 03/24/2022 Active lisinopril (PRINIVIL) 20 MG tablet 02/14/2022 Active HYDROcodone-delores taminophen (NORCO) 5-325 MG tablet TAKE 1 TABLET BY MOUTH EVERY 4 HOURS NEEDED FOR PAIN RATED 4 TO 6 05/04/2022 Active lisinopril (PRINIVIL) 10 MG tablet 04/26/2022 Active Active Problems Problem Noted Date Diagnosed Date Anxiety 05/24/2022 Graves disease 05/24/2022 Hypertension 05/24/2022 Hypothyroid 05/24/2022 Obesity 05/24/2022 POTS (postural orthostatic tachycardia syndrome) 05/24/2022 DVT (deep venous thrombosis) ([facility]) 1 03/13/2021 Family History Medical History Relation Comments Lung Cancer Father Relation Status Comments Father Social History Tobacco Use Types Packs/Day Years Used Date Smoking Tobacco: Former Cigarettes Tobacco Cessation:Counseling Given: Not Answered Alcohol Use Standard Drinks/Week Comments Yes 0 (1 standard drink = 0.6 oz pur e alcohol) moderate Comments Unknown Sex and Gender Information Value Date Recorded Sex Assigned at Not on file Legal Sex Female 8:15 AM SMOKE INSPECTOR Gender Identity Not on file Sexual Orientation Not on file Last Filed Vital Signs Vital Sign Reading Time Taken Comments Blood Pressure 124/70 05/24/2022 11:53 AM CDT Pulse 78 05/24/2022 11:53 AM CDT Temperature - - Respiratory Rate - - Oxygen Saturation - - Inhaled Oxygen Concentration - - Weight 147.5 kg (325 lb 3.2 oz) 023 11:53 AM CDT Height - - Body Mass Index - - Plan of Treatment Health Maintenance Due Date Last Done Comments Cervical Cancer Screening Pa p Smear (Age 30 to 64) Every 3 Years 1965 Colorectal Cancer Screening Colonoscopy (10 Years) 1965 Annual Physical 1968 Hepatitis C 05/06/1983 DTaP, Tdap and Td Vaccines ( 1 - Tdap) 1984 Cervical Cancer Screening Pa p with HPV Testing (Age 30 to 64) Every 5 Years 05/06/1995 Cervical Cancer Screening nc th HPV 05/06/1995 Mammogram Screening 2005 Pneumococcal Vaccine: 50+ Years (1 of 1 - PCV) 05/06/2015 Zoster Vaccines (1 of 2) 05/06/2015 COVID-19 Vaccine (2023-2 5 season) 2023 11/19/2020, 02/20/2020, 01/30/2020 Meningococcal B Vaccine Aged Out No l onger eligible based on patient's age to complete this topic Meningococcal Vaccine Aged Out No earnestine carlos eligible based on patient's age to complete this topic RSV Immunizations Under 20 Months Aged Out No longer eligible b ased on patient's age to complete this topic Insurance [employer] Care Teams Crusher Foreman Relationship Specialty Start Date End Date Esha Julio PA [address] [place], [place] [id number] PCP - General PHYSICIAN SENIOR SALES REPRESENTATIVE 03/15/22
--- OUTSIDE RECORDS SUMMARY | 2024-06-18 09:06 | XMS_ITS | Encounter Summary ---
Author Organization [employer] Address [address] [place] [address] Care Team Providers Care Partner Manager Name Role Phone Johnny Garrett MD Primary Care Provider [phone] Encounter Details Date Type Department Care Team (Late st Contact Info) Description 06/18/1999 Outpatient Historical [facility] MC[facility], & Indio Hudson MD Social History Tobacco Use Types Packs/Day Years Used Date Smoking Tobacco: Never Assessed Comments Unknown Sex and Gender Information Value Date Recorded Sex Assigned at Not on file Legal Sex Female 2:48 AM ECONOMIC FORECASTER Gender Identity Not on file Sexual Orientation Not on file documented as of this encounter Plan of Treatment Not on file documented as of this encounter Visit Diagnoses Not on filedocumented in this encounter Care Teams Partner Manager Relationship Specialty Start Date End Date Jhonny Garrett MD [address] [place] [phone] PCP - General Family Practice 03/12/23 documented as of this encounter
--- OUTSIDE RECORDS SUMMARY | 2024-06-18 09:06 | XMS_ITS ---
Author Organization [facility] Address [address] [facility] [address] [place] [address] Care Team Providers Care Appliance Service Technician Name Role Phone LOUIE MENDENHALL Unavailable [phone] Medications Medication SIG (Take, Route, Frequency, Duration) [...] 5 MCG Oral for 30 Days Active Encounters Encounter Location Date Provider Diagnosis [facility] [address] [facility] [address] [place], [place] [id number] 06/16/2024 LOUIE MENDENHALL Plan Of Treatment Next Appt Details Provider Name:LOUIE MCWILLIAMS, 06/23/2024 11:30:00 AM, [address] [place] [address], [id number], Progress Notes * Kristel CONNERDOB:1965 (59 yo F)Acc No.[id number]:06/16/2024 Patient: Em BOBOKristel Provider: Manuela Mendenhall MD :1965 A ge:59 Y S ex:Female Date:06/16/2024 Address:[address] [place], [place] [id number] Subjective: * Chief Complaints: * * Medical History: * Medications: T aking Xanax 0.5 MG Tablet 1 tablet Orally Twice a day , Taking Metoprolol Tartrate 50 MG Tablet Oral , Taking Levothyroxine Sodium 125 MCG Tablet Oral , Taking Liothyronine Sodium 5 MCG Tablet Oral , Taking Eliquis 5 MG Tablet Oral , Taking Venlafaxine HCl ER 37.5 MG Capsule Extended Release 24 Hour Oral , Taking Lisinopril 20 MG Tablet Oral , Taking Semaglutide-Weight Management 1 MG/0.5ML Solution Auto-injector 1 mg Subcutaneous weekly , Notes to Pharmacist: invoickarla hamlin,deliver to pts home,2 cc of semaglutide,1 mg qweek Objective: * Vitals: Assessment: Plan: * Treatment: * * Electronic signature of KIKO MENDENHALL MD on 06/18/2024 at 09:06 AM CDT Sign off status: Pending * Provider: Manuela Mendenhall MD Date: 06/16/2024 Generated for Paul cheng/Pilar/Stacia on: 06/18/2024 09:06 AM CDT
--- OUTSIDE RECORDS SUMMARY | 2024-06-18 09:06 | XMS_ITS | Encounter Summary ---
Author Organization [employer] Address [address] [place] [address] Care Team Providers Care Porcelain Enamel Sprayer Name Role Phone Jhonny Garrett MD Primary Care Provider [phone] Encounter Details Date Type Department Care Team (Late st Contact Info) Description 07/19/1999 Outpatient Historical [facility] MCLEAN, & Indio Hudson MD Social History Tobacco Use Types Packs/Day Years Used Date Smoking Tobacco: Never Assessed Comments Unknown Sex and Gender Information Value Date Recorded Sex Assigned at Not on file Legal Sex Female 2:48 AM NETWORK INFRASTRUCTURE ARCHITECT Gender Identity Not on file Sexual Orientation Not on file documented as of this encounter Plan of Treatment Not on file documented as of this encounter Visit Diagnoses Not on filedocumented in this encounter Care Teams Porcelain Enamel Sprayer Relationship Specialty Start Date End Date Jhonny Garrett MD [address] [place] [phone] PCP - General Family Practice 03/12/23 documented as of this encounter
--- OUTSIDE RECORDS SUMMARY | 2024-06-18 09:06 | XMS_ITS | Encounter Summary ---
Author Organization [employer] Address [address] [place] [address] Care Team Providers Care Merchandising Lead Name Role Phone Jhonny Garrett MD Primary Care Provider [phone] Encounter Details Date Type Department Care Team (Late st Contact Info) Description 05/15/2000 Outpatient Historical HIS [facility] JANI BENJAMIN, & Indio Hudson MD Social History Tobacco Use Types Packs/Day Years Used Date Smoking Tobacco: Never Assessed Comments Unknown Sex and Gender Information Value Date Recorded Sex Assigned at Not on file Legal Sex Female 2:48 AM PROPERTY MANAGER Gender Identity Not on file Sexual Orientation Not on file documented as of this encounter Plan of Treatment Not on file documented as of this encounter Visit Diagnoses Not on filedocumented in this encounter Care Teams Merchandising Lead Relationship Specialty Start Date End Date Jhonny Garrett MD [address] [place] [phone] PCP - General Family Practice 03/12/23 documented as of this encounter
--- OUTSIDE RECORDS SUMMARY | 2024-06-18 09:06 | XMS_ITS | Encounter Summary ---
Author Organization [employer] Address [address] [place] [address] Care Team Providers Care Lump Maker Name Role Phone Jhonny Garrett MD Primary Care Provider [phone] Encounter Details Date Type Department Care Team (Late st Contact Info) Description 06/18/1999 Outpatient Historical [facility] JANI MCLEAN, & Indio Hudson MD Social History Tobacco Use Types Packs/Day Years Used Date Smoking Tobacco: Never Assessed Comments Unknown Sex and Gender Information Value Date Recorded Sex Assigned at Not on file Legal Sex Female 2:48 AM FLOOR WORKER WELL SERVICE Gender Identity Not on file Sexual Orientation Not on file documented as of this encounter Plan of Treatment Not on file documented as of this encounter Visit Diagnoses Not on filedocumented in this encounter Care Teams Lump Maker Relationship Specialty Start Date End Date Jhonny Garrett MD [address] [place] [phone] PCP - General Family Practice 03/12/23 documented as of this encounter
--- OUTSIDE RECORDS SUMMARY | 2024-06-18 09:06 | XMS_ITS | Encounter Summary ---
Author Organization [employer] Address [address] [place] [address] Care Team Providers Care Caser In Name Role Phone Jhonny Garrett MD Primary Care Provider [phone] Encounter Details Date Type Department Care Team (Late st Contact Info) Description 09/29/1999 Outpatient Historical [facility] JANI MCLEAN, & Indio Hudson MD Social History Tobacco Use Types Packs/Day Years Used Date Smoking Tobacco: Never Assessed Comments Unknown Sex and Gender Information Value Date Recorded Sex Assigned at Not on file Legal Sex Female 2:48 AM QC SCIENTIST Gender Identity Not on file Sexual Orientation Not on file documented as of this encounter Plan of Treatment Not on file documented as of this encounter Visit Diagnoses Not on filedocumented in this encounter Care Teams Caser In Relationship Specialty Start Date End Date Jhonny Garrett MD [address] [place] [phone] PCP - General Family Practice 03/12/23 documented as of this encounter
--- OUTSIDE RECORDS SUMMARY | 2024-06-18 09:06 | XMS_ITS | Referral Summary ---
Author Organization [facility] [address] [facility] Address [address] [place] [address] Care Team Providers Care Infant Childcare Provider Name Role Phone Zehra Sneed Primary Care Provider Unavailabl e Indio Bellamy MD Unavailable [phone] Jhonny Garrett MD Unavailable [phone] Allergies Active Allergy Reactions Criticality Noted Date [...] hypothyroidism 06/28/2013 Overview (05/19/2016): POSTABLAT HYPOTHYR NEC Social History Tobacco Use Types Packs/Day Years Used Date Smoking Tobacco: Never Smokeless Tobacco: Never Tobacco Cessation:Counseling Given: Not Answered Alcohol Use Standard Drinks/Week Comments Yes 0 (1 standard drink = 0.6 oz pur e alcohol) Comments Unknown Sex and Gender Information Value Date Recorded Sex Assigned at Not on file Legal Sex Female 10:34 AM BRANCH LIBRARY CLERK Gender Identity Not on file Sexual Orientation Not on file Last Filed Vital Signs Vital Sign Reading Time Taken Comments Blood Pressure 125/80 12/19/2023 9:01 AM BRANCH LIBRARY CLERK Pulse 89 12/19/2023 9:01 AM BRANCH LIBRARY CLERK Temperature 36.7 C (98.1 F) 12/19/2023 9:01 AM BRANCH LIBRARY CLERK Respiratory Rate - - Oxygen Saturation 95% 03/10/2022 11: 01 AM BRANCH LIBRARY CLERK Inhaled Oxygen Concentration - - Weight 141.2 kg (311 lb 3.2 oz) 12/19/2023 9:01 AM BRANCH LIBRARY CLERK Height 177.8 cm (5' 10 ) 12/19/2023 9:01 AM BRANCH LIBRARY CLERK Body Mass Index 44.65 12/19/2023 9:01 AM BRANCH LIBRARY CLERK Plan of Treatment Not on file Insurance [facility] H[facility]/PPO Address: [address] [facility] H[facility]PPO Address: [place] [id number] [facility] H[facility]/PPO Address: [address] [address] [facility] HMO/PPO Address: [place] [id number] [facility] CORE Care Teams Infant Childcare Provider Relationship Specialty Start Date End Date Zehra Sneed PCP - General Pediatric Cardiology 10/24/23 Indio Bellamy MD [address] [place] [address] 01/18/22 Jhonny Garrett MD [address] [place] [address] Referring Physician Family Medicine 06/01/22
--- OUTSIDE RECORDS SUMMARY | 2024-06-18 09:06 | XMS_ITS | Encounter Summary ---
Author Organization [employer] Address [address] [place] [address] Care Team Providers Care Sales Service Promoter Name Role Phone Jhonny Garrett MD Primary Care Provider [phone] Encounter Details Date Type Department Care Team (Late st Contact Info) Description 07/29/1999 Outpatient Historical [facility] JANI MCLEAN, & Indio Hudson MD Social History Tobacco Use Types Packs/Day Years Used Date Smoking Tobacco: Never Assessed Comments Unknown Sex and Gender Information Value Date Recorded Sex Assigned at Not on file Legal Sex Female 2:48 AM COOKER SULFATE Gender Identity Not on file Sexual Orientation Not on file documented as of this encounter Plan of Treatment Not on file documented as of this encounter Visit Diagnoses Not on filedocumented in this encounter Care Teams Sales Service Promoter Relationship Specialty Start Date End Date Jhonny Garrett MD [address] [place] [phone] PCP - General Family Practice 03/12/23 documented as of this encounter
--- OUTSIDE RECORDS SUMMARY | 2024-06-18 09:06 | XMS_ITS | Encounter Summary ---
Author Organization [employer] Address [address] [place] [address] Care Team Providers Care Mapping Pilot Name Role Phone Jhonny Garrett MD Primary Care Provider [phone] Encounter Details Date Type Department Care Team (Late st Contact Info) Description 04/12/1998 Outpatient Historical [facility] AJNI MCLEAN, & Indio Hudson MD Social History Tobacco Use Types Packs/Day Years Used Date Smoking Tobacco: Never Assessed Comments Unknown Sex and Gender Information Value Date Recorded Sex Assigned at Not on file Legal Sex Female 2:48 AM INTERNET MARKETING MANAGER Gender Identity Not on file Sexual Orientation Not on file documented as of this encounter Plan of Treatment Not on file documented as of this encounter Visit Diagnoses Not on filedocumented in this encounter Care Teams Mapping Pilot Relationship Specialty Start Date End Date Jhonny Garrett MD [address] [place] [phone] PCP - General Family Practice 03/12/23 documented as of this encounter
--- OUTSIDE RECORDS SUMMARY | 2024-06-18 09:06 | XMS_ITS ---
Author Organization [facility] Address [address] [facility] [address] [place] [address] Care Team Providers Care Quantitative Consultant Name Role Phone ZA LOUIE Unavailable [phone] REASON FOR VISIT pre cert left varithena Encounters Encounter Location Date Provider Diagnosis [address] [phone] 06/09/2024 LOUIE MENDENHALL Plan Of Treatment Next Appt Details Provider Name:LOUIE MCWILLIAMS, 06/23/2024 11:30:00 AM, [address] [place] [address], [phone], Progress Notes * JACKIEKristel VERADOB:1965 (59 yo F)Acc No.[id number]:06/09/2024 Patient: Kirstel HALL Provider: Manuela Mendenhall MD :1965 A ge:59 Y S ex:Female Date:06/09/2024 Address:[address] [place], [place] [phone] Subjective: * Chief Complaints: * 1 . Pre cert left varithena. * Medical History: Objective: * Vitals: Assessment: Plan: * Treatment: * * Electronic signature of KIKO MENDENHALL MD on 06/18/2024 at 09:05 AM CDT Sign off status: Pending * Provider: Manuela Mendenhall MD Date: 06/09/2024 Generated for Paul cheng/Pilar/Stacia on: 06/18/2024 09:05 AM CDT
--- OUTSIDE RECORDS SUMMARY | 2024-06-18 09:06 | XMS_ITS | Encounter Summary ---
Author Organization [employer] Address [address] [place] [address] Care Team Providers Care Steam Conditioner Operator Name Role Phone Jhonny Garrett MD Primary Care Provider [phone] Encounter Details Date Type Department Care Team (Late st Contact Info) Description 04/06/1998 Outpatient Historical [facility] J[facility] MCLEAN, & Indio Hudson MD Social History Tobacco Use Types Packs/Day Years Used Date Smoking Tobacco: Never Assessed Comments Unknown Sex and Gender Information Value Date Recorded Sex Assigned at Not on file Legal Sex Female 2:48 AM SOFTWARE ENGINEER KERNEL Gender Identity Not on file Sexual Orientation Not on file documented as of this encounter Plan of Treatment Not on file documented as of this encounter Visit Diagnoses Not on filedocumented in this encounter Care Teams Steam Conditioner Operator Relationship Specialty Start Date End Date Jhonny Garrett MD [address] [place] [phone] PCP - General Family Practice 03/12/23 documented as of this encounter
--- OUTSIDE RECORDS SUMMARY | 2024-06-18 09:06 | XMS_ITS | Encounter Summary ---
Author Organization [employer] Address [address] [place] [address] Care Team Providers Care Dryer Feeder Name Role Phone Jhonny Garrett MD Primary Care Provider [phone] Encounter Details Date Type Department Care Team (Late st Contact Info) Description 03/08/2000 Outpatient Historical [facility] JANI MCLEAN, & Indio Hudson MD Social History Tobacco Use Types Packs/Day Years Used Date Smoking Tobacco: Never Assessed Comments Unknown Sex and Gender Information Value Date Recorded Sex Assigned at Not on file Legal Sex Female 2:48 AM SPRING WINDER Gender Identity Not on file Sexual Orientation Not on file documented as of this encounter Plan of Treatment Not on file documented as of this encounter Visit Diagnoses Not on filedocumented in this encounter Care Teams Dryer Feeder Relationship Specialty Start Date End Date Jhonny Garrett MD [address] [place] [phone] PCP - General Family Practice 03/12/23 documented as of this encounter
--- OUTSIDE RECORDS SUMMARY | 2024-06-18 09:06 | XMS_ITS | Encounter Summary ---
Author Organization [facility] Address [address] [place] [address] Care Team Providers Care Sports Therapist Name Role Phone Esha Julio Primary Care Provider [phone] Encounter Details Date Type Department Care Team (Late st Contact Info) Description 04/18/2022 [facility], [address] [address] Brennan Flores [place] Social History Tobacco Use Types Packs/Day Years Used Date Smoking Tobacco: Former Cigarettes Alcohol Use Standard Drinks/Week Comments Yes 0 (1 standard drink = 0.6 oz pur e alcohol) moderate Comments Unknown Sex and Gender Information Value Date Recorded Sex Assigned at Not on file Legal Sex Female 8:15 AM GUN SYNCHRONIZER Gender Identity Not on file Sexual Orientation Not on file documented as of this encounter Plan of Treatment Not on file documented as of this encounter Procedures Procedure Name Priority Date/Time Associated Diagnosis Comments COMPREHENSIVE METABOLIC PANEL Routine 01/26/2022 MAGNESIUM Routine 01/24/2022 CBC, MANUAL DIFF Routine 01/23/2022 documented in this encounter Results * COMPREHENSIVE METABOLIC PANEL (01/26/2022) SODIUM S/P/B 130 GLUCOSE 100 mg/dL AST 39 BUN 12 CREATININE S/P/B 0.80 0.5 - 1.0 CALCIUM S/P/B 8.1 POTASSIUM S/P/B 3.8 CHLORIDE S/P/B 95 ALT 29 GFR ESTIMATE >60 us Default History Genericprovider LABORATORY Final Result * MAGNESIUM (01/24/2022) MAGNESIUM 2.2 us Default History Genericprovider LABORATORY Final Result * CBC, MANUAL DIFF (01/23/2022) WBC 12.5 HGB 10.1 HCT 30.8 PLT 343 us Default History Genericprovider LABORATORY Final Result documented in this encounter Visit Diagnoses Not on filedocumented in this encounter Care Teams Sports Therapist Relationship Specialty Start Date End Date Esha Julio PA [address] [place] [address] PCP - General PHYSICIAN GOLF COURSE EQUIPMENT OPERATOR 03/15/22 documented as of this encounter
[2024-06-18 10:06] LABS: Basophils Percent Auto 0.3 % (0.2-1.2); Eosinophils Absolute Auto 0.2 K/mm3 (0-0.3); Eosinophils Percent Auto 5.3 % (0-4.4); Hematocrit 34.6 % (37.0-47.0); Hemoglobin 11.3 g/dL (12.0-15.0); Immature Granulocyte Absolute 0.25 K/mm3 (0.00-0.031); Lymphocytes Absolute Auto 1.45 K/mm3 (0.9-3.2); Lymphocytes Percent Auto 40.5 % (18.3-44.2); Mean Corpuscular HGB Conc 32.7 g/dl (32-36); Mean Corpuscular Hemoglobin 31.8 pg (26-34); Mean Corpuscular Volume 97.5 fl (80-100); Mean Platelet Volume 10.1 fl (7.4-10.4); Monocytes Absolute Auto 0.5 K/mm3 (0.1-0.6); Neutrophils Absolute Auto 1.2 K/mm3 (1.3-6.7); Neutrophils Percent Auto 32.9 % (45.5-73.1); Platelet Count Result 194 k/mm3 (150-375); Red Blood Count 3.55 M/mm3 (4.2-5.4); Red Cell Distribution Width 13.3 % (11.5-14.5); White Blood Count 3.6 K/mm3 (4.5-10.0)
[2024-06-18 10:18] LABS: Alanine Aminotransferase 23 U/L (6-35); Albumin Level 4.4 g/dL (3.5-5.1); Alkaline Phosphatase 55 U/L (38-126); Anion Gap 9 mmol/L (4-12); Aspartate Amino Transferase 29 U/L (14-36); Bilirubin,Total 0.7 mg/dL (0.2-1.3); Blood Urea Nitrogen 16 mg/dL (7-17); Calcium 9.1 mg/dL (8.4-10.2); Carbon Dioxide 28 mmol/L (22-30); Chloride 100 mmol/L (98-107); Cholesterol 220 mg/dL (0-200); Estimated Glomerular Filt Rate 54; Glucose 92 mg/dL (65-110); HDL Direct 48 mg/dL; Potassium 4.3 mmol/L (3.4-5.0); Sodium 137 mmol/L (137-145); Triglycerides 69 mg/dL (<150)
[2024-06-18 10:29] LABS: LDL Cholesterol Direct 128 mg/dL
[2024-06-18 10:29] LABS: Hemoglobin A1C 5.3 % (<5.7)
[2024-06-18 10:43] LABS: Hypochromasia 1+; Platelet Estimate Adequate (Adequate); Schistocytes None Seen
[2024-06-18 10:44] LABS: Atypical Lymphocytes Present; Free T4 Free Thyroxine 2.16 ng/dL (0.78-2.19)
[2024-06-18 10:48] LABS: Thyroid Stimulating Hormone 0.064 uIU/mL (0.465-4.680)
== END 2024-06-18 08:51 | disposition home or self-care (01) ==
LOC: ANHLAB 08:52
PROVIDERS: Internal Medicine; PCP Nurse Practitioner Family; Visit Provider Nurse Practitioner Family
DX: Z13.6 Encounter for screening for cardiovascular disorders (principal); R73.03 Prediabetes; D64.9 Anemia, unspecified; E03.9 Hypothyroidism, unspecified; I10 Essential (primary) hypertension
CPT/HCPCS: 36415; 80053; 80061; 83036; 84439; 84443; 85025

== ENCOUNTER 2024-12-09 09:18 | Outpatient (CLI) | payer OTHER, SELFPAY ==
--- OUTSIDE RECORDS SUMMARY | 2024-03-16 02:55 | XMS_ITS ---
Author Organization [facility] Address [address] [place] [address] Care Team Providers Care Cinder Worker Name Role Phone LOUIE MENDENHALL Unavailable [phone] Medications Medication SIG (Take, Route, Frequency, Duration) Notes Start Date End Date Status Xanax 0.5 MG Tablet 1 tablet Orally Twic e a day Active Lisinopril 20 MG Tablet Oral; Duration: 30 Days Active Liothyronine Sodium 5 MCG Tablet Oral; Duration: 30 Days Acti ve Levothyroxine Sodium 125 MCG Tablet Oral; Duration: 30 Days Acti ve Metoprolol Tartrate 50 MG Tablet Oral; Duration: 30 Days Acti ve Venlafaxine HCl ER 37.5 MG Capsule Extended Release 24 Hour Oral; Duration: 30 Days Acti ve Eliquis 5 MG Tablet Oral; Duration: 30 Days Active Encounters Encounter Location Date Provider Diagnosis [address] [id number] 03/16/2024 LOUIE MENDENHALL Plan Of Treatment No Information Progress Notes * SALIMAKristel OSORIODOB:1965 (59 yo F)Acc No.[id number]:03/16/2024 Patient: Kristel Troy Provider: Manuela Mendenhall MD :1965 A ge:58 Y S ex:Female Date:03/16/2024 Address:[address] [place], [place] [id number] Subjective: * Chief Complaints: * Medications: T akingXanax 0.5 MG Tablet 1 tablet Orally Twice a day Metoprolol Tartrate 50 MG Tablet Oral Levothyroxine Sodium 125 MCG Tablet Oral Liothyronine Sodium 5 MCG Tablet Oral Eliquis 5 MG Tablet Oral Venlafaxine HCl ER 37.5 MG Capsule Extended Release 24 Hour Oral Lisinopril 20 MG Tablet Oral Taking Xanax 0.5 MG Tablet 1 tablet Orally Twice a day Taking Metoprolol Tartrate 50 MG Tablet Oral Taking Levothyroxine Sodium 125 MCG Tablet Oral Taking Liothyronine Sodium 5 MCG Tablet Oral Taking Eliquis 5 MG Tablet Oral Taking Venlafaxine HCl ER 37.5 MG Capsule Extended Release 24 Hour Oral Taking Lisinopril 20 MG Tablet Oral * Electronic signature of KIKO MENDENHALL MD on 12/09/2024 at 10:10 AM CDT Sign off status: Pending * Provider: Manuela Mendenhall MD Date: 0 03/16/2024 Generated for Paul cheng/Pilar/Stacia on: 1 10:10 AM CDT
--- OUTSIDE RECORDS SUMMARY | 2024-06-09 13:15 | XMS_ITS ---
Author Organization [facility] Address [address] [place] [address] Care Team Providers Care Credit Reference Clerk Name Role Phone LOUIE MENDENHALL Unavailable [phone] REASON FOR VISIT pre cert left varithena Encounters Encounter Location Date Provider Diagnosis [address] [id number] 06/09/2024 LOUIE MENDENHALL Plan Of Treatment No Information Progress Notes * JACKIEKristel VERADOB:1965 (59 yo F)Acc No.[id number]:06/09/2024 Patient: Kristel Troy Provider: Manuela Mendenhall MD :1965 A ge:59 Y S ex:Female Date:06/09/2024 Address:[address] [place], [place] [phone] Subjective: * Chief Complaints: * P re cert left varithena * Electronic signature of KIKO MENDENHALL MD on 12/09/2024 at 10:10 AM CDT Sign off status: Pending * Provider: Manuela Mendenhall MD Date: 0 06/09/2024 Generated for Paul cheng/Pilar/eTransmitting on: 1 10:10 AM CDT
--- OUTSIDE RECORDS SUMMARY | 2024-06-16 01:45 | XMS_ITS ---
Author Organization [facility] Address [address] [place] [address] Care Team Providers Care Circle Beveler Name Role Phone LOUIE MENDENHALL Unavailable [phone] Medications Medication SIG (Take, Route, Frequency, Duration) Notes Start Date End Date Status Lisinopril 20 MG Tablet Oral; Duration: 30 Days Active Venlafaxine HCl ER 37.5 MG Capsule Extended Release 24 Hour Oral; Duration: 30 Days Active Semaglutide-Weight Management 1 MG/0.5ML Solution Auto-injector 1 mg Subcutaneous weekly; Duration: [address] hamlin,deliver to pts home,2 cc of semaglutide,1 mg qweek 03/24/2024 Active Metoprolol Tartrate 50 MG Tablet Oral; Duration: 30 Days Active Xanax 0.5 MG Tablet 1 tablet Orally Twic e a day Active Levothyroxine Sodium 125 MCG Tablet Oral; Duration: 30 Days Active Eliquis 5 MG Tablet Oral; Duration: 30 Days Active Liothyronine Sodium 5 MCG Tablet Oral; Duration: 30 Days Active Encounters Encounter Location Date Provider Diagnosis [facility] [address] [place] [address] 06/16/2024 LOUIE MENDENHALL Plan Of Treatment No Information Progress Notes * Kristel JESUSDOB:1965 (59 yo F)Acc No.[id number]:06/16/2024 Patient: Kristel Troy Provider: Manuela Mendenhall MD :1965 A ge:59 Y S ex:Female Date:06/16/2024 Address:[address] [place], [place] [id number] Subjective: * Chief Complaints: * Medications: T akingXanax 0.5 MG Tablet 1 tablet Orally Twice a day Metoprolol Tartrate 50 MG Tablet Oral Levothyroxine Sodium 125 MCG Tablet Oral Liothyronine Sodium 5 MCG Tablet Oral Eliquis 5 MG Tablet Oral Venlafaxine HCl ER 37.5 MG Capsule Extended Release 24 Hour Oral Lisinopril 20 MG Tablet Oral Semaglutide-Weight Management 1 MG/0.5ML Solution Auto-injector 1 mg Subcutaneous weekly , Notes to Pharmacist: amari hamlin,deliver to pts home,2 cc of semaglutide,1 mg qweekTaking Xanax 0.5 MG Tablet 1 tablet Orally Twice a day Taking Metoprolol Tartrate 50 MG Tablet Oral Taking Levothyroxine Sodium 125 MCG Tablet Oral Taking Liothyronine Sodium 5 MCG Tablet Oral Taking Eliquis 5 MG Tablet Oral Taking Venlafaxine HCl ER 37.5 MG Capsule Extended Release 24 Hour Oral Taking Lisinopril 20 MG Tablet Oral Taking Semaglutide-Weight Management 1 MG/0.5ML Solution Auto-injector 1 mg Subcutaneous weekly , Notes to Pharmacist: amari hamlin,deliver to pts home,2 cc of semaglutide,1 mg qweek * Electronic signature of KIKO MENDENHALL MD on 12/09/2024 at 10:10 AM CDT Sign off status: Pending * Provider: Manuela Mendenhall MD Date: 0 06/16/2024 Generated for Paul cheng/Pilar/Stacia on: 10:10 AM CDT
--- OUTSIDE RECORDS SUMMARY | 2024-09-08 06:15 | XMS_ITS ---
Author Organization [facility] Address [address] [place] [address] Care Team Providers Care Sheriff'S Officer Name Role Phone LOUIE MENDENHALL Unavailable [phone] Encounters Encounter Location Date Provider Diagnosis [address] [address] 09/08/2024 LOUIE MENDENHALL Plan Of Treatment No Information Progress Notes * SALIMAKristel OSORIODOB:1965 (59 yo F)Acc No.[id number]:09/08/2024 Patient: Kristel Troy Provider: Manuela Mendenhall MD :1965 A ge:59 Y S ex:Female Date:09/08/2024 Address:[address] [place], [place] [id number] * Electronic signature of KIKO MENDENHALL MD on 12/09/2024 at 10:11 AM CDT Sign off status: Pending * Provider: Manuela Mendenhall MD Date: 0 09/08/2024 Generated for Virgilioi syklar/Pilar/eTransmitting on: 1 10:11 AM CDT
--- OUTSIDE RECORDS SUMMARY | 2024-10-06 06:15 | XMS_ITS ---
Author Organization [facility] Address [address] [place] [address] Care Team Providers Care Campaign Marketing Specialist Name Role Phone LOUIE MENDENHALL Unavailable [phone] REASON FOR VISIT 1 month f/u Encounters Encounter Location Date Provider Diagnosis [facility] [address] [place] [id number] 10/06/2024 LOUIE MENDENHALL Plan Of Treatment No Information Progress Notes * SALIMAKristel OSORIODOB:1965 (59 yo F)Acc No.[id number]:10/06/2024 Progress Notes Patient: Kristel Troy Provider: Manuela Mendenhall MD :1965 A ge:59 Y S ex:Female Date:10/06/2024 Address:[address] [place], [place] [id number] Subjective: * Chief Complaints: * 1 month f/u * Electronic signature of KIKO MENDENHALL MD on 12/09/2024 at 10:10 AM CDT Sign off status: Pending * Provider: Manuela Mendenhall MD Date: 0 10/06/2024 Generated for Paul cheng/Pilar/eTransmitting on: 1 10:10 AM CDT
--- OUTSIDE RECORDS SUMMARY | 2024-11-14 08:15 | XMS_ITS ---
Author Organization [facility] Address [address] [place] [address] Care Team Providers Care Oil Burner Mechanic Name Role Phone LOUIE MENDENHALL Unavailable [phone] Encounters Encounter Location Date Provider Diagnosis [address] [place] [address] 11/14/2024 LOUIE MENDENHALL Plan Of Treatment No Information Progress Notes * SALIMAKristel OSORIODOB:1965 (59 yo F)Acc No.[id number]:11/14/2024 Progress Notes Patient: Kristel Troy Provider: Manuela Mendenhall MD :1965 A ge:59 Y S ex:Female Date:11/14/2024 Address:[address] [place], [place] [id number] * Electronic signature of KIKO MENDENHALL MD on 12/09/2024 at 10:11 AM CDT Sign off status: Pending * Provider: Manuela Mendenhall MD Date: 1 Generated for Paul cheng/Pilar/eTransmitting on: 10:11 AM CDT
--- OUTSIDE RECORDS SUMMARY | 2024-12-09 10:10 | XMS_ITS | Patient Health Record ---
Author Organization [facility] Address [address] [place] [address] Care Team Providers Care Flight Physician Name Role Phone LOUIE MENDENHALL Unavailable [phone] Allergies Allergen (clinical drug ingredient) Drug/Non Drug Allergy documented on EMR Reaction Allergy Type Onset Date Status Contrast Allergy PreMed Pack Unknown Drug Allergy Active Reason For Referral No Information Medications Medication SIG (Take, Route, Frequency, Duration) Notes Start Date End Date Status Venlafaxine HCl ER 37.5 MG Capsule Extended Release 24 Hour Oral; Duration: 30 Days Active Eliquis 5 MG Tablet Oral; Duration: 30 Days Active Semaglutide-Weight Management 1 MG/0.5ML Solution Auto-injector 1 mg Subcutaneous weekly; Duration: [address] hamlin,deliver to pts home,2 cc of semaglutide,1 mg qweek 03/24/2024 Active Semaglutide-Weight Management 1.7 MG/0.75ML Solution Auto-injector 2 mg[75 units]L Subcutaneous weekly; Duration: [address] hamlin,deliver to pts house soon,3 cc semaglut 08/18/2024 Active Lisinopril 20 MG Tablet Oral; Duration: 30 Days Active Metoprolol Tartrate 50 MG Tablet Oral; Duration: 30 Days Active Liothyronine Sodium 5 MCG Tablet Oral; Duration: 30 Days Active Levothyroxine Sodium 125 MCG Tablet Oral; Duration: 30 Days Active Xanax 0.5 MG Tablet 1 tablet Orally Twice a day Active Social History Section Notes: ,one kid,no tabacco/e lia abuse Problems Problem Type SNOMED Code ICD Code Onset Dates Problem Status W/U Status Risk Notes Problem Morbid obesity (disorder) (330027131) Morbid (severe) obesity due to excess calories (E66.01) Active confirmed Problem Phlebitis and thrombophlebitis of iliac vein, 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) Active confirmed Problem Pain co-occurrent and due to varicose veins of bilateral legs ([id number] 23725) Varicose veins of bilateral lower extremities with pain (I83.813) Active confirmed Vital Signs Heart Rate 68 /min 08/11/2024 Respiratory Rate 16 /min 08/11/2024 Blood pressure diastolic 67 mm Hg 08/11/2024 Height 70 in 08/11/2024 Blood pressure systolic 132 mm Hg 08/11/2024 Weight 258 lbs 08/11/2024 BMI 37.02 kg/m2 08/11/2024 Encounters Encounter Location Date Provider Diagnosis [facility] [address] [place] [address] 01/09/2024 LOUIE ZA [address] [id number] 02/04/2024 LOUIE ZA [place] [address] [place] [place] [address] 02/15/2024 LOUIE ZA [address] [id number] 03/16/2024 LOUIE ZA [facility] [address] [place] [address] 06/16/2024 LOUIE ZA [facility] [address] [place] [address] 07/18/2024 LOUIE ZA [place] [address] [place] [address] 09/08/2024 LOUIE ZA [address] [id number] 10/06/2024 LOUIE ZA [place] [address] [place] [address] 11/14/2024 LOUIE ZA [facility] [address] [place] [address] 12/14/2023 LOUIE ZA Phlebitis and thrombophlebitis of iliac vein, bilateral I80.213 and Morbid (severe) obesity due to excess calories E66.01 [facility] [address] [place] [address] 01/07/2024 LOUIE ZA Phlebitis and thrombophlebitis of iliac vein, bilateral I80.213 and Morbid (severe) obesity due to excess calories E66.[address] [address] 02/15/2024 LOUIE ZA Phlebitis and thrombophlebitis of iliac vein, bilateral I80.213 and Morbid (severe) obesity due to excess calories E66.[address] [address] 03/24/2024 LOUIE ZA Phlebitis and thrombophlebitis of iliac vein, bilateral I80.213 ; Morbid (severe) obesity due to excess calories E66.01 and Lymphedema of both lower extremities I89.[address] [id number] 2024 LOUIE ZA Phlebitis and thrombophlebitis of iliac vein, bilateral I80.213 ; Morbid (severe) obesity due to excess calories E66.01 and Lymphedema of both lower extremities I89.[address] [id number] 06/23/2024 LOUIE ZA Phlebitis and thrombophlebitis of iliac vein, bilateral I80.213 ; Morbid (severe) obesity due to excess calories E66.01 ; Lymphedema of both lower extremities I89.0 ; Varicose veins of bilateral lower extremities with pain I83.813 and Pain in leg, unspecified M79.[address] [id number] 08/11/2024 LOUIE ZA Phlebitis and thrombophlebitis of iliac vein, bilateral I80.213 ; Morbid (severe) obesity due to excess calories E66.01 ; Lymphedema of both lower extremities I89.0 ; Varicose veins of bilateral lower extremities with pain I83.813 and Pain in leg, unspecified M79.606 [facility] [place] [address] 09/10/2024 LOUIE ZA [address] [id number] 12/10/2023 LOUIE ZA [address] [id number] 12/19/2023 LOUIE ZA [facility] [address] [place] [address] 01/07/2024 LOUIE ZA [facility] [address] [place] [address] 01/07/2024 LOUIE ZA [facility] [address] [place] [address] 01/26/2024 LOUIE ZA [facility] [address] [place] [address] 02/15/2024 LOUIE ZA [facility] [address] [place] [address] 02/29/2024 LOUIE ZA [facility] [address] [place] [address] 02/29/2024 LOUIE ZA [facility] [address] [place] [address] 03/24/2024 LOUIE ZA [facility] [address] [place] [address] 2024 LOUIE ZA [facility] [address] [place] [address] 2024 LOUIE [place] [facility] [address] [place] [address] 07/21/2024 LOUIE ZA [facility] [address] [place] [address] 11/16/2024 LOUIE ZA Assessments Encounter Date Diagnosis (ICD Code) Assessment Notes Treatment Notes Treatment Clinical Notes Section Notes 12/14/2023 Phlebitis and thrombophlebitis of iliac vein, [...] near future. Meanwhile will continue conservative therapy. 06/23/2024 Morbid (severe) obesity due to excess calories (ICD-10 - E66.01) Loosing weight,no se,cont with 1.7 mg weekly 06/23/2024 Phlebitis and thrombophlebitis of iliac vein, bilateral (ICD-10 - I80.213) 08/11/2024 Phlebitis and thrombophlebitis of iliac vein, bilateral (ICD-10 - I80.213) Stable 06/23/2024 Lymphedema of both lower extremities (ICD-10 - I89.0) better with wl 08/11/2024 Morbid (severe) obesity due to excess calories (ICD-10 - E66.01) Will increase semaglut totp 2 mg weekly,add opc,off lisinopril 02/15/2024 Morbid (severe) obesity due to excess [...] since she is loosing, Continue current therapy 12/14/2023 Morbid (severe) obesity due to excess [...] device? [YES or NO]will need le pump-pt-ot 06/23/2024 Varicose veins of bilateral lower extremities with pain (ICD-10 - I83.813) 08/11/2024 Lymphedema of both lower extremities (ICD-10 - I89.0) 06/23/2024 Pain in leg, unspecified (ICD-10 - M79.606) 08/11/2024 Varicose veins of bilateral lower extremities with pain (ICD-10 - I83.813) S/P successful left gsv varithena. Patient tolerated procedure well. Post procedure affected leg was wrapped with elastic GOOD bandage and compression stockings were applied. Post-procedure instructions given and patient voiced good understanding. Discharged home in good condition. 08/11/2024 Pain in leg, unspecified (ICD-10 - M79.606) Suspect arthritis,add opc=3 Plan Of Treatment Pending Test Test Name Order Date MRA/MRV Pelvis W and W/O Contrast 2023 Insurance Providers Payer Name Payer Address Payer Phone Subscriber Number Group Number Insured Name Patient Relationship to Insured Coverage Start Date Coverage End Date [facility] [address] [place] [id number] Kristel Conner Self - patient is the insured Medical (General) History Medical History History ICD Code pots obesity htn dvt
--- OUTSIDE RECORDS SUMMARY | 2024-12-09 10:11 | XMS_ITS | Encounter Summary ---
Author Organization [employer] Address [address] [place] [address] Care Team Providers Care Block Greaser Name Role Phone Jhonny Garrett MD Primary Care Provider [phone] Encounter Details Date Type Department Care Team (Late st Contact Info) Description 06/18/1999 Outpatient Historical [facility], & Indio Hudson MD Social History Tobacco Use Types Packs/Day Years Used Date Smoking Tobacco: Never Assessed Comments Unknown Sex and Gender Information Value Date Recorded Sex Assigned at Not on file Legal Sex Female 2:48 AM BACON SKIN LIFTER Gender Identity Not on file Sexual Orientation Not on file documented as of this encounter Plan of Treatment Not on file documented as of this encounter Visit Diagnoses Not on filedocumented in this encounter Care Teams Block Greaser Relationship Specialty Start Date End Date Jhonny Garrett MD [address] [place] [phone] PCP - General Family Practice 03/12/23 documented as of this encounter
--- OUTSIDE RECORDS SUMMARY | 2024-12-09 10:11 | XMS_ITS | Encounter Summary ---
Author Organization [employer] Address [address] [place] [address] Care Team Providers Care Marine Service Station Attendant Name Role Phone Jhonny Garrett MD Primary Care Provider [phone] Encounter Details Date Type Department Care Team (Late st Contact Info) Description 05/15/2000 Outpatient Historical [facility] JANI BENJAMIN, & Indio Hudson MD Social History Tobacco Use Types Packs/Day Years Used Date Smoking Tobacco: Never Assessed Comments Unknown Sex and Gender Information Value Date Recorded Sex Assigned at Not on file Legal Sex Female 2:48 AM SEAM RUBBER Gender Identity Not on file Sexual Orientation Not on file documented as of this encounter Plan of Treatment Not on file documented as of this encounter Visit Diagnoses Not on filedocumented in this encounter Care Teams Marine Service Station Attendant Relationship Specialty Start Date End Date Jhonny Garrett MD [address] [place] [phone] PCP - General Family Practice 03/12/23 documented as of this encounter
--- OUTSIDE RECORDS SUMMARY | 2024-12-09 10:11 | XMS_ITS | Encounter Summary ---
Author Organization [employer] Address [address] [place] [address] Care Team Providers Care Drawer In Dobby Loom Name Role Phone Jhonny Garrett MD Primary Care Provider [phone] Encounter Details Date Type Department Care Team (Late st Contact Info) Description 06/18/1999 Outpatient Historical [facility] MCLAEN, & Indio Hudson MD Social History Tobacco Use Types Packs/Day Years Used Date Smoking Tobacco: Never Assessed Comments Unknown Sex and Gender Information Value Date Recorded Sex Assigned at Not on file Legal Sex Female 2:48 AM MANAGER MERCHANDISING Gender Identity Not on file Sexual Orientation Not on file documented as of this encounter Plan of Treatment Not on file documented as of this encounter Visit Diagnoses Not on filedocumented in this encounter Care Teams Drawer In Dobby Loom Relationship Specialty Start Date End Date Jhonny Garrett MD [address] [place] [phone] PCP - General Family Practice 03/12/23 documented as of this encounter
--- OUTSIDE RECORDS SUMMARY | 2024-12-09 10:11 | XMS_ITS | Encounter Summary ---
Author Organization [employer] Address [address] [place] [address] Care Team Providers Care Compliance Engineer Products Name Role Phone Jhonny Garrett MD Primary Care Provider [phone] Encounter Details Date Type Department Care Team (Late st Contact Info) Description 03/19/1998 Outpatient Historical [facility] MCLEAN, & Indio Hudson MD Social History Tobacco Use Types Packs/Day Years Used Date Smoking Tobacco: Never Assessed Comments Unknown Sex and Gender Information Value Date Recorded Sex Assigned at Not on file Legal Sex Female 2:48 AM COMMERCIAL GREEN BUILDING ARCHITECT Gender Identity Not on file Sexual Orientation Not on file documented as of this encounter Plan of Treatment Not on file documented as of this encounter Visit Diagnoses Not on filedocumented in this encounter Care Teams Compliance Engineer Products Relationship Specialty Start Date End Date Jhonny Garrett MD [address] [place] [phone] PCP - General Family Practice 03/12/23 documented as of this encounter
--- OUTSIDE RECORDS SUMMARY | 2024-12-09 10:11 | XMS_ITS | Encounter Summary ---
Author Organization [employer] Address [address] [place] [address] Care Team Providers Care Tipple Boss Name Role Phone Jhonny Garrett MD Primary Care Provider [phone] Encounter Details Date Type Department Care Team (Late st Contact Info) Description 10/20/1997 Outpatient Historical [facility] Social History Tobacco Use Types Packs/Day Years Used Date Smoking Tobacco: Never Assessed Comments Unknown Sex and Gender Information Value Date Recorded Sex Assigned at Not on file Legal Sex Female 2:48 AM MANAGER DISCOVERY Gender Identity Not on file Sexual Orientation Not on file documented as of this encounter Plan of Treatment Not on file documented as of this encounter Visit Diagnoses Not on filedocumented in this encounter Care Teams Tipple Boss Relationship Specialty Start Date End Date Jhonny Garrett MD [address] [place] [phone] PCP - General Family Practice 03/12/23 documented as of this encounter
--- OUTSIDE RECORDS SUMMARY | 2024-12-09 10:11 | XMS_ITS | Encounter Summary ---
Author Organization [employer] Address [address] [place] [address] Care Team Providers Care Level Vial Inspector Name Role Phone Jhonny Garrett MD Primary Care Provider [phone] Encounter Details Date Type Department Care Team (Late st Contact Info) Description 09/29/1999 Outpatient Historical [facility] MCLEAN, & Indio Hudson MD Social History Tobacco Use Types Packs/Day Years Used Date Smoking Tobacco: Never Assessed Comments Unknown Sex and Gender Information Value Date Recorded Sex Assigned at Not on file Legal Sex Female 2:48 AM LIFTER Gender Identity Not on file Sexual Orientation Not on file documented as of this encounter Plan of Treatment Not on file documented as of this encounter Visit Diagnoses Not on filedocumented in this encounter Care Teams Level Vial Inspector Relationship Specialty Start Date End Date Jhonny Garrett MD [address] [place] [phone] PCP - General Family Practice 03/12/23 documented as of this encounter
--- OUTSIDE RECORDS SUMMARY | 2024-12-09 10:11 | XMS_ITS | Encounter Summary ---
Author Organization [employer] Address [address] [place] [address] Care Team Providers Care Check Examiner Name Role Phone Jhonny Garrett MD Primary Care Provider [phone] Encounter Details Date Type Department Care Team (Late st Contact Info) Description 07/19/1999 Outpatient Historical [facility] MCLEAN, & Indio Hudson MD Social History Tobacco Use Types Packs/Day Years Used Date Smoking Tobacco: Never Assessed Comments Unknown Sex and Gender Information Value Date Recorded Sex Assigned at Not on file Legal Sex Female 2:48 AM HEARING AID ASSISTANT Gender Identity Not on file Sexual Orientation Not on file documented as of this encounter Plan of Treatment Not on file documented as of this encounter Visit Diagnoses Not on filedocumented in this encounter Care Teams Check Examiner Relationship Specialty Start Date End Date Johnny Garrett MD [address] [place] [phone] PCP - General Family Practice 03/12/23 documented as of this encounter
--- OUTSIDE RECORDS SUMMARY | 2024-12-09 10:11 | XMS_ITS | Encounter Summary ---
Author Organization [employer] Address [address] [place] [address] Care Team Providers Care Rubber Flap Cutter Name Role Phone Jhonny Garrett MD Primary Care Provider [phone] Encounter Details Date Type Department Care Team (Late st Contact Info) Description 05/20/1999 Outpatient Historical [facility] MCLEAN, & Indio Hudson MD Social History Tobacco Use Types Packs/Day Years Used Date Smoking Tobacco: Never Assessed Comments Unknown Sex and Gender Information Value Date Recorded Sex Assigned at Not on file Legal Sex Female 2:48 AM METEOROLOGIST IN CHARGE Gender Identity Not on file Sexual Orientation Not on file documented as of this encounter Plan of Treatment Not on file documented as of this encounter Visit Diagnoses Not on filedocumented in this encounter Care Teams Rubber Flap Cutter Relationship Specialty Start Date End Date Jhonny Garrett MD [address] [place] [phone] PCP - General Family Practice 03/12/23 documented as of this encounter
--- OUTSIDE RECORDS SUMMARY | 2024-12-09 10:11 | XMS_ITS | Encounter Summary ---
Author Organization [employer] Address [address] [place] [address] Care Team Providers Care Phys Assistant Name Role Phone Jhonny Garrett MD Primary Care Provider [phone] Encounter Details Date Type Department Care Team (Late st Contact Info) Description 11/15/1999 Outpatient Historical [facility] JANI MCLEAN, & Indio Hudson MD Social History Tobacco Use Types Packs/Day Years Used Date Smoking Tobacco: Never Assessed Comments Unknown Sex and Gender Information Value Date Recorded Sex Assigned at Not on file Legal Sex Female 2:48 AM AVIATION MEDICINE SPECIALIST Gender Identity Not on file Sexual Orientation Not on file documented as of this encounter Plan of Treatment Not on file documented as of this encounter Visit Diagnoses Not on filedocumented in this encounter Care Teams Phys Assistant Relationship Specialty Start Date End Date Jhonny Garrett MD [address] [place] [phone] PCP - General Family Practice 03/12/23 documented as of this encounter
--- OUTSIDE RECORDS SUMMARY | 2024-12-09 10:11 | XMS_ITS | Encounter Summary ---
Author Organization [employer] Address [address] [place] [address] Care Team Providers Care Slab Lifting Engineer Name Role Phone Jhonny Garrett MD Primary Care Provider [phone] Encounter Details Date Type Department Care Team (Late st Contact Info) Description 11/02/1997 Outpatient Historical [facility] Bryant Alcocer Social History Tobacco Use Types Packs/Day Years Used Date Smoking Tobacco: Never Assessed Comments Unknown Sex and Gender Information Value Date Recorded Sex Assigned at Not on file Legal Sex Female 2:48 AM RESIDENT CARE AID Gender Identity Not on file Sexual Orientation Not on file documented as of this encounter Plan of Treatment Not on file documented as of this encounter Visit Diagnoses Not on filedocumented in this encounter Care Teams Slab Lifting Engineer Relationship Specialty Start Date End Date Jhonny Garrett MD [address] [place] [phone] PCP - General Family Practice 03/12/23 documented as of this encounter
--- OUTSIDE RECORDS SUMMARY | 2024-12-09 10:11 | XMS_ITS | Encounter Summary ---
Author Organization [employer] Address [address] [place] [address] Care Team Providers Care Supply Chain Manager Name Role Phone Jhonny Garrett MD Primary Care Provider [phone] Encounter Details Date Type Department Care Team (Late st Contact Info) Description 10/05/1997 Outpatient Historical [facility] Bryant Alcocer Social History Tobacco Use Types Packs/Day Years Used Date Smoking Tobacco: Never Assessed Comments Unknown Sex and Gender Information Value Date Recorded Sex Assigned at Not on file Legal Sex Female 2:48 AM GRADUATE STUDENT Gender Identity Not on file Sexual Orientation Not on file documented as of this encounter Plan of Treatment Not on file documented as of this encounter Visit Diagnoses Not on filedocumented in this encounter Care Teams Supply Chain Manager Relationship Specialty Start Date End Date Jhonny Garrett MD [address] [place] [phone] PCP - General Family Practice 03/12/23 documented as of this encounter
--- OUTSIDE RECORDS SUMMARY | 2024-12-09 10:11 | XMS_ITS | Encounter Summary ---
Author Organization [employer] Address [address] [place] [address] Care Team Providers Care Service Now Developer Name Role Phone Jhonny Garrett MD Primary Care Provider [phone] Encounter Details Date Type Department Care Team (Late st Contact Info) Description 03/08/2000 Outpatient Historical [facility] J[facility] MCLEAN, & Indio Hudson MD Social History Tobacco Use Types Packs/Day Years Used Date Smoking Tobacco: Never Assessed Comments Unknown Sex and Gender Information Value Date Recorded Sex Assigned at Not on file Legal Sex Female 2:48 AM ICE RINK ATTENDANT Gender Identity Not on file Sexual Orientation Not on file documented as of this encounter Plan of Treatment Not on file documented as of this encounter Visit Diagnoses Not on filedocumented in this encounter Care Teams Service Now Developer Relationship Specialty Start Date End Date Jhonny Garrett MD [address] [place] [phone] PCP - General Family Practice 03/12/23 documented as of this encounter
--- OUTSIDE RECORDS SUMMARY | 2024-12-09 10:11 | XMS_ITS | Clinical Summary ---
Author Organization [facility]ram[facility] correa [facility] Address [address] [place] [address] Care Team Providers Care Casino Controller Name Role Phone Jhonny Garrett MD Primary Care Provider [phone] Allergies Active Allergy Reactions Criticality Noted Date [...] on file Legal Sex Female 2:48 AM VEGETABLE WASHER Gender Identity Not on file Sexual Orientation Not on file Last Filed Vital Signs Vital Sign Reading Time Taken Comments Blood Pressure 156/93 03/12/2023 3:15 PM VEGETABLE WASHER Pulse 60 03/12/2023 3:11 PM VEGETABLE WASHER Temperature 36.2 C (97.2 F) 03/12/2023 3:11 PM VEGETABLE WASHER Respiratory Rate 10 03/12/2023 3:11 PM VEGETABLE WASHER Oxygen Saturation 95% 03/12/2023 3:11 PM VEGETABLE WASHER Inhaled Oxygen Concentration - - Weight 152.4 kg (336 lb) 03/12/2023 3:11 PM VEGETABLE WASHER Height 177.8 cm (5' 10) 03/12/2023 3:11 PM VEGETABLE WASHER Body Mass Index 48.21 03/12/2023 3:11 PM VEGETABLE WASHER Plan of Treatment Health Maintenance Due Date [...] (1 of 2) 05/06/2015 INFLUENZA VACCINE (#1) 2024 Insurance DUAL COMPLETE HMO [facility] [id number] Care Teams Casino Controller Relationship Specialty Start Date End Date Jhonny Garrett MD [address] [place] [phone] PCP - General Family Practice 03/12/23
--- OUTSIDE RECORDS SUMMARY | 2024-12-09 10:11 | XMS_ITS | Encounter Summary ---
Author Organization [employer] Address [address] [place] [address] Care Team Providers Care Wash Oil Cooler Operator Name Role Phone Jhonny Garrett MD Primary Care Provider [phone] Encounter Details Date Type Department Care Team (Late st Contact Info) Description 04/06/1998 Outpatient Historical [facility], & Indio Hudson MD Social History Tobacco Use Types Packs/Day Years Used Date Smoking Tobacco: Never Assessed Comments Unknown Sex and Gender Information Value Date Recorded Sex Assigned at Not on file Legal Sex Female 2:48 AM AMPHIBIOUS OPERATIONS OFFICER Gender Identity Not on file Sexual Orientation Not on file documented as of this encounter Plan of Treatment Not on file documented as of this encounter Visit Diagnoses Not on filedocumented in this encounter Care Teams Wash Oil Cooler Operator Relationship Specialty Start Date End Date Jhonny Garrett MD [address] [place] [phone] PCP - General Family Practice 03/12/23 documented as of this encounter
--- OUTSIDE RECORDS SUMMARY | 2024-12-09 10:11 | XMS_ITS | Clinical Summary ---
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 Gender Identity Not on file Sexual Orientation Not on file Obstetrics History Last Filed Vital Signs Vital Sign Reading Time Taken Comments Blood Pressure 125/80 12/19/2023 9:01 AM ACCOUNTANT HELPER Pulse 89 12/19/2023 9:01 AM ACCOUNTANT HELPER Temperature 36.7 C (98.1 F) 12/19/2023 9:01 AM ACCOUNTANT HELPER Respiratory Rate - - Oxygen Saturation 95% 03/10/2022 11: 01 AM ACCOUNTANT HELPER Inhaled Oxygen Concentration - - Weight 141.2 kg (311 lb 3.2 oz) 12/19/2023 9:01 AM ACCOUNTANT HELPER Height 177.8 cm (5' 10) 12/19/2023 9:01 AM ACCOUNTANT HELPER Body Mass Index 44.65 12/19/2023 9:01 AM ACCOUNTANT HELPER Plan of Treatment Health Maintenance Due Date Last Done Comments Breast Cancer Screening-Mammogram 1965 Cervical Cancer Screening 1965 Colon Cancer Screening-Colonoscopy 1965 Depression Screening 1965 Hepatitis C Screening 1965 DTaP/Tdap/Td Vaccine (1 - Tdap) 1976 Hepatitis B Screening 05/06/1983 Regular Well Visit/Exam 18-64 05/06/1983 Zoster Vaccine (1 of 2) 05/06/2015 Covid-19 Vaccine (4 - 2024-2 6 season) 2024 11/19/2020, 02/20/2020, 01/30/2020 Influenza Vaccine (#1) 2024 Pneumococcal vaccine <65 Aged Out No longer eligible based on patient's age to complete this topic Insurance [facility] H[facility]/PPO Address: [id number] [place] [address] [facility]PPO Address: [address] [place] [address] [facility] H[facility]/PPO Address: [place] [address] [facility] H[facility]/PPO Address: [address] [place] [address] [facility] Care Teams Software Lead Relationship Specialty Start Date End Date Zehra Sneed PCP - General Pediatric Cardiology 10/24/23 Indio Bellamy MD [address] [address] 01/18/22 Jhonny Garrett MD [address] [address] Referring Physician Family Medicine 06/01/22
--- OUTSIDE RECORDS SUMMARY | 2024-12-09 10:11 | XMS_ITS | Encounter Summary ---
Author Organization [employer] Address 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
--- OUTSIDE RECORDS SUMMARY | 2024-12-09 10:11 | XMS_ITS | Encounter Summary ---
Author Organization [employer] Address 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
--- OUTSIDE RECORDS SUMMARY | 2024-12-09 10:11 | XMS_ITS | Encounter Summary ---
Author Organization [email or web address] Address 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
[2024-12-09 12:26] LABS: Hematocrit 37.8 % (37.0-47.0); Hemoglobin 12.2 g/dL (12.0-15.0); Immature Granulocyte Percent A 0.6 % (0-0.5); Lymphocytes Absolute Auto 1.22 K/mm3 (0.9-3.2); Mean Corpuscular HGB Conc 32.3 g/dl (32-36); Mean Corpuscular Hemoglobin 30.5 pg (26-34); Mean Corpuscular Volume 94.5 fl (80-100); Nucleated Red Blood Cells Absolute Auto 0.000 K/mm3 (0.0-0.012); Nucleated Red Blood Cells Perc 0.0 % (0.0-0.2); Platelet Count Result 203 k/mm3 (150-375); Red Blood Count 4.00 M/mm3 (4.2-5.4); White Blood Count 3.6 K/mm3 (4.5-10.0)
[2024-12-09 12:45] LABS: Iron 69 ug/dL (37-170)
[2024-12-09 12:46] LABS: Anion Gap 9 mmol/L (4-12); Blood Urea Nitrogen 11 mg/dL (7-17); Calcium 9.0 mg/dL (8.4-10.2); Carbon Dioxide 24 mmol/L (22-30); Chloride 104 mmol/L (98-107); Cholesterol 218 mg/dL (0-200); Estimated Glomerular Filt Rate > 60; Glucose 85 mg/dL (65-110); HDL Direct 50 mg/dL; Potassium 4.2 mmol/L (3.4-5.0); Sodium 137 mmol/L (137-145); Triglycerides 66 mg/dL (<150)
[2024-12-09 12:54] LABS: Percent Iron Saturation 25 % (20-50)
[2024-12-09 13:07] LABS: Free T4 Free Thyroxine 1.76 ng/dL (0.78-2.19)
[2024-12-09 13:22] LABS: Thyroid Stimulating Hormone 0.387 uIU/mL (0.465-4.680)
[2024-12-09 13:26] LABS: Ferritin 166.00 ng/mL (11.1-264)
== END 2024-12-09 09:19 | disposition home or self-care (01) ==
PROVIDERS: PCP Nurse Practitioner Family; Visit Provider Nurse Practitioner Family
DX: D64.9 Anemia, unspecified (principal); I10 Essential (primary) hypertension; E03.9 Hypothyroidism, unspecified; E03.8 Other specified hypothyroidism; E78.5 Hyperlipidemia, unspecified
CPT/HCPCS: 36415; 80048; 80061; 82728; 83540; 83550; 84439; 84443; 85025